=== PATIENT | male | born 1975 | race Caucasian/White ===

== ENCOUNTER 2019-02-10 11:03 | Emergency (ER) | payer OTHER ==
[~2019-02-10] VITALS: Ht 177.8 cm; Wt 158.8 kg
--- OUTSIDE RECORDS SUMMARY | 2019-02-10 11:08 | XMS REPORT ---
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
--- OUTSIDE RECORDS SUMMARY | 2019-02-10 11:08 | XMS REPORT | Continuity of Care Document ---
Author Organization Unknown Address Unknown Allergies There is no data. Medications There is no data. Problems There is no data. Procedures There is no data. Results Test Result Range GC/CHLAMYDIA (SWAB OR URINE)-RAPID - 11/12/18 15:50 CHLAMYDIA TRACHOMATIS RNA, TMA NOT DETECTED NOT DETECTED NEISSERIA GONORRHOEAE RNA, TMA NOT DETECTED NOT DETECTED COMMENT NRG Encounters ACCT No. Visit Date/Time Discharge Status Pt. Type Provider Facility Loc./Unit Complaint [id number] 11/12/2018 15:20:00 11/12/2018 23:59:59 CLS Outpatient BHARATH HANNA [facility] IN [facility] [id number] 11/12/2018 15:20:00 Document Registration
--- NOTE | 2019-02-10 11:24 | ED Upper Extremity ---
General Chief Complaint: Laceration Stated Complaint: WC RT FINGERS LAC Source: patient Exam Limitations: no limitations History of Present Illness Date Seen by Provider: Feb 10, 2019 Time Seen by Provider: 11:15 Initial Comments The patient is a pleasant 44-year-old male presents for evaluation of right fourth and fifth finger injuries. He states that he was at work using a saw and only cut his fingers. 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 He denies any other injuries or complaints. There is unsure of his most recent tetanus Onset: just prior to arrival Allergies and Home Medications Allergies Coded Allergies: No Known Drug Allergies (Unverified , 02/10/19) Patient Home Medication List Home Medication List Reviewed: Yes Review of Systems Constitutional: no symptoms reported EENTM: no symptoms reported Respiratory: no symptoms reported Cardiovascular: no symptoms reported Gastrointestinal: no symptoms reported Genitourinary: no symptoms reported Musculoskeletal: other (laceration to right fifth finger, superficial laceration to right fourth finger) Skin: no symptoms reported Psychiatric/Neurological: No Symptoms Reported All Other Systems Reviewed Negative Unless Noted: Yes Past Eeagatz-Oqgcpn-Vmkfov Hx Past Med/Social Hx: Reviewed Nursing Past Med/Soc Hx Patient Social History Alcohol Use: Occasionally Uses Recreational Drug Use: No Smoking Status: Never a Smoker 2nd Hand Smoke Exposure: No Recent Hopitalizations: No Physical Abuse: No Sexual Abuse: No Mistreated: No Fear: No Seasonal Allergies Seasonal Allergies: No Past Medical History Surgeries: Yes (lymph node removal) Respiratory: No Cardiac: Yes Hypertension Neurological: No Genitourinary: No Gastrointestinal: No Musculoskeletal: No Endocrine: No HEENT: No Cancer: No Psychosocial: No Integumentary: No Blood Disorders: No Adverse Reaction/Blood Tranf: No Physical Exam Vital Signs Vital Signs - First Documented 02/10/19 11:11 Temp 98.2 Pulse 87 Resp 16 B/P (MAP) 159/102 (121) Pulse Ox 95 Capillary Refill : Height, Weight, BMI Height: '" Weight: lbs. oz. kg; BMI Method: General Appearance: WD/WN HEENT: PERRL/EOMI, normal ENT inspection, TMs normal Cardiovascular: regular rate, rhythm, no edema Respiratory: chest non-tender, normal breath sounds, no respiratory distress Gastrointestinal: normal bowel sounds, non tender, soft Shoulder: normal inspection Elbow/Forearm: normal inspection Wrist: Yes normal inspection Hand: laceration (superficial laceration to the fourth digit of the right hand at the fingertip laterally, flap-like laceration to the right fifth digit with injury to the nail however no injury to the nail bed approximately 1.5 cm in total length), nail injury 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, alert, normal mood/affect, oriented x 3 Skin: normal color, warm/dry, other (laceration as described above) Procedures/Interventions Wound Location: Upper Extremities Other Wound Location Right fifth digit laceration through the fingertip going into the nail but no nail bed injury Wound's Depth, Shape: flap, nail-avulsed Wound Explored: clean Irrigated w/ Saline (ccs): 1000 Wound Debrided: moderate Suture: Vicryl Suture Size: 5-0 Number of Sutures: 4 Layer Closure?: 1 Sterile Dressing Applied?: Yes Progress Patient tolerated the repair well after performing a digital block on both the fourth and fifth digits, after soaking and cleaning the laceration to the fourth digit was quite superficial mild and was repaired with Dermabond. Progress/Results/Core Measures Results/Orders My Orders Orders - DAMON MILNER DO DiphtWander(Acell),Tet Adult (Boostrix (02/10/19 11:45) Lidocaine 1% Inj 50 Ml (Xylocaine 1% Inj (02/10/19 11:45) Lidocaine 1% Inj 20 Ml (Xylocaine 1% Inj (02/10/19 11:41) Lidocaine 1% Inj 20 Ml (Xylocaine 1% Inj (02/10/19 12:15) Medications Given in ED Current Medications Medications Dose Ordered Sig/Carol Route Start Time Stop Time Status Last Admin Dose Admin Diphtheria/ Tetanus/Acell Pertussis 0.5 ml ONCE ONCE IM 02/10/19 11:45 02/10/19 11:46 DC 02/10/19 11:49 0.5 ML Lidocaine HCl 20 ml ONCE ONCE INJ 02/10/19 12:15 02/10/19 12:16 DC 02/10/19 12:29 20 ML Vital Signs/I&O 02/10/19 11:11 Temp 98.2 Pulse 87 Resp 16 B/P (MAP) 159/102 (121) Pulse Ox 95 Progress Progress Note : Progress Note @1305 - Patient tolerated the repair very well. Tetanus has been updated. Four nylon 50 sutures were placed in the right fifth digit and Dermabond was used for the fourth digit as it was quite superficial. Patient will be given a prescription for Keflex to prevent infection. He is to follow up with his ar tificial health in 2-3 days for wound check and in 7-10 days for suture removal. Patient expresses verbal understanding and agreement with the plan and has no additional complaints. Departure Impression Primary Impression: Laceration of finger of right hand with damage to nail Disposition: 01 HOME, SELF-CARE Condition: Stable Departure-Patient Inst. Referrals: NO,LOCAL PHYSICIAN (PCP/Family) Primary Care Physician Patient Instructions: Laceration Repair With Stitches (DC), Laceration Repair With Glue (DC) Add. Discharge Instructions: As discussed her sutures should be removed in 7-10 days. Take the prescribed medications directed. Return to the ER for new or worsening symptoms. Follow-up with your doctor in the next 2-3 days for wound check. Scripts Cephalexin (Keflex) 500 Mg Capsule 500 MG PO TID for 7 Days, #21 CAP Prov: DAMON MILNER DO 02/10/19 DAMON MILNER DO Feb 10, 2019 11:24
[2019-02-10] MEDS ORDERED: LIDOCAINE 1% INJ 20 ML 20 ML VIAL ONE (11:41)
[2019-02-10] MEDS ORDERED: LIDOCAINE 1% INJ 50 ML (XYLOCAINE) VIAL IJ ONE (11:45)
[2019-02-10] MEDS ORDERED: TETANUS,DIPTH,PERTUSS P/F (BOOSTRIX) 0.5 ML VIAL IM ONE (11:45)
[2019-02-10] MEDS ORDERED: LIDOCAINE 1% INJ 20 ML 20 ML VIAL INJ ONE (12:15)
[2019-02-10] MEDS ORDERED: CEPH-507 PO (13:04)
[2019-02-10 13:18] VITALS: BP 134/96
== END 2019-02-10 13:18 | disposition home or self-care (01) ==
LOC: ER FS 11:05
DX: S61.316A Laceration without foreign body of right little finger with damage to nail, initial encounter (principal); S61.214A Laceration without foreign body of right ring finger without damage to nail, initial encounter; I10 Essential (primary) hypertension; Z23 Encounter for immunization; W31.2XXA Contact with powered woodworking and forming machines, initial encounter; Y92.59 Other trade areas as the place of occurrence of the external cause; Y99.0 Civilian activity done for income or pay
CPT/HCPCS: 12042; 90471; 90715

== ENCOUNTER 2020-12-04 16:55 | Inpatient (IN) | payer BC, OTHER ==
[~2020-12-04] VITALS: Ht 177.8 cm; Wt 174.4 kg
[~2020-12-04 16:55] MED LIST: CEPH-507 PO
[2020-12-04 17:00] VITALS: BP 138/83
--- NOTE | 2020-12-04 17:12 | ED Integumentary General ---
General Stated Complaint: PERINEAL ABCESS Source: patient Exam Limitations: no limitations History of Present Illness Date Seen by Provider: December 04, 2020 Time Seen by Provider: 17:03 Initial Comments This is a 45 yo male who was referred to the ER by [facility] for perineum abscess. Ekaterina SY reported patient was evaluated and treated yesterday for abscess behind his left thigh and left testicle. States she I&D both sites and was able to express moderate amount of purulent drainage from his posterior thigh, but none from his testicle. His thigh was packed with iodoform and covered with 4x4. He received Rocephin 1gm IM, steroid inj, and Doxycycline PO. He presented today for re-evaluation and was found to have increasing redness, induration and pain along his left testicle. Reports mild improvement of left thigh abscess. She recommended he follow up in the emergency department as he is an NIDDM and d/t the severity of symptoms within 24 hours. Upon ER arrival he reports 7/10 constant burning pain in his left testicle and left posterior thigh that radiates into his suprapubic region. No alleviating factors. Pain is worse with movement and ambulation. He denies fever, chills, cough, shortness of breath, nausea/vomiting, diarrhea, abdominal pain. Allergies and Home Medications Allergies Coded Allergies: No Known Drug Allergies (Unverified , 02/10/19) Home Medications Cephalexin 500 Mg Capsule, 500 MG PO TID Prescribed by: DAMON MILNER on 02/10/19 [id number] Patient Home Medication List Home Medication List Reviewed: Yes Review of Systems Review of Systems Constitutional: no symptoms reported EENTM: no symptoms reported Cardiovascular: no symptoms reported Gastrointestinal: see HPI Genitourinary: no symptoms reported Musculoskeletal: no symptoms reported Skin: see HPI Psychiatric/Neurological: No Symptoms Reported Endocrine: No Symptoms Reported Hematologic/Lymphatic: No Symptoms Reported Past Cdfzluk-Erylwx-Dpudoe Hx Patient Social History 2nd Hand Smoke Exposure: No Recent Hopitalizations: No Seasonal Allergies Seasonal Allergies: No Past Medical History Surgeries: Yes (lymph node removal) Respiratory: No Cardiac: Yes Hypertension Neurological: No Genitourinary: No Gastrointestinal: No Musculoskeletal: No Endocrine: No HEENT: No Cancer: No Psychosocial: No Integumentary: No Blood Disorders: No Adverse Reaction/Blood Tranf: No Physical Exam Vital Signs Vital Signs - First Documented 12/04/20 17:00 Temp 36.4 Pulse 89 Resp 20 B/P (MAP) 138/83 (101) Pulse Ox 94 O2 Delivery Room Air Capillary Refill : General Appearance: WD/WN, no apparent distress HEENT: PERRL/EOMI, normal ENT inspection, pharynx normal Neck: full range of motion, normal inspection Cardiovascular: normal peripheral pulses, regular rate, rhythm, no murmur Respiratory: chest non-tender, lungs clear, normal breath sounds, no respiratory distress, no accessory muscle use Gastrointestinal: normal bowel sounds, non tender, soft; No distended, No guarding, No hernia, No mass Extremities: non-tender, normal inspection, no pedal edema Neurologic/Psychiatric: no motor/sensory deficits, alert, normal mood/affect, oriented x 3 Skin: normal color, warm/dry Skin Problem Location: other (left posterior thigh and left testicle ) Skin Problem Character: erythema, swelling, tenderness, warm Comments Left posterior thigh: apx [id number] area of erythema and swelling. 0.5cm incision with iodoform packing in place. No sloughing, eschar, streaking, odor, or purulent drainage appreciated. Left testicle: apx 2mm incision, no drainage or discharge. Erythema and i nduration along the outer aspect of his left testicle ascending toward his suprapubic region. Tender to touch. No erythema/swelling or induration appreciated in the perianal region. Procedures/Interventions Suture Size: 5-0 Progress/Results/Core Measures Results/Orders Lab Results Laboratory Tests Test 12/04/20 17:25 Range/Units White Blood Count 11.6 H 4.3-11.0 10^3/uL Red Blood Count 5.02 4.30-5.52 10^6/uL Hemoglobin 14.6 13.3-17.7 g/dL Hematocrit 44 40-54 % Mean Corpuscular Volume 87 80-99 fL Mean Corpuscular Hemoglobin 29 25-34 pg Mean Corpuscular Hemoglobin Concent 33 32-36 g/dL Red Cell Distribution Width 13.3 10.0-14.5 % Platelet Count 320 130-400 10^3/uL Mean Platelet Volume 10.9 9.0-12.2 fL Immature Granulocyte % (Auto) 0 % Neutrophils (%) (Auto) 79 H 42-75 % Lymphocytes (%) (Auto) 11 L 12-44 % Monocytes (%) (Auto) 9 0-12 % Eosinophils (%) (Auto) 1 0-10 % Basophils (%) (Auto) 0 0-10 % Neutrophils # (Auto) 9.1 H 1.8-7.8 10^3/uL Lymphocytes # (Auto) 1.2 1.0-4.0 10^3/uL Monocytes # (Auto) 1.1 H 0.0-1.0 10^3/uL Eosinophils # (Auto) 0.1 0.0-0.3 10^3/uL Basophils # (Auto) 0.0 0.0-0.1 10^3/uL Immature Granulocyte # (Auto) 0.0 0.0-0.1 10^3/uL Prothrombin Time 13.7 12.2-14.7 SEC INR Comment 1.0 0.8-1.4 Activated Partial Thromboplast Time 26 24-35 SEC Sodium Level 137 135-145 MMOL/L Potassium Level 3.7 3.6-5.0 MMOL/L Chloride Level 98 98-107 MMOL/L Carbon Dioxide Level 29 21-32 MMOL/L Anion Gap 10 5-14 MMOL/L Blood Urea Nitrogen 16 7-18 MG/DL Creatinine 0.86 0.60-1.30 MG/DL Estimat Glomerular Filtration Rate > 60 BUN/Creatinine Ratio 19 Glucose Level 99 70-105 MG/DL Lactic Acid Level 1.27 0.50-2.00 MMOL/L Calcium Level 9.3 8.5-10.1 MG/DL Corrected Calcium 9.2 8.5-10.1 MG/DL Total Bilirubin 1.2 H 0.1-1.0 MG/DL Aspartate Amino Transf (AST/SGOT) 14 5-34 U/L Alanine Aminotransferase (ALT/SGPT) 23 0-55 U/L Alkaline Phosphatase 56 40-136 U/L Total Protein 7.6 6.4-8.2 GM/DL Albumin 4.1 3.2-4.5 GM/DL My Orders Orders - PATRICIO GALLARDO MANAGER CLINICAL RESEARCH Cbc With Automated Diff (12/04/20 17:03) Comprehensive Metabolic Panel (12/04/20 17:03) Blood Culture (12/04/20 17:03) Sputum Culture (12/04/20 17:03) Urinalysis (12/04/20 17:03) Urine Culture (12/04/20 17:03) Protime With Inr (12/04/20 17:03) Partial Thromboplastin Time (12/04/20 17:03) Chest 1 View, Ap/Pa Only (12/04/20 17:03) Ed Iv/Invasive Line Start (12/04/20 17:03) Vital Signs Adult Sepsis Patie Q15M (12/04/20 17:03) O2 (12/04/20 17:03) Lactic Acid Analyzer (12/04/20 17:03) Fentanyl Inj (Sublimaze Injection) (12/04/20 17:30) Ct Abdomen/Pelvis W (12/04/20 18:09) Diphenhydramine Injection (Benadryl Inje (12/04/20 18:45) Diphenhydramine Injection (Benadryl Inje (12/04/20 18:30) Iohexol Injection (Omnipaque 350 Mg/Ml 1 (12/04/20 19:00) Received Contrast (Hold Metformin- Contr (12/04/20 19:00) Ns (Ivpb) (Sodium Chloride 0.9% Ivpb Bag (12/04/20 19:00) Medications Given in ED Current Medications Medications Dose Ordered Sig/Carol Route Start Time Stop Time Status Last Admin Dose Admin Diphenhydramine HCl 25 mg ONCE ONCE IVP 12/04/20 18:45 12/04/20 18:46 DC 12/04/20 18:45 25 MG Fentanyl Citrate 50 mcg ONCE ONCE IVP 12/04/20 17:30 12/04/20 17:31 DC 12/04/20 18:11 50 MCG Iohexol 100 ml ONCE ONCE IV 12/04/20 19:00 12/04/20 19:01 DC 12/04/20 19:07 100 ML Sodium Chloride 100 ml ONCE ONCE IV 12/04/20 19:00 12/04/20 19:01 DC 12/04/20 19:07 80 ML Vital Signs/I&O 12/04/20 12/04/20 17:00 17:09 Temp 36.4 36.6 Pulse 89 99 Resp 20 17 B/P (MAP) 138/83 (101) 144/97 (113) Pulse Ox 94 O2 Delivery Room Air Progress Progress Note : Progress Note Patient examined and in no acute distress. With severity of symptoms in short time span and history of diabetes initial concern is for abscess, sepsis, and jessie gangrene. Initiated sepsis protocol. Orders placed for Fentanyl 50mcg IVP for pain. Will monitor. Labs reviewed and are unremarkable. WBC-11.6, lactic-1.[address] abd pelvis show distortion of the subcutaneous fat near the base of the penis and about the left testicle likely from inflammatory/ infectious process. Discussed findings with Dr. Coelho general surgery, recommended admission with IV antibiotics and US in am. Reviewed case with instructional leader hospitalist Dr. Johnson, accepted patient admission to medical unit. Reviewed POC with patient and spouse and they are agreeable with plan and this time. Plan: Admit to medical unit for cellulitis of left testicle. Cellulitis -Zosyn 3.375mg IV q 6 hours -Doxycycline 100mg PO BID -Consult General Surgery, done in ER -Regular diet -Activity as tolerated -VS per unit policy -HOLD metformin per protocol d/t contrast received in ED. Pain/fever -Fentanyl 50mcg IVP q2 hours PRN pain -Tylenol 650mg PO q6 hours PRN pain Nausea/vomiting -Zofran 4mg IVP q 6 hours PRN VTE -Lovenox 40mg subcut q24 hours FULL CODE Diagnostic Imaging Diagonstic Imaging: Xray Plain Films/CT/US/NM/MRI: chest Comments NAME: GEOVANNY ISBELL [facility] REC#: [id number] PT STATUS: REG ER : 1975 PHYSICIAN: PATRICIO GALLARDO MANAGER CLINICAL RESEARCH ADMIT DATE: 12/04/20/ER Draft Date of Exam:12/04/20 CHEST 1 VIEW, AP/PA ONLY EXAMINATION: Portable erect AP chest at 6:10 p.m. INDICATION: Perineal abscess. COMPARISON: There are no prior exams available for comparison. FINDINGS: The heart size is within normal limits. The lungs are clear. The osseous structures, where visualized, are intact. IMPRESSION: Negative for active disease. Dictated on workstation # [id number] Dict: 12/04/20 1828 Trans: 12/04/20 183 [facility] [id number] Interpreted by: MIRIAM SMALL MD Electronically signed by: Reviewed: Reviewed by Me Diagonstic Imaging: CT Plain Films/CT/US/NM/MRI: abdomen, pelvis Comments [facility] [place] NAME: GEOVANNY ISBELL [facility] REC#: [id number] PT STATUS: REG ER : 1975 PHYSICIAN: PATRICIO GALLARDO MANAGER CLINICAL RESEARCH ADMIT DATE: 12/04/20/ER Draft Date of Exam:12/04/20 CT ABDOMEN/PELVIS W PROCEDURE: CT abdomen and pelvis with contrast. TECHNIQUE: Multiple contiguous axial images were obtained through the abdomen and pelvis after administration of intravenous contrast. Auto Exposure Controls were utilized during the CT exam to meet ALARA standards for radiation dose reduction. All CT scans use one or more of the following dose optimizing techniques: automated exposure control, MA and/or KvP adjustment based on patient size and exam type or iterative reconstruction. INDICATION: Left testicular and low abdominal pain. COMPARISON: There are no prior studies available for comparison. There is no pelvic mass or free fluid collection to suggest an acute abnormality. However, there does seem be some distortion of the subcutaneous fat about the base of the penis and along the left scrotum where visualized. This does suggest an inflammatory/infectious process. If further study is desired, then testicular ultrasound would be recommended. The urinary bladder and prostate gland are grossly unremarkable. There are few diverticula in the sigmoid colon but there is no sign of acute diverticulitis. The appendix was visualized and is not abnormally thickened. The liver, spleen, pancreas, gallbladder, adrenals, kidneys, aorta and inferior vena cava and portal vein are unremarkable for an acute abnormality. The stomach is partially filled with fluid and consequently difficult to assess. The lung bases are clear. The bone windows are unremarkable for a fracture or for a destructive lesion. There is degenerative disc and bone disease at L4-L5 and L5-S1. IMPRESSION: 1. The distortion of the subcutaneous fat near the base of the penis and about the left testicle does suggest an inflammatory/infectious process. Ultrasound would be recommended for further evaluation. 2. There is no acute abnormality of the abdomen and pelvis noted otherwise. 3. There is degenerative disc and bony disease at L4-L5 and L5-S1. Dictated on workstation # [id number] Dict: 12/04/201930 Trans: 12/04/201937 [facility] [id number] Interpreted by: MIRIAM SMALL MD Electronically signed by: Reviewed: Reviewed by Me Departure Communication (Admissions) Time/Spoke to Admitting Phy: 20:[address] Johnson, accepted patient admission. Impression Primary Impression: Cellulitis Disposition: ADMITTED INPATIENT Condition: Stable Admissions Decision to Admit Reason: Admit from ER (General) Decision to Admit/Date: December 04, 2020 Time/Decision to Admit Time: 20:11 Departure-Patient Inst. Referrals: NO,LOCAL PHYSICIAN (PCP/Family) Primary Care Physician PATRICIO GALLARDO MANAGER CLINICAL RESEARCH December 04, 2020 17:12
[2020-12-04] MEDS ORDERED: fentaNYL INJ 100 MCG/2 ML AMP IVP ONE (17:30)
[2020-12-04 17:40] LABS: BASOPHILS % (AUTO) 0 % (0-10); EOSINOPHILS # (AUTO) 0.1 10^3/uL (0.0-0.3); EOSINOPHILS % (AUTO) 1 % (0-10); HEMATOCRIT 44 % (40-54); HEMOGLOBIN 14.6 g/dL (13.3-17.7); LYMPHOCYTES # (AUTO) 1.2 10^3/uL (1.0-4.0); LYMPHOCYTES % (AUTO) 11 % (12-44); MEAN CORPUSCULAR HEMOGLOBIN 29 pg (25-34); MEAN CORPUSCULAR HGB CONC 33 g/dL (32-36); MEAN CORPUSCULAR VOLUME 87 fL (80-99); MEAN PLATELET VOLUME 10.9 fL (9.0-12.2); MONOCYTES # (AUTO) 1.1 10^3/uL (0.0-1.0); MONOCYTES % (AUTO) 9 % (0-12); NEUTROPHILS # (AUTO) 9.1 10^3/uL (1.8-7.8); NEUTROPHILS % (AUTO) 79 % (42-75); PLATELET COUNT 320 10^3/uL (130-400); WHITE BLOOD COUNT 11.6 10^3/uL (4.3-11.0)
[2020-12-04 17:48] LABS: ALBUMIN 4.1 GM/DL (3.2-4.5)
[2020-12-04 17:49] LABS: CHLORIDE 98 MMOL/L (98-107); POTASSIUM 3.7 MMOL/L (3.6-5.0); SODIUM 137 MMOL/L (135-145)
[2020-12-04 17:50] LABS: CALCIUM 9.3 MG/DL (8.5-10.1)
[2020-12-04 17:51] LABS: GLUCOSE 99 MG/DL (70-105); TOTAL PROTEIN 7.6 GM/DL (6.4-8.2)
[2020-12-04 17:52] LABS: CARBON DIOXIDE 29 MMOL/L (21-32)
[2020-12-04 17:53] LABS: BILIRUBIN,TOTAL 1.2 MG/DL (0.1-1.0)
[2020-12-04 17:54] LABS: ALKALINE PHOSPHATASE 56 U/L (40-136)
[2020-12-04 17:55] LABS: CREATININE SERUM 0.86 MG/DL (0.60-1.30); GFR ESTIMATED > 60; PROTHROMBIN TIME PATIENT 13.7 SEC (12.2-14.7)
[2020-12-04 17:56] LABS: BUN/CREATININE RATIO 19
[2020-12-04 17:57] LABS: ALANINE AMINOTRANSFERASE 23 U/L (0-55)
[2020-12-04] MEDS ORDERED: diphenhydrAMINE 50 MG/ML INJ (BENADRYL) ONE (18:30)
--- NOTE | 2020-12-04 18:32 | Diagnostic Imaging Report ---
EXAMINATION: Portable erect AP chest at 6:10 p.m. INDICATION: Perineal abscess. COMPARISON: There are no prior exams available for comparison. FINDINGS: The heart size is within normal limits. The lungs are clear. The osseous structures, where visualized, are intact. IMPRESSION: Negative for active disease. Dictated by: Dictated on workstation # [id number]
[2020-12-04] MEDS ORDERED: diphenhydrAMINE 50 MG/ML INJ (BENADRYL) IVP ONE (18:45)
[2020-12-04] MEDS ORDERED: IOHEXOL 350 MG/ML 100 ML (OMNIPAQUE 350) VIAL IV ONE (19:00)
[2020-12-04] MEDS ORDERED: NS 100 ML (IVPB) BAG IV ONE (19:00)
[2020-12-04] MEDS ORDERED: HOLD METFORMIN - RECEIVED CONTRAST 20 ML VIAL IV SCH (19:00)
--- NOTE | 2020-12-04 19:38 | Diagnostic Imaging Report ---
PROCEDURE: CT abdomen and pelvis with contrast. TECHNIQUE: Multiple contiguous axial images were obtained through the abdomen and pelvis after administration of intravenous contrast. Auto Exposure Controls were utilized during the CT exam to meet ALARA standards for radiation dose reduction. All CT scans use one or more of the following dose optimizing techniques: automated exposure control, MA and/or KvP adjustment based on patient size and exam type or iterative reconstruction. INDICATION: Left testicular and low abdominal pain. COMPARISON: There are no prior studies available for comparison. There is no pelvic mass or free fluid collection to suggest an acute abnormality. However, there does seem be some distortion of the subcutaneous fat about the base of the penis and along the left scrotum where visualized. This does suggest an inflammatory/infectious process. If further study is desired, then testicular ultrasound would be recommended. The urinary bladder and prostate gland are grossly unremarkable. There are few diverticula in the sigmoid colon but there is no sign of acute diverticulitis. The appendix was visualized and is not abnormally thickened. The liver, spleen, pancreas, gallbladder, adrenals, kidneys, aorta and inferior vena cava and portal vein are unremarkable for an acute abnormality. The stomach is partially filled with fluid and consequently difficult to assess. The lung bases are clear. The bone windows are unremarkable for a fracture or for a destructive lesion. There is degenerative disc and bone disease at L4-L5 and L5-S1. IMPRESSION: 1. The distortion of the subcutaneous fat near the base of the penis and about the left testicle does suggest an inflammatory/infectious process. Ultrasound would be recommended for further evaluation. 2. There is no acute abnormality of the abdomen and pelvis noted otherwise. 3. There is degenerative disc and bony disease at L4-L5 and L5-S1. Dictated by: Dictated on workstation # [id number]
[2020-12-04 21:15] VITALS: BP 138/83
[2020-12-04] MEDS ORDERED: ACETAMINOPHEN 325 MG TABLET PO PRN (21:30)
[2020-12-04] MEDS ORDERED: CATHETER FLUSH 10 ML SYR IV PRN (21:30)
[2020-12-04] MEDS ORDERED: ONDANSETRON 4 MG/2 ML (SDV) Z0FRAN IV PRN (21:30)
[2020-12-04] MEDS ORDERED: fentaNYL INJ 100 MCG/2 ML AMP IV PRN (21:30)
[2020-12-04] MEDS ORDERED: PIPERACILLIN/TAZO 4.5 GM VIAL (ZOSYN) IV ONE ×2 (22:00→22:01)
[2020-12-04] MEDS ORDERED: PIPERACILLIN/TAZO 4.5 GM/NS 100 ML IV ONE ×2 (22:00)
[2020-12-04] MEDS ORDERED: NS (IVPB) 200 ML ONE (22:01)
[2020-12-04] MEDS: DOXYCYCLINE 100 MG (VIBRAMYCIN) TABLET PO SCH (22:22)
[2020-12-04] MEDS: CATHETER FLUSH 10 ML SYR IV SCH (22:24)
[2020-12-04 23:30] VITALS: BP 127/90
[2020-12-04] MEDS ORDERED: RT-ALBUTEROL/IPRATROPIUM 3 ML (DUONEB) VIAL INH PRN (23:45)
[2020-12-04 23:57] VITALS: BP 131/74
[2020-12-05] MEDS ORDERED: LOSA100T57 PO (02:46)
[2020-12-05] MEDS ORDERED: AMLO-250 PO (02:46)
[2020-12-05] MEDS ORDERED: HYDR25TA4 PO (02:46)
[2020-12-05] MEDS ORDERED: METF-397 PO (02:46)
[2020-12-05] MEDS: PIPERACILLIN/TAZO 4.5 GM/NS 100 ML IV SCH ×6 (03:19→19:50)
[2020-12-05 03:27] VITALS: BP 139/83
[2020-12-05 05:03] LABS: BASOPHILS % (AUTO) 0 % (0-10); EOSINOPHILS # (AUTO) 0.2 10^3/uL (0.0-0.3); EOSINOPHILS % (AUTO) 2 % (0-10); HEMATOCRIT 41 % (40-54); HEMOGLOBIN 13.5 g/dL (13.3-17.7); LYMPHOCYTES # (AUTO) 1.5 10^3/uL (1.0-4.0); LYMPHOCYTES % (AUTO) 15 % (12-44); MEAN CORPUSCULAR HEMOGLOBIN 29 pg (25-34); MEAN CORPUSCULAR HGB CONC 33 g/dL (32-36); MEAN CORPUSCULAR VOLUME 87 fL (80-99); MEAN PLATELET VOLUME 10.9 fL (9.0-12.2); MONOCYTES % (AUTO) 10 % (0-12); NEUTROPHILS # (AUTO) 7.3 10^3/uL (1.8-7.8); NEUTROPHILS % (AUTO) 73 % (42-75); PLATELET COUNT 279 10^3/uL (130-400)
[2020-12-05 05:20] LABS: CHLORIDE 101 MMOL/L (98-107); POTASSIUM 3.3 MMOL/L (3.6-5.0); SODIUM 137 MMOL/L (135-145)
[2020-12-05 05:22] LABS: CALCIUM 9.1 MG/DL (8.5-10.1); GLUCOSE 120 MG/DL (70-105)
[2020-12-05 05:24] LABS: CARBON DIOXIDE 26 MMOL/L (21-32)
[2020-12-05 05:26] LABS: CREATININE SERUM 0.84 MG/DL (0.60-1.30); GFR ESTIMATED > 60
[2020-12-05 05:27] LABS: BUN/CREATININE RATIO 19
[2020-12-05] MEDS: CATHETER FLUSH 10 ML SYR IV SCH ×3 (06:38→19:51)
[2020-12-05] MEDS: DOXYCYCLINE 100 MG (VIBRAMYCIN) TABLET PO SCH ×3 (06:38→18:29)
[2020-12-05 07:59] VITALS: BP 135/69
[2020-12-05] MEDS: ENOXAPARIN 60 MG/0.6 ML (LOVENOX) SYR SC SCH ×2 (08:21→20:10)
--- NOTE | 2020-12-05 09:18 | History & Physical-Hospitalist ---
History of Present Illness HPI/Chief Complaint Pt is a 45yoCM with a PMH of HTn and prediabetes who presented to the ER duet o thigh and testicle abscess and cellulitis. He states he first noticed it on 12/01 but didn't think much of it because he though it was an ingrown hair. 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 He was seen at [facility] where they preformed an incision and drainage of an abscess on his thigh which drained and one of his left testicle which did not drain anything. They gave him Rocephin and Doxycycline. He returned yesterday for a wound check adn to get it repacked and they noticed the erythema was worse and referred him to the ER. Here he was found to have a leukocytosis and was admitted. He reports feeling ok this morning but it is still quite painful. Awaiting usg results. Source: patient Date Seen 12/05/20 Time Seen by a Provider: 09:18 Attending Physician Josselin Johnson MD PCP No,Local Physician Referring Physician Date of Admission December 04, 2020 at 20:28 Home Medications & Allergies Home Medications Reviewed patient Home Medication Reconciliation performed by pharmacy medication reconciliations certified bench jeweler technician and/or nursing. Patients Allergies have been reviewed. Allergies Allergies Coded Allergies No Known Drug Allergies (Unverified02/10/19) Past Medical/Social/Family Hx Patient Social History Marrital Status: Employed/Student: employed Tobacco Use?: No Smoking Status: Never a Smoker Substance use?: No Alcohol Use?: No Pt stated abuse/neglect: No Immunizations Up To Date Influenza Vaccine Up-to-Date: No; Not Current First/Initial COVID19 Vaccinat: September 17 Second COVID19 Vaccination Jeronimo: October 18 Current Status Advance Directives: No Advance Directive Location: Home Communicates: Verbally Primary Language: Bruneian Preferred Spoken Language: Bruneian Is interpretation needed?: No Implanted or Applied Medical D: None Past Medical History HTN, Prediabetes Review of Systems Constitutional: No chills, No fever EENTM: no symptoms reported Respiratory: No cough, No short of breath Cardiovascular: No chest pain, No edema Gastrointestinal: No abdominal pain, No constipation, No diarrhea, No nausea, No vomiting Genitourinary: see HPI; No dysuria, No frequency Musculoskeletal: no symptoms reported Skin: see HPI Psychiatric/Neurological: No Symptoms Reported Physical Exam Physical Exam Vital Signs Vital Signs - First Documented 12/04/20 12/04/20 17:00 23:30 Temp 36.4 Pulse 89 Resp 20 B/P (MAP) 138/83 (101) Pulse Ox 94 O2 Delivery Room Air FiO2 21 Capillary Refill : Less Than 3 Seconds Height, Weight, BMI Height: 5'10.00" Weight: 350lbs. oz. 158.039143sw; 55.16 BMI Method:Stated General Appearance: No Apparent Distress, WD/WN, Obese HEENT: PERRL/EOMI, Moist Mucous Membranes Neck: Normal Inspection, Supple Respiratory: Lungs Clear, No Accessory Muscle Use, No Respiratory Distress Cardiovascular: Regular Rate, Rhythm, No Murmur Gastrointestinal: Normal Bowel Sounds, Soft Extremity: No Calf Tenderness, No Pedal Edema Neurologic/Psychiatric: Alert, Oriented x3, Normal Mood/Affect Skin: Normal Color, Warm/Dry Results Results/Procedures Labs Laboratory Tests 12/04/20 17:25 12/05/20 04:40 Patient resulted labs reviewed. Imaging: Reviewed Imaging Report Imaging [facility], [place] NAME: GEOVANNY ISBELL [facility] REC#: [id number] PT STATUS: ADM IN : 1975 PHYSICIAN: PATRICIO GALLARDO APRN ADMIT DATE: 12/04/20 Signed Date of Exam:12/04/20 CT ABDOMEN/PELVIS W PROCEDURE: CT abdomen and pelvis with contrast. TECHNIQUE: Multiple contiguous axial images were obtained through the abdomen and pelvis after administration of intravenous contrast. Auto Exposure Controls were utilized during the CT exam to meet ALARA standards for radiation dose reduction. All CT scans use one or more of the following dose optimizing techniques: automated exposure control, MA and/or KvP adjustment based on patient size and exam type or iterative reconstruction. INDICATION: Left testicular and low abdominal pain. COMPARISON: There are no prior studies available for comparison. There is no pelvic mass or free fluid collection to suggest an acute abnormality. However, there does seem be some distortion of the subcutaneous fat about the base of the penis and along the left scrotum where visualized. This does suggest an inflammatory/infectious process. If further study is desired, then testicular ultrasound would be recommended. The urinary bladder and prostate gland are grossly unremarkable. There are few diverticula in the sigmoid colon but there is no sign of acute diverticulitis. The appendix was visualized and is not abnormally thickened. The liver, spleen, pancreas, gallbladder, adrenals, kidneys, aorta and inferior vena cava and portal vein are unremarkable for an acute abnormality. The stomach is partially filled with fluid and consequently difficult to assess. The lung bases are clear. The bone windows are unremarkable for a fracture or for a destructive lesion. There is degenerative disc and bone disease at L4-L5 and L5-S1. IMPRESSION: 1. The distortion of the subcutaneous fat near the base of the penis and about the left testicle does suggest an inflammatory/infectious process. Ultrasound would be recommended for further evaluation. 2. There is no acute abnormality of the abdomen and pelvis noted otherwise. 3. There is degenerative disc and bony disease at L4-L5 and L5-S1. Dictated by: Dictated on workstation # [id number] Dict: 12/04/201930 Trans: 12/05/2052 [facility] [id number] Interpreted by: MIRIAM SMALL MD Electronically signed by: MIRIAM SMALL MD 12/05/20 0053 Assessment/Plan Admission Diagnosis Scrotal Cellulitis Admission Status: Inpatient Order (span 2 midnights) Reason for Inpatient Admission: see below Assessment and Plan Scrotal Cellulitis s/p outpatient I&D and antibiotics with worsening Continue on IV abx Await cultures Surgery consulted, appreciate recs HTN Resume home meds Prediabetes Metformin held due to contrast BS 120 fasting DVT ppx: Lovenox PIPPA DAVE MD December 05, 2020 09:18
--- NOTE | 2020-12-05 09:57 | Diagnostic Imaging Report ---
PROCEDURE: US Scrotum. TECHNIQUE: Multiple real-time grayscale images were obtained over the scrotum in various projections bilaterally. INDICATION: Cellulitis of the left scrotum. Correlation is made with recent CT study from one day earlier. Right testicle measures 5.0 x 2.3 x 3.4 cm and the left testicle measures 4.7 x 2.6 x 3.2 cm. Both testes show homogeneous echotexture. No testicular mass is seen. There is normal blood flow to both testes. Epidermides are unremarkable. There is a small right hydrocele. No varicocele is seen. No abnormal fluid collections are identified. IMPRESSION: Essentially unremarkable scrotal ultrasound. Dictated by: Dictated on workstation # [id number]
[2020-12-05] MEDS ORDERED: NAPR220T66 PO (10:12)
[2020-12-05] MEDS ORDERED: DOXY100T2 PO (10:12)
[2020-12-05] MEDS ORDERED: CETI10TA49 PO (10:12)
[2020-12-05 11:22] VITALS: BP 146/84
[2020-12-05] MEDS ORDERED: LORATADINE (CLARITIN) 10 MG TAB PO PRN (12:15)
[2020-12-05 15:39] VITALS: BP 137/85
[2020-12-05 19:45] VITALS: BP 137/79
[2020-12-05] MEDS ORDERED: amLODIPine 5 MG (NORVASC) TAB PO SCH (21:00)
--- NOTE | 2020-12-05 21:50 | Consultation - Surgery ---
History of Present Illness History of Present Illness Patient Consulted On(jewels/time) 12/05/20 21:42 Date Seen by Provider: December 05, 2020 Time Seen by Provider: 13:00 History of Present Illness Consult requested by Dr. Nieto for abscess left buttock/cellulitis status post incision and drainage from urgent care Patient is a 45-year-old male who 5 days ago began developing what he thought was an ingrown hair. This continued to worsen and get bigger in size therefore patient was seen in urgent care and incision and drainage was performed on the left buttock and also near the base of the penis on the left. Patient continued to have slightly worsening symptoms and was seen in reevaluation at the urgent care which apparently appeared to be worsening [facility] Patient had a CT scan performed which demonstrated ventilatory changes around the base of the appendix and suggested ultrasound to be done. Patient was admitted for IV antibiotics and further imaging studies. Patient ultrasound performed that was unremarkable of the scrotum. Patient this time denies any nausea vomiting fever sweats chills shortness of breath or chest pain. He does have some uncomfortable feeling near the base of the penis in the subcutaneous tissue. Allergies and Home Medications Allergies Coded Allergies: No Known Drug Allergies (Unverified , 02/10/19) Home Medications Amlodipine Besylate 5 Mg Tablet, 5 MG PO HS, (Reported) Last Action: Continued Cetirizine HCl 10 Mg Tablet, 10 MG PO DAILY PRN for ALLERGY SYMPTOMS, (Reported) Last Action: Converted Doxycycline Hyclate 100 Mg Tablet, 100 MG PO BID, (Reported) FILLED 12-03-2020 #20/ DAY SUPPLY Last Action: Held Hydrochlorothiazide 25 Mg Tablet, 25 MG PO DAILY, (Reported) Last Action: Continued Losartan Potassium 100 Mg Tablet, 100 MG PO DAILY, (Reported) Last Action: Continued Metformin HCl 500 Mg Tablet, 500 MG PO BID, (Reported) Last Action: Held Naproxen Sodium 220 Mg Tablet, 220-440 MG PO BID PRN for PAIN-MILD (1-4), (Reported) Last Action: Reviewed Patient Home Medication List Home Medication List Reviewed: Yes Past Lmdfbiz-Aodprv-Txyuhe Hx Patient Social History Number of Drinks Today: 0 Smoking Status: Never a Smoker 2nd Hand Smoke Exposure: No Recent Hopitalizations: No Alcohol Use?: No Have you traveled recently?: No Seasonal Allergies Seasonal Allergies: No Surgeries History of Surgeries: Yes (lymph node removal from left side of neck) Respiratory History of Respiratory Disorde: No Cardiovascular History of Cardiac Disorders: Yes Cardiac Disorders: Hypertension Neurological History of Neurological Disord: No Genitourinary History of Genitourinary Disor: No Gastrointestinal History of Gastrointestinal Di: No Musculoskeletal History of Musculoskeletal Dis: No Endocrine History of Endocrine Disorders: No HEENT History of HEENT Disorders: No Cancer History of Cancer: No Psychosocial History of Psychiatric Problem: No Integumentary History of Skin or Integumenta: No Blood Transfusions History of Blood Disorders: No Adverse Reaction to a Blood Tr: No Reviewed Nursing Assessment Reviewed/Agree w Nursing PMH: Yes Family Medical History Significant Family History: No Pertinent Family Hx Review of Systems-General Constitutional: No chills EENTM: No double vision Respiratory: No cough, No dyspnea on exertion Cardiovascular: No chest pain, No palpitations Gastrointestinal: No abdominal pain, No nausea, No vomiting Genitourinary: No decreased output, No discharge Musculoskeletal: No back pain, No joint pain Skin: change in color All Other Systems Reviewed Negative Unless Noted: Yes (Negative excepted noted.) Physical Exam-General Problems Physical Exam Vital Signs Vital Signs - First Documented 12/04/20 12/04/20 17:00 23:30 Temp 36.4 Pulse 89 Resp 20 B/P (MAP) 138/83 (101) Pulse Ox 94 O2 Delivery Room Air FiO2 21 Capillary Refill : Less Than 3 Seconds General Appearance: WD/WN, no apparent distress HEENT: PERRL/EOMI, normal ENT inspection Neck: non-tender, supple Respiratory: chest non-tender, no respiratory distress, no accessory muscle use Cardiovascular: regular rate, rhythm, no JVD Gastrointestinal: non tender, soft, no organomegaly Rectal: deferred Genital/Rectal: other (fullness along left cord, no fluctuance but indurated, small skin opening upper left of scrotum/left buttock with small opening packed, minimal surrounding erythema slight induration,) Back: no CVA tenderness, no vertebral tenderness Extremities: non-tender, normal inspection Neurologic/Psychiatric: alert, normal mood/affect, oriented x 3 Skin: normal color (except slight erythema as noted above), warm/dry Lymphatic: no adenopathy Data Review Labs Laboratory Tests 12/05/20 04:40: White Blood Count 10.0, Red Blood Count 4.69, Hemoglobin 13.5, Hematocrit 41, Mean Corpuscular Volume 87, Mean Corpuscular Hemoglobin 29, Mean Corpuscular Hemoglobin Concent 33, Red Cell Distribution Width 13.4, Platelet Count 279, Mean Platelet Volume 10.9, Immature Granulocyte % (Auto) 0, Neutrophils (%) (Auto) 73, Lymphocytes (%) (Auto) 15, Monocytes (%) (Auto) 10, Eosinophils (%) (Auto) 2, Basophils (%) (Auto) 0, Neutrophils # (Auto) 7.3, Lymphocytes # (Auto) 1.5, Monocytes # (Auto) 1.0, Eosinophils # (Auto) 0.2, Basophils # (Auto) 0.0, Immature Granulocyte # (Auto) 0.0, Sodium Level 137, Potassium Level 3.3L, Chloride Level 101, Carbon Dioxide Level 26, Anion Gap 10, Blood Urea Nitrogen 16, Creatinine 0.84, Estimat Glomerular Filtration Rate > 60, BUN/Creatinine Ratio 19, Glucose Level 120H, Calcium Level 9.1 Microbiology 12/04/20 Blood Culture - Preliminary, Resulted No growth Assessment/Plan Assessment/Plan Assessment/Plan left buttock abscess cellulitis DM s/p incision and drainage performed by urgent care Patient to conitnue to do wound care to localized open areas conitnue abx no fluid collections that could be drained at this time further. u/s LAYA Alejo DO December 05, 2020 21:50
[2020-12-05 23:22] VITALS: BP 117/69
[2020-12-06] MEDS: PIPERACILLIN/TAZO 4.5 GM/NS 100 ML IV SCH ×4 (04:51→12:09)
[2020-12-06] MEDS: CATHETER FLUSH 10 ML SYR IV SCH ×2 (04:51→12:09)
[2020-12-06 04:52] VITALS: BP 119/76
[2020-12-06] MEDS: DOXYCYCLINE 100 MG (VIBRAMYCIN) TABLET PO SCH ×2 (05:56→17:50)
[2020-12-06 08:18] VITALS: BP 133/84
[2020-12-06] MEDS ORDERED: LOSARTAN 100 MG (COZAAR) TABLET PO SCH (09:00)
[2020-12-06] MEDS: ENOXAPARIN 60 MG/0.6 ML (LOVENOX) SYR SC SCH (09:40)
[2020-12-06] MEDS ORDERED: AMOX-358 PO (10:56)
--- NOTE | 2020-12-06 11:05 | Discharge Inst-Simple/Standard ---
Discharge Inst-Standard Discharge Medications New, Converted or Re-Newed RX: Transmitted to Pharmacy Patient Instructions/Follow Up Plan of Care/Instructions/FU: Please continue to take your medications as written. Please follow up with your primary care doctor to follow up this hospital stay. Activity as Tolerated: Yes Discharge Diet: No Restrictions Return to The Hospital For: Chest pain, shortness of breath, fever, worsening swelling/redness/or draining, if you feel you are getting worse. PIPPA DAVE MD December 06, 2020 11:05
--- NOTE | 2020-12-06 11:07 | Discharge Summary ---
Diagnosis/Chief Complaint Date of Admission December 04, 2020 at 20:28 Date of Discharge Discharge Date: December 06, 2020 Admission Diagnosis Scrotal Cellulitis Primary Care No,Local Physician Discharge Summary Procedures/Consulations Dr Coelho- Surgery Discharge Physical Exam Allergies: Coded Allergies: No Known Drug Allergies (Unverified , 02/10/19) Vitals & I&Os Vital Signs Date Time Temp Pulse Resp B/P (MAP) Pulse Ox O2 Delivery O2 Flow Rate FiO2 12/06/20 19:31 12/06/20 16:00 36.5 78 20 95 Room Air 12/04/20 23:30 21 General Appearance: No Apparent Distress, WD/WN, Obese Cardiovascular: Regular Rate, Rhythm, No Murmur Neurologic/Psychiatric: Alert, Oriented x3 Hospital Course Pt was admitted to [facility] due to testicular cellulitis after failing outpatient management. He was treated with Zosyn and doxycycline and responded very well. His blood cultures were negative. He continud to improve so after two nights in the hospital he was discharged home ins table condition. He is to follow up with Dr Coelho for further wound care/packing. I called and updated Dr Treadwell regarding the details of this hospital stay as well. Labs (last 24 hrs) Microbiology 12/04/20 Blood Culture - Preliminary, Resulted No growth Patient resulted labs reviewed. Imaging: Reviewed Imaging Report Discussion & Recommendations Discharge Planning: >30 minutes discharge planning Discharge Home Medications: Active Scripts Active Augmentin 875-125 Tablet (Amoxicillin/Potassium Clav) 1 Each Tablet 1 Each PO BID Reported Zyrtec (Cetirizine HCl) 10 Mg Tablet 10 Mg PO DAILY PRN Aleve (Naproxen Sodium) 220 Mg Tablet 220-440 Mg PO BID PRN Doxycycline Hyclate 100 Mg Tablet 100 Mg PO BID FILLED 12-03-2020 #20/10 DAY SUPPLY Losartan Potassium 100 Mg Tablet 100 Mg PO DAILY Hydrochlorothiazide 25 Mg Tablet 25 Mg PO DAILY Amlodipine Besylate 5 Mg Tablet 5 Mg PO HS Metformin HCl 500 Mg Tablet 500 Mg PO BID Instructions to patient/family Please see electronic discharge instructions given to patient. PIPPA DAVE MD December 06, 2020 11:07
[2020-12-06 11:42] VITALS: BP 147/85
[2020-12-06 16:00] VITALS: BP 145/80
--- NOTE | 2020-12-06 16:39 | Progress Note - Surgery ---
Subjective Date Seen by a Provider: December 06, 2020 Time Seen by a Provider: 11:21 Subjective/Events-last exam Patient feeling better. No new complaints. Patient states left buttock feeling better. Left scrotal area same to slightly better. Denies fever sweats chills shortness of breath or chest pain. Focused Exam Lactate Level 12/04/20 17:25: Lactic Acid Level 1.27 Objective Exam Vital Signs Date Time Temp Pulse Resp B/P (MAP) Pulse Ox O2 Delivery O2 Flow Rate FiO2 12/06/20 11:42 36.6 89 17 147/85 (105) 96 Room Air 12/06/20 08:18 36.4 84 17 133/84 (100) 95 Room Air 12/06/20 08:00 Room Air 12/06/20 04:52 36.4 95 20 119/76 (90) 95 Room Air 12/05/20 23:22 36.2 88 20 117/69 (85) 93 Room Air 12/05/20 19:50 Room Air 12/05/20 19:45 36.5 95 20 137/79 (98) 96 Room Air 12/05/20 18:20 92 Room Air I & O 12/06/20 07:00 Intake Total 1690 ml Output Total 450 ml Balance 1240 ml Capillary Refill : Less Than 3 Seconds General Appearance: No Apparent Distress, WD/WN, Obese HEENT: PERRL/EOMI, Moist Mucous Membranes Neck: Normal Inspection, Supple Respiratory: Chest Non Tender, No Accessory Muscle Use, No Respiratory Distress Cardiovascular: Regular Rate, Rhythm, No Murmur Gastrointestinal: non tender, soft, no organomegaly Extremity: No Calf Tenderness, No Pedal Edema Neurologic/Psychiatric: Alert, Oriented x3, Normal Mood/Affect Skin: Normal Color, Warm/Dry, Other (induration around left spermatic cord and small skin opening no drainage, left buttock less induration/erythema) Results Lab Microbiology 12/04/20 Blood Culture - Preliminary, Resulted No growth Assessment/Plan Assessment/Plan Assessment/Plan left buttock abscess cellulitis DM s/p incision and drainage performed by urgent care Patient to continue to do wound care to localized open areas continue abx no fluid collections that could be drained at this time further. u/s unremarkable can follow up with me or his pcp at discharge for continued management LAYA MARTE DO December 06, 2020 16:39
== END 2020-12-06 19:35 | disposition home or self-care (01) | DRG 728 ==
LOC: EDUNIT# 16:55 → ER 16:59 → 4TH 20:28
PROVIDERS: ADMIT Internal Medicine; ATTEND Internal Medicine
DX: N49.2 Inflammatory disorders of scrotum (principal); L02.31 Cutaneous abscess of buttock; E11.9 Type 2 diabetes mellitus without complications; I10 Essential (primary) hypertension; Z79.2 Long term (current) use of antibiotics
CPT/HCPCS: 36415; 71045; 74177; 76870; 80048; 80053; 83605; 85025; 85610; 85730; 87040

== ENCOUNTER 2020-12-09 08:00 | Outpatient (RCR) | payer BC ==
[2020-12-07 14:20] VITALS: BP 143/100
[2020-12-08 08:23] VITALS: BP 164/116
[~2020-12-09 08:00] MED LIST changes: +AMLO-250 PO; +AMOX-358 PO; +CETI10TA49 PO; +DOXY100T2 PO; +HYDR25TA4 PO; +LOSA100T57 PO; +METF-397 PO; +NAPR220T66 PO
[2020-12-09 08:18] VITALS: BP 137/92
== END 2020-12-14 14:18 | disposition home or self-care (01) ==
LOC: SDC 08:00
PROVIDERS: ATTEND Surgery
DX: N49.9 Inflammatory disorder of unspecified male genital organ (principal)
CPT/HCPCS: 99212

== ENCOUNTER 2021-05-17 15:20 | Emergency (ER) | payer OTHER, BC ==
[~2021-05-17] VITALS: Ht 175 cm; Wt 118.0 kg
[2021-05-17] MEDS ORDERED: fentaNYL INJ 100 MCG/2 ML AMP ONE ×2 (15:29→16:05)
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
[2021-05-17 15:56] LABS: HEMATOCRIT 43 % (40-54); HEMOGLOBIN 14.5 g/dL (13.3-17.7); MEAN CORPUSCULAR HEMOGLOBIN 29 pg (25-34); MEAN CORPUSCULAR HGB CONC 34 g/dL (32-36); MEAN CORPUSCULAR VOLUME 86 fL (80-99); MEAN PLATELET VOLUME 11.5 fL (9.0-12.2); PLATELET COUNT 303 10^3/uL (130-400); WHITE BLOOD COUNT 12.4 10^3/uL (4.3-11.0)
[2021-05-17] MEDS ORDERED: IOHEXOL 350 MG/ML 100 ML (OMNIPAQUE 350) VIAL IV ONE (16:00)
[2021-05-17] MEDS ORDERED: NS 100 ML (IVPB) BAG IV ONE (16:00)
[2021-05-17] MEDS ORDERED: HOLD METFORMIN - RECEIVED CONTRAST 20 ML VIAL IV SCH (16:00)
[2021-05-17 16:04] LABS: CHLORIDE 102 MMOL/L (98-107); POTASSIUM 3.8 MMOL/L (3.6-5.0); SODIUM 138 MMOL/L (135-145)
[2021-05-17 16:05] LABS: CALCIUM 9.4 MG/DL (8.5-10.1)
[2021-05-17 16:07] LABS: GLUCOSE 123 MG/DL (70-105)
[2021-05-17 16:08] LABS: BILIRUBIN,TOTAL 1.3 MG/DL (0.1-1.0); CARBON DIOXIDE 22 MMOL/L (21-32)
[2021-05-17 16:10] LABS: ALKALINE PHOSPHATASE 51 U/L (40-136); GFR ESTIMATED 80
[2021-05-17 16:11] LABS: BUN/CREATININE RATIO 15
[2021-05-17 16:12] LABS: BILIRUBIN,DIRECT 0.4 MG/DL (0.0-0.3); BILIRUBIN,INDIRECT 0.9 MG/DL
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
[2021-05-17 16:13] LABS: ALANINE AMINOTRANSFERASE 46 U/L (0-55)
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
--- NOTE | 2021-05-17 17:25 | Diagnostic Imaging Report ---
EXAMINATION: Left tibia and fibula 2 views HISTORY: Leg pain COMPARISON: None available. FINDINGS: No fracture is seen in the left tibia and fibula. No dislocation. A few soft tissue calcifications are present. IMPRESSION: 1. No fracture in the left tibia or fibula. Dictated by: Dictated on workstation # [id number]
--- NOTE | 2021-05-17 17:25 | Diagnostic Imaging Report ---
EXAMINATION: Right femur 2 or more views. HISTORY: Leg pain. COMPARISON: None available. FINDINGS: There is a displaced and overriding fracture of the mid shaft of the right femur. There is 5 cm of overriding and one full shaft width of posterior displacement. No other fracture is seen. IMPRESSION: 1. Displaced and overriding transverse mid shaft fracture of the right femur. Dictated by: Dictated on workstation # [id number]
[2021-05-17] MEDS ORDERED: fentaNYL INJ 100 MCG/2 ML AMP IVP ONE (18:00)
[2021-05-17] MEDS ORDERED: KETAMINE SYRINGE 50 MG/5 ML SYRINGE IV ONE (18:00)
[2021-05-17 18:52] LABS: BILIRUBIN,URINE NEGATIVE (NEGATIVE); CLARITY,URINE CLEAR; COLOR,URINE YELLOW; GLUCOSE, URINE (UA) NEGATIVE (NEGATIVE); KETONES,URINE TRACE (NEGATIVE); LEUKOCYTE ESTERASE ,URINE NEGATIVE (NEGATIVE); NITRITE,URINE NEGATIVE (NEGATIVE); PH,URINE 5.5 (5-9); PROTEIN,URINE 1+ (NEGATIVE)
[2021-05-17 19:05] LABS: BACTERIA,URINE NEGATIVE /HPF
[2021-05-17] MEDS ORDERED: hydrALAZINE (APESOLINE) 20 MG/ML VIAL IV ONE (21:30)
[2021-05-17 22:14] LABS: HEMATOCRIT 41 % (40-54); MEAN CORPUSCULAR HEMOGLOBIN 29 pg (25-34); MEAN CORPUSCULAR HGB CONC 34 g/dL (32-36); MEAN CORPUSCULAR VOLUME 85 fL (80-99); MEAN PLATELET VOLUME 11.4 fL (9.0-12.2); PLATELET COUNT 288 10^3/uL (130-400); WHITE BLOOD COUNT 12.9 10^3/uL (4.3-11.0)
[2021-05-17] MEDS ORDERED: KETAMINE HCL 100 MG/ML 5 ML VIAL IV ONE (22:45)
[2021-05-17] MEDS ORDERED: fentaNYL INJ 100 MCG/2 ML AMP IVP PRN (22:45)
[2021-05-17] MEDS ORDERED: ONDANSETRON 4 MG/2 ML (SDV) Z0FRAN IVP ONE (23:15)
[2021-05-17] MEDS ORDERED: ONDANSETRON 4 MG/2 ML (SDV) Z0FRAN ONE (23:16)
[2021-05-17 23:47] VITALS: BP 140/103
== END 2021-05-17 23:49 | disposition short-term general hospital (02) ==
LOC: EDUNIT# 15:20 → ER 15:21
DX: S72.91XA Unspecified fracture of right femur, initial encounter for closed fracture (principal); S22.21XA Fracture of manubrium, initial encounter for closed fracture; S22.31XA Fracture of one rib, right side, initial encounter for closed fracture; S62.616A Displaced fracture of proximal phalanx of right little finger, initial encounter for closed fracture; S01.21XA Laceration without foreign body of nose, initial encounter; S20.219A Contusion of unspecified front wall of thorax, initial encounter; I10 Essential (primary) hypertension; V59.9XXA Occupant (driver) (passenger) of pick-up truck or van injured in unspecified traffic accident, initial encounter
CPT/HCPCS: 51702; 70450; 71045; 71260; 72125; 72170; 73130; 73552; 73590; 74177; 80048; 80076; 81000; 85027; 86850; 86900; 86901; 93005; 93041; 96374; 96375; 96376; 99285; G0480; 36415; 80320

== ENCOUNTER 2021-05-21 13:10 | Inpatient (IN) | payer OTHER, BC ==
[~2021-05-21] VITALS: Ht 177.8 cm; Wt 161.8 kg
[2021-05-21] MEDS ORDERED: SENN-234 PO (13:30)
[2021-05-21] MEDS ORDERED: HYDR-3820 PO (13:30)
[2021-05-21] MEDS ORDERED: NALO4SPR NS (13:30)
[2021-05-21] MEDS ORDERED: LOSA100T57 PO (13:30)
[2021-05-21] MEDS ORDERED: HYDR12.56 PO (13:30)
[2021-05-21] MEDS ORDERED: AMLO-251 PO (13:30)
[2021-05-21] MEDS ORDERED: LACT1CAP39 PO (13:30)
[2021-05-21] MEDS ORDERED: INSU100V SQ ×2 (13:30)
[2021-05-21] MEDS ORDERED: DOCU100C37 PO (13:30)
[2021-05-21] MEDS ORDERED: ENOX30DI4 SQ (13:30)
[2021-05-21 14:19] VITALS: BP 146/77
[2021-05-21] MEDS ORDERED: BISACODYL 10 MG SUPP (DULCOLAX) PR PRN (14:30)
[2021-05-21] MEDS ORDERED: FLEET ENEMA ADULT 1 EA BTL PR PRN (14:30)
[2021-05-21] MEDS ORDERED: LOPERAMIDE 2 MG (IMODIUM) TABLET PO PRN (14:30)
[2021-05-21] MEDS ORDERED: ONDANSETRON 4 MG (ZOFRAN) ORAL DISSOLVE TAB PO PRN (14:30)
[2021-05-21] MEDS ORDERED: LACTULOSE SYRUP 10GM/15ML (ENULOSE) 30ML UDC PO PRN (14:30)
[2021-05-21] MEDS ORDERED: ALPRAZolam 0.25 MG (XANAX) TAB PO PRN (14:30)
[2021-05-21] MEDS ORDERED: CALCIUM CARBONATE 500 MG (TUMS) TAB.CHEW PO PRN (14:30)
[2021-05-21] MEDS ORDERED: DOCUSATE SODIUM 100 MG (COLACE) CAP PO PRN (14:30)
[2021-05-21] MEDS ORDERED: diphenhydrAMINE 25 MG TAB (BENADRYL) PO PRN (14:30)
[2021-05-21] MEDS ORDERED: guaiFENesin/CODEINE (ROBITUSSIN AC) 10ML UDC PO PRN (14:30)
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
--- NOTE | 2021-05-21 15:46 | Physical Therapy Daily Note ---
PT Daily Note-Current Subjective Patient reports he is very tired and groggy. "I think I need more water." Mental Status Patient Orientation: Person, Place, Time, Situation Attachments: Knee Immobilizer Transfers SCALE: Activities may be completed with or without assistive devices. 8-Lqomjmstya-gxytesm completes the activity by him/herself with no assistance from a helper. 5-Set-up or Clean-up Assistance-helper sets up or cleans up; patient completes activity. [place] assists only prior to or following the activity. 4-Supervision or Touching Assistance-helper provides verbal cues and/or touching/steadying and/or contact guard assistance as patient completes activity. Assistance may be provided throughout the activity or intermittently. 3-Partial/Moderate Assistance-helper does LESS THAN HALF the effort. [place] lifts, holds or supports trunk or limbs, but provides less than half the effort. 2-Substantial/Maximal Assistance-helper does MORE THAN HALF the effort. [place] lifts or holds trunk or limbs and provides more than half the effort. 1-Xrpeeyjym-wrolzj does ALL the effort. Patient does none of the effort to complete the activity. Or, the assistance of 2 or more helpers is required for the patient to complete the activity. If activity was not attempted, code reason: 7-Patient Refused. 9-Not Applicable-not attempted and the patient did not perform the activity before the current illness, exacerbation or injury. 10-Not Attempted due to Environmental Limitations-(lack of equipment, weather restraints, etc.). 88-Not Attempted due to Medical Conditions or Safety Concerns. Sit to Stand (QC): 2 Chair/Bep-gs-Lfhrr Xfer(QC): 2 Toilet Transfer (QC): 2 Weight Bearing Right Lower Extremity: Right Weight Bearing/Tolerated Left Lower Extremity: Left Weight Bearing/Tolerated Left WBAT with knee immobilizer. Gait Training Does the Patient Walk?: Yes Distance: 3 Walk 10 feet (QC): 88 Gait Assistive Device: Walker Platform Wheelchair Training Does the Pt Use a Wheelchair?: Yes Wheel 50 ft with 2 turns (QC): 4 Wheel 150 ft (QC): 4 Type of Wheelchair: Manual Assessment Current Status: Fair Progress Patient tolerated treatment fair given this is his first day. Patient required max A for all observed transfers. He demonstrates significant difficulty with left LE sliding as he is unable to fully bend the knee with the immobilizer donned. Note from [facility] PT states the referring physician ordered brace to be locked out at 45 degrees, however the only brace they had went in increments from 0, 15, 30 and 60 degrees. Patients nurse contacted referring physician for clarification, which is pending. Patient performs standing balance activity with transfer training with max A and dynamic standing activity with max X 2. Patient in chair post treatment with all needs met, nursing notified, call light in hand, all needs met. PT [facility] Goals Inventory Control Analyst Goals PT [facility] Goals Time Frame: Jun 22, 2021 Roll Left & Right (QC): 6 Sit to Lying (QC): 6 Lying-Sitting on Side/Bed(QC): 6 Sit to Stand (QC): 6 Chair/Jqm-fd-Xpdxy Xfer(QC): 6 Toilet Transfer (QC): 6 Car Transfer (QC): 6 Does the Patient Walk: Yes Walk 10 feet (QC): 6 Walk 50ft with 2 Turns (QC): 6 Walk 150 ft (QC): 6 Walking 10ft on Uneven Surface: 6 1 Step (curb) (QC): 6 4 Steps (QC): 6 12 Steps (QC): 6 Picking up an Object (QC): 6 Does the Pt use WC or Scooter?: No Wheel 50 feet with 2 turns (QC: 9 Type: N/A Wheel 150 feet: 9 Type: N/A PT Plan Treatment/Plan Treatment Plan: Continue Plan of Care Treatment Plan: Bed Mobility, Concurrent Therapy, Education, Functional Activity Johanne, Functional Strength, Group Therapy, Gait, Safety, Therapeutic Exercise, Transfers Treatment Duration: Jun 22, 2021 Frequency: At least 5 of 7 days/Wk (IRF) Estimated Hrs Per Day: 1.5 hours per day Patient and/or Family Agrees t: Yes Safety Risks/Education Patient Education: Transfer Techniques, Reviewed Precautions, Safety Issues Teaching Recipient: Patient Teaching Methods: Demonstration, Discussion Response to Teaching: Verbalize Understanding, Reinforcement Needed Time/GCodes Time In: 1510 Time Out: 1600 Total Billed Treatment Time: 50 Total Billed Treatment Visit, FA x 3 HANS CAZARES PT May 21, 2021 15:46
[2021-05-21] MEDS: inSUlin ASPART (NovoLOG) 1 UNIT/0.01 ML (CHARGE PER UNIT) SC SCH ×2 (16:30→21:00)
[2021-05-21] MEDS ORDERED: FLU QUADRIvalent (3YOA+) 60 mcg/0.5 ml 2021-22(AFLURIA) IM ONE (16:45)
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
[2021-05-21] MEDS: ENOXAPARIN 60 MG/0.6 ML (LOVENOX) SYR SC SCH (17:17)
[2021-05-21] MEDS: LACTOBACILLUS ACIDOPHILUS (PROBIOTIC) CAPSULE PO SCH (17:17)
[2021-05-21] MEDS: metFORMIN 500 MG (GLUCOPHAGE) TAB PO SCH (17:17)
[2021-05-21 20:00] VITALS: BP 140/77
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
[2021-05-21] MEDS: DOCUSATE SODIUM 100 MG (COLACE) CAP PO SCH (20:52)
[2021-05-21] MEDS ORDERED: DOCUSATE SODIUM 100 MG (COLACE) CAP PO SCH (21:00)
[2021-05-21] MEDS: SENNA W/DOCUSATE (SENOKOT S) TABLET PO SCH (21:26)
[2021-05-21] MEDS: polyethylene glycoL POWDER 17 GM (MIRALAX) PACK PO SCH (21:26)
[2021-05-22] MEDS: inSUlin ASPART (NovoLOG) 1 UNIT/0.01 ML (CHARGE PER UNIT) SC SCH (06:19)
[2021-05-22] MEDS: ENOXAPARIN 60 MG/0.6 ML (LOVENOX) SYR SC SCH ×2 (06:32→16:14)
[2021-05-22 07:06] LABS: BASOPHILS % (AUTO) 1 % (0-10); EOSINOPHILS # (AUTO) 0.1 10^3/uL (0.0-0.3); EOSINOPHILS % (AUTO) 2 % (0-10); HEMATOCRIT 36 % (40-54); HEMOGLOBIN 11.7 g/dL (13.3-17.7); LYMPHOCYTES # (AUTO) 1.2 10^3/uL (1.0-4.0); LYMPHOCYTES % (AUTO) 18 % (12-44); MEAN CORPUSCULAR HEMOGLOBIN 29 pg (25-34); MEAN CORPUSCULAR HGB CONC 33 g/dL (32-36); MEAN CORPUSCULAR VOLUME 88 fL (80-99); MEAN PLATELET VOLUME 10.3 fL (9.0-12.2); MONOCYTES # (AUTO) 0.7 10^3/uL (0.0-1.0); MONOCYTES % (AUTO) 10 % (0-12); NEUTROPHILS # (AUTO) 4.6 10^3/uL (1.8-7.8); NEUTROPHILS % (AUTO) 69 % (42-75); PLATELET COUNT 253 10^3/uL (130-400); WHITE BLOOD COUNT 6.6 10^3/uL (4.3-11.0)
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
[2021-05-22 07:28] LABS: ALBUMIN 3.3 GM/DL (3.2-4.5); BILIRUBIN,TOTAL 1.5 MG/DL (0.1-1.0); CALCIUM 8.6 MG/DL (8.5-10.1); CREATININE SERUM 0.83 MG/DL (0.60-1.30); POTASSIUM 3.4 MMOL/L (3.6-5.0); TOTAL PROTEIN 6.3 GM/DL (6.4-8.2)
[2021-05-22 07:51] VITALS: BP 143/91
[2021-05-22] MEDS ORDERED: KCL 20 MEQ TAB (K-DUR) PO ONE (08:00)
[2021-05-22] MEDS: LACTOBACILLUS ACIDOPHILUS (PROBIOTIC) CAPSULE PO SCH ×2 (08:01→17:28)
[2021-05-22] MEDS: SENNA W/DOCUSATE (SENOKOT S) TABLET PO SCH ×2 (08:01→21:03)
[2021-05-22] MEDS: metFORMIN 500 MG (GLUCOPHAGE) TAB PO SCH ×2 (08:01→17:28)
[2021-05-22] MEDS: polyethylene glycoL POWDER 17 GM (MIRALAX) PACK PO SCH ×2 (08:02→21:03)
[2021-05-22] MEDS: DOCUSATE SODIUM 100 MG (COLACE) CAP PO SCH ×2 (08:02→21:02)
[2021-05-22] MEDS: LOSARTAN 100 MG (COZAAR) TABLET PO SCH (08:02)
[2021-05-22] MEDS: SENNOSIDES 8.6 MG (SENOKOT) TAB PO SCH (08:02)
[2021-05-22] MEDS ORDERED: amLODIPine 10 MG (NORVASC) TAB PO SCH (09:00)
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
--- NOTE | 2021-05-22 10:43 | Physical Therapy Daily Note ---
PT Daily Note-Current Subjective Pt laying Supine in bed upon arrival. Pt agrees to PT/OT co-treat. Pain Location: Right, Incisional Location Body Site: Knee Pain Description: Ache, Tightness Comment: Pt reports but doesn't rate. Mental Status Patient Orientation: Person, Place, Time, Situation Attachments: Other-See Comments (Knee Immobilizer Brace) Transfers SCALE: Activities may be completed with or without assistive devices. 3-Ymulesrhdo-yfhtplf completes the activity by him/herself with no assistance from a helper. 5-Set-up or Clean-up Assistance-helper sets up or cleans up; patient completes activity. [place] assists only prior to or following the activity. 4-Supervision or Touching Assistance-helper provides verbal cues and/or touching/steadying and/or contact guard assistance as patient completes activity. Assistance may be provided throughout the activity or intermittently. 3-Partial/Moderate Assistance-helper does LESS THAN HALF the effort. [place] lifts, holds or supports trunk or limbs, but provides less than half the effort. 2-Substantial/Maximal Assistance-helper does MORE THAN HALF the effort. [place] lifts or holds trunk or limbs and provides more than half the effort. 4-Wnycyacrd-migwnw does ALL the effort. Patient does none of the effort to complete the activity. Or, the assistance of 2 or more helpers is required for the patient to complete the activity. If activity was not attempted, code reason: 7-Patient Refused. 9-Not Applicable-not attempted and the patient did not perform the activity before the current illness, exacerbation or injury. 10-Not Attempted due to Environmental Limitations-(lack of equipment, weather restraints, etc.). 88-Not Attempted due to Medical Conditions or Safety Concerns. Lying to Sitting/Side of Bed(Q: 4 Sit to Stand (QC): 2 Toilet Transfer (QC): 2 Weight Bearing Right Lower Extremity: Right Weight Bearing/Tolerated Left Lower Extremity: Left Weight Bearing/Tolerated Left WBAT with knee immobilizer. Wheelchair Training Does the Pt Use a Wheelchair?: Yes Wheel 50 ft with 2 turns (QC): 4 Wheel 150 ft (QC): 4 Type of Wheelchair: Manual Pt needs assistance due to NWB on R UE. Treatments Skill of two clinicians that could not otherwise be completed by a rehabilitation program coordinator due to coordination of UE & LE lily. during transfers, endurance and WB status of both UE & LE on R side. TF from Supine to EOB at Min A then took short RB for dizziness. Pt transfers to standing using platform FWW at Max A and transfers to [facility]. Pt is propelled to large bathroom to shower. Pt transfers to BSC to shower at Max A. After shower, pt transfers back to [facility]. Pt propels self in hallway only needing occasional assistance for turning lily. through tight spaces. Pt transfers to EOB and changes back into hospital gown and transfers to Supine in bed. All needs met, call light in hand. Assessment Current Status: Fair Progress Pt fatigues easily and needs frequent extended RB. Pt needs encouragement at times to continue to push self. PT Technical Project Manager Goals Longterm Goals PT Longterm Goals Time Frame: Jun 22, 2021 Roll Left & Right (QC): 6 Sit to Lying (QC): 6 Lying-Sitting on Side/Bed(QC): 6 Sit to Stand (QC): 6 Chair/Dwc-jr-Fthrs Xfer(QC): 6 Toilet Transfer (QC): 6 Car Transfer (QC): 6 Does the Patient Walk: Yes Walk 10 feet (QC): 6 Walk 50ft with 2 Turns (QC): 6 Walk 150 ft (QC): 6 Walking 10ft on Uneven Surface: 6 1 Step (curb) (QC): 6 4 Steps (QC): 6 12 Steps (QC): 6 Picking up an Object (QC): 6 Does the Pt use WC or Scooter?: No Wheel 50 feet with 2 turns (QC: 9 Type: N/A Wheel 150 feet: 9 Type: N/A PT Plan Problem List Problem List: Activity Tolerance, Functional Strength, Transfer Treatment/Plan Treatment Plan: Continue Plan of Care Treatment Plan: Bed Mobility, Concurrent Therapy, Education, Functional Activity Johanne, Functional Strength, Group Therapy, Gait, Safety, Therapeutic Exercise, Transfers Treatment Duration: Jun 22, 2021 Frequency: At least 5 of 7 days/Wk (IRF) Estimated Hrs Per Day: 1.5 hours per day Patient and/or Family Agrees t: Yes Safety Risks/Education Patient Education: Transfer Techniques, Correct Positioning, W/C Management Teaching Recipient: Patient Teaching Methods: Discussion Response to Teaching: Verbalize Understanding Time/GCodes Time In: 1000 Time Out: 1130 Total Billed Treatment Time: 90 Total Billed Treatment Co-treat for 90m ([id number]) 1, FA x6 (90m) MURRAY LICONA DIRECTOR WEB May 22, 2021 10:43
--- NOTE | 2021-05-22 11:52 | Occupational Ther Daily Note ---
OT Current Status-Daily Note Subjective Pt alert, lying in bed. Pt agrees to therapy. Pt c/o pain with movement. Mental Status/Objective Patient Orientation: Person, Place, Time, Situation ADL-Treatment Co-treat with PT ([id number]), skills of 2 clinicians required for skilled instruction and treatment to decrease fall risk, increase transfer/mobility, decrease pain and increase overall strength. PT focusing on transfers, sit to stand, bed mobility while OT focusing on functional transfers, ADLs and B UE placement during transfers. Pt is max A x2 for sit to stand. Min A x2 for SPT using platform walker. Assisted x2 for pt to pull to stand with grabbars to switch out w/c<-->BSC. Shower using BSC, pt able to bathe upper body by self after set up and assist to cleanse lower body without standing. Set up for upper body dressing. Assist x3 for lower body dressing, pt able to thread feet into shorts then assist x3 to stand and hike pants over hips. Per clinical judgment, pt able to complete oral care (in sitting) and eating independently. Toileting assist x3, per clinical judgment. Max A with footwear. Max A x3 for EOB to supine. After session, pt lying in bed with call light/phone in reach. All needs met in room. Therapy Code Descriptions/Definitions Functional [place] Measure: 0=Not Assessed/NA 4=Minimal Assistance 1=Total Assistance 5=Supervision or Setup 2=Maximal Assistance 6=Modified [place] 3=Moderate Assistance 7=Complete IndependenceSCALE: Activities may be completed with or without assistive devices. 0-Vnuqnkawhl-scuhmpo completes the activity by him/herself with no assistance from a helper. 5-Set-up or Clean-up Assistance-helper sets up or cleans up; patient completes activity. [place] assists only prior to or following the activity. 4-Supervision or Touching Assistance-helper provides verbal cues and/or touching/steadying and/or contact guard assistance as patient completes activity. Assistance may be provided throughout the activity or intermittently. 3-Partial/Moderate Assistance-helper does LESS THAN HALF the effort. [place] lifts, holds or supports trunk or limbs, but provides less than half the effort. 2-Substantial/Maximal Assistance-helper does MORE THAN HALF the effort. [place] lifts or holds trunk or limbs and provides more than half the effort. 5-Laklmwkas-mjjstd does ALL the effort. Patient does none of the effort to complete the activity. Or, the assistance of 2 or more helpers is required for the patient to complete the activity. If activity was not attempted, code reason: 7-Patient Refused. 9-Not Applicable-not attempted and the patient did not perform the activity before the current illness, exacerbation or injury. 10-Not Attempted due to Environmental Limitations-(lack of equipment, weather restraints, etc.). 88-Not Attempted due to Medical Conditions or Safety Concerns. Eating (QC): 6 Oral Hygiene (QC): 6 Bathing Location: L Arm, R Arm, L Upper Leg, R Upper Leg, Chest, Abdomen, Perineal Area Shower/Bathe Self (QC): 3 (Sitting on BSC) Upper Body Dressing (QC): 5 Lower Body Dressing (QC): 1 On/Off Footwear: 2 Toileting Hygiene (QC): 1 OT Short Term Goals Short Term Goals Time Frame: Jun 05, 2021 Oral hygiene: 5 Toileting hygiene: 4 Shower/bathe self: 4 Upper body dressin Lower body dressin Putting on/taking off footwear: 4 OT Senior Care Goals Senior Care Goals Time Frame: Jun 21, 2021 Eating (QC): 6 Oral Hygiene (QC): 6 Toileting Hygiene (QC): 6 Shower/Bathe Self (QC): 6 Upper Body Dressing (QC): 6 Lower Body Dressing (QC): 6 On/Off Footwear (QC): 6 Additional Goals: 1-Demonstrate ADL Tasks, 2-Verbalize Understanding, 3- ImproveStrength/Johanne 1=Demonstrate adherence to instructed precautions during ADL tasks. 2=Patient will verbalize/demonstrate understanding of assistive devices/modifications for ADL. 3=Patient will improve strength/tolerance for activity to enable patient to perform ADL's. OT Education/Plan Problem List/Assessment Assessment: Decreased Activ Tolerance, Decreased UE Strength, Dependent Transfers, Impaired Bed Mobility, Impaired Funct Balance, Impaired Self-Care Skills, Restricted Funct UE ROM Discharge Recommendations Plan/Recommendations: Continue POC Treatment Plan/Plan of Care Patient would benefit from OT for education, treatment and training to promote independence in ADL's, mobility, safety and/or upper extremity function for ADL's. Plan of Care: ADL Retraining, Functional Mobility, Group Exercise/Act as Ind, UE Funct Exercise/Act Treatment Duration: Jun 21, 2021 Frequency: At least 5 of 7 days/Wk (IRF) Estimated Hrs Per Day: 1.5 hours per day Agreement: Yes Rehab Potential: Good Time/GCodes Start Time: 10:00 Stop Time: 11:30 Total Time Billed (hr/min): 90 Billed Treatment Time 1 visit-ADL 6 (90 min) co-treat with PT ([id number]) MARÍA GIRARD May 22, 2021 11:52
[2021-05-22 20:20] VITALS: BP 121/73
[2021-05-22] MEDS: amLODIPine 10 MG (NORVASC) TAB PO SCH (21:02)
[2021-05-23] MEDS: MELATONIN 3 MG TABLET PO PRN (01:05)
[2021-05-23] MEDS: ENOXAPARIN 60 MG/0.6 ML (LOVENOX) SYR SC SCH ×2 (05:20→17:13)
[2021-05-23 07:41] VITALS: BP 129/76
[2021-05-23] MEDS: LACTOBACILLUS ACIDOPHILUS (PROBIOTIC) CAPSULE PO SCH ×2 (08:03→17:13)
[2021-05-23] MEDS: SENNA W/DOCUSATE (SENOKOT S) TABLET PO SCH ×2 (08:03→20:21)
[2021-05-23] MEDS: LOSARTAN 100 MG (COZAAR) TABLET PO SCH (08:04)
[2021-05-23] MEDS: polyethylene glycoL POWDER 17 GM (MIRALAX) PACK PO SCH ×2 (08:04→20:21)
[2021-05-23] MEDS: DOCUSATE SODIUM 100 MG (COLACE) CAP PO SCH ×2 (08:04→20:21)
[2021-05-23] MEDS: metFORMIN 500 MG (GLUCOPHAGE) TAB PO SCH ×2 (08:04→17:13)
[2021-05-23] MEDS: SENNOSIDES 8.6 MG (SENOKOT) TAB PO SCH (08:04)
--- NOTE | 2021-05-23 10:25 | Occupational Ther Daily Note ---
OT Current Status-Daily Note Subjective Pt supine in bed, alert. No c/o pain. Pt agrees to therapy. Mental Status/Objective Patient Orientation: Person, Place, Time, Situation Attachments: Other-See Comments (R finger splint, knee brace) ADL-Treatment PT/OT [place] with pt ([id number])). 2 clinicians required for skilled treatment to decrease fall risk increase mobility, increase B UE/LE strength and coordinate B UE/LE. OT focused on L UE placement and ADLs. PT focused on B LE placement, transfers, and mobility. Pt received skilled instruction on use of sock aide while supine in bed. Pt demonstrated good return with set up. Pt required Min A x2 supine->sit EOB with increased time due to pain. Pt given VC on hand placement during bed mobility. Pt requested toileting. Pt Max A x3 with increased time due to pain sit->stand using FWW for stability. See PT notes on transfers and mobility. Assist to thread pants over feet. Toileting max A x2 for sit <--> stand, assist to cleanse buttocks and hike pants over hips. Increased time to complete ambulation from BSC to recliner using platform FWW with min A x2 due to decreased mobility, strength and pain. Therapy Code Descriptions/Definitions Functional [place] Measure: 0=Not Assessed/NA 4=Minimal Assistance 1=Total Assistance 5=Supervision or Setup 2=Maximal Assistance 6=Modified [place] 3=Moderate Assistance 7=Complete IndependenceSCALE: Activities may be completed with or without assistive devices. 9-Dsdrzyafkw-ssklipg completes the activity by him/herself with no assistance from a helper. 5-Set-up or Clean-up Assistance-helper sets up or cleans up; patient completes activity. [place] assists only prior to or following the activity. 4-Supervision or Touching Assistance-helper provides verbal cues and/or touching/steadying and/or contact guard assistance as patient completes activity. Assistance may be provided throughout the activity or intermittently. 3-Partial/Moderate Assistance-helper does LESS THAN HALF the effort. [place] lifts, holds or supports trunk or limbs, but provides less than half the effort. 2-Substantial/Maximal Assistance-helper does MORE THAN HALF the effort. [place] lifts or holds trunk or limbs and provides more than half the effort. 6-Cyaqyoahv-cfevpt does ALL the effort. Patient does none of the effort to complete the activity. Or, the assistance of 2 or more helpers is required for the patient to complete the activity. If activity was not attempted, code reason: 7-Patient Refused. 9-Not Applicable-not attempted and the patient did not perform the activity before the current illness, exacerbation or injury. 10-Not Attempted due to Environmental Limitations-(lack of equipment, weather restraints, etc.). 88-Not Attempted due to Medical Conditions or Safety Concerns. Lower Body Dressing (QC): 1 On/Off Footwear: 2 Toileting Hygiene (QC): 1 Toilet Transfer (QC): 1 Other Treatment Pt engaged in therapeutic exercise to strengthen B UE for improved ADL performance. Pt engaged in 15 reps x2 sets of elbow flexion/extensions against gravity and 15 reps of chest presses against gravity while seated in recliner. Pt demonstrated good return with skilled instruction for correct technique. After session, pt seated in recliner with PT in room. Call light/phone were within reach and needs were met in room. Education OT Patient Education: Exercise program, Transfer techniques, Use of adapted equipment Teaching Recipient: Patient Teaching Methods: Demonstration, Discussion Response to Teaching: Verbalize Understanding, Return Demonstration, Reinforcement Needed OT Short Term Goals Short Term Goals Time Frame: Jun 05, 2021 Oral hygiene: 5 Toileting hygiene: 4 Shower/bathe self: 4 Upper body dressin Lower body dressin Putting on/taking off footwear: 4 OT Intermediate Goals Special Education Teacher Goals Time Frame: Jun 21, 2021 Eating (QC): 6 Oral Hygiene (QC): 6 Toileting Hygiene (QC): 6 Shower/Bathe Self (QC): 6 Upper Body Dressing (QC): 6 Lower Body Dressing (QC): 6 On/Off Footwear (QC): 6 Additional Goals: 1-Demonstrate ADL Tasks, 2-Verbalize Understanding, 3- ImproveStrength/Johanne 1=Demonstrate adherence to instructed precautions during ADL tasks. 2=Patient will verbalize/demonstrate understanding of assistive devices/modifications for ADL. 3=Patient will improve strength/tolerance for activity to enable patient to perform ADL's. OT Education/Plan Problem List/Assessment Assessment: Decreased Activ Tolerance, Decreased UE Strength, Impaired Bed Mobility, Impaired Funct Balance, Impaired Self-Care Skills Discharge Recommendations Plan/Recommendations: Continue POC Treatment Plan/Plan of Care Patient would benefit from OT for education, treatment and training to promote independence in ADL's, mobility, safety and/or upper extremity function for ADL's. Plan of Care: ADL Retraining, Functional Mobility, Group Exercise/Act as Ind, UE Funct Exercise/Act Treatment Duration: Jun 21, 2021 Frequency: At least 5 of 7 days/Wk (IRF) Estimated Hrs Per Day: 1.5 hours per day Agreement: Yes Rehab Potential: Good Time/GCodes Start Time: 09:00 Stop Time: 10:00 Total Time Billed (hr/min): 60 Billed Treatment Time 1 Visit- ADL 3 (45 min) EX (15 min) [place] with PT ([id number]) MARÍA GIRARD May 23, 2021 10:25
--- NOTE | 2021-05-23 11:52 | Occupational Ther Daily Note ---
OT Current Status-Daily Note Subjective Pt sitting in recliner with feet raised, alert. No pain c/o. Pt agrees to therapy. Mental Status/Objective Patient Orientation: Person, Place, Time, Situation (knee brace, R finger splint) Attachments: Other-See Comments (knee brace, R finger splint) ADL-Treatment Therapy Code Descriptions/Definitions Functional [place] Measure: 0=Not Assessed/NA 4=Minimal Assistance 1=Total Assistance 5=Supervision or Setup 2=Maximal Assistance 6=Modified [place] 3=Moderate Assistance 7=Complete IndependenceSCALE: Activities may be completed with or without assistive devices. 5-Xpqmyvfvkm-kkmumdl completes the activity by him/herself with no assistance from a helper. 5-Set-up or Clean-up Assistance-helper sets up or cleans up; patient completes activity. [place] assists only prior to or following the activity. 4-Supervision or Touching Assistance-helper provides verbal cues and/or touching/steadying and/or contact guard assistance as patient completes activity. Assistance may be provided throughout the activity or intermittently. 3-Partial/Moderate Assistance-helper does LESS THAN HALF the effort. [place] lifts, holds or supports trunk or limbs, but provides less than half the effort. 2-Substantial/Maximal Assistance-helper does MORE THAN HALF the effort. [place] lifts or holds trunk or limbs and provides more than half the effort. 4-Qyccprtau-unmtec does ALL the effort. Patient does none of the effort to complete the activity. Or, the assistance of 2 or more helpers is required for the patient to complete the activity. If activity was not attempted, code reason: 7-Patient Refused. 9-Not Applicable-not attempted and the patient did not perform the activity before the current illness, exacerbation or injury. 10-Not Attempted due to Environmental Limitations-(lack of equipment, weather restraints, etc.). 88-Not Attempted due to Medical Conditions or Safety Concerns. Other Treatment Pt engaged in therapeutic exercise to strengthen B UE for improved ADL performance. Pt engaged in 15 reps x2 sets of B elbow flexion/extensions against gravity, 15 reps x2 sets of chest presses against gravity, 15 reps x2 sets B internal/external rotation against gravity, and 15 reps x 2 sets of B bicep curls against gravity. while seated in recliner. Pt demonstrated good return with skilled instruction for correct technique. Pt given skilled instruction on AE of material chaser for use with ADLs. Pt demonstrated good return with skilled instruction while seated in recliner. After session, pt seated in recliner with feet raised. Call light/phone were within reach and needs were met in room. Education OT Patient Education: Exercise program, Use of adapted equipment Teaching Recipient: Patient Teaching Methods: Demonstration, Discussion Response to Teaching: Verbalize Understanding, Return Demonstration OT Short Term Goals Short Term Goals Time Frame: Jun 05, 2021 Oral hygiene: 5 Toileting hygiene: 4 Shower/bathe self: 4 Upper body dressin Lower body dressin Putting on/taking off footwear: 4 OT Intermediate Goals Intermediate Goals Time Frame: Jun 21, 2021 Eating (QC): 6 Oral Hygiene (QC): 6 Toileting Hygiene (QC): 6 Shower/Bathe Self (QC): 6 Upper Body Dressing (QC): 6 Lower Body Dressing (QC): 6 On/Off Footwear (QC): 6 Additional Goals: 1-Demonstrate ADL Tasks, 2-Verbalize Understanding, 3- ImproveStrength/Johanne 1=Demonstrate adherence to instructed precautions during ADL tasks. 2=Patient will verbalize/demonstrate understanding of assistive devices/modifications for ADL. 3=Patient will improve strength/tolerance for activity to enable patient to perform ADL's. OT Education/Plan Problem List/Assessment Assessment: Decreased UE Strength, Impaired Coordination, Impaired Funct Balance Discharge Recommendations Plan/Recommendations: Continue POC Treatment Plan/Plan of Care Patient would benefit from OT for education, treatment and training to promote independence in ADL's, mobility, safety and/or upper extremity function for ADL's. Plan of Care: ADL Retraining, Functional Mobility, Group Exercise/Act as Ind, UE Funct Exercise/Act Treatment Duration: Jun 21, 2021 Frequency: At least 5 of 7 days/Wk (IRF) Estimated Hrs Per Day: 1.5 hours per day Agreement: Yes Rehab Potential: Good Time/GCodes Start Time: 11:15 Stop Time: 11:45 Total Time Billed (hr/min): 30 Billed Treatment Time 1 Visit- FA (15 min) EX (15 min) MARÍA GIRARD May 23, 2021 11:52
--- NOTE | 2021-05-23 12:02 | Physical Therapy Daily Note ---
PT Daily Note-Current Subjective Pt laying Supine in bed upon arrival. Pt agrees to PT/OT co-treat. Mental Status Patient Orientation: Person, Place, Time, Situation Attachments: Other-See Comments (L knee immobilizer) Transfers SCALE: Activities may be completed with or without assistive devices. 5-Kxvcwmevce-wqhseza completes the activity by him/herself with no assistance from a helper. 5-Set-up or Clean-up Assistance-helper sets up or cleans up; patient completes activity. [place] assists only prior to or following the activity. 4-Supervision or Touching Assistance-helper provides verbal cues and/or touching/steadying and/or contact guard assistance as patient completes activity. Assistance may be provided throughout the activity or intermittently. 3-Partial/Moderate Assistance-helper does LESS THAN HALF the effort. [place] lifts, holds or supports trunk or limbs, but provides less than half the effort. 2-Substantial/Maximal Assistance-helper does MORE THAN HALF the effort. [place] lifts or holds trunk or limbs and provides more than half the effort. 0-Ozhwewrqe-rdhgeh does ALL the effort. Patient does none of the effort to c omplete the activity. Or, the assistance of 2 or more helpers is required for the patient to complete the activity. If activity was not attempted, code reason: 7-Patient Refused. 9-Not Applicable-not attempted and the patient did not perform the activity before the current illness, exacerbation or injury. 10-Not Attempted due to Environmental Limitations-(lack of equipment, weather restraints, etc.). 88-Not Attempted due to Medical Conditions or Safety Concerns. Lying to Sitting/Side of Bed(Q: 3 Sit to Stand (QC): 1 Chair/Yax-lk-Msqvw Xfer(QC): 1 Toilet Transfer (QC): 3 Weight Bearing Right Lower Extremity: Right Weight Bearing/Tolerated Left Lower Extremity: Left Weight Bearing/Tolerated Left WBAT with knee immobilizer. Gait Training Does the Patient Walk?: Yes Distance: 5' Gait Persons Needed: 2 Gait Assistive Device: Walker Platform Exercises Seated Therapy Exercises: Ankle pumps, Long arc quads, Hip flexion, Glut set Seated Reps: 15 Treatments PT/OT [place] with pt ([id number])). 2 clinicians required for skilled treatment to decrease fall risk increase mobility, increase B UE/LE strength and coordinate B UE/LE. OT focused on L UE placement and ADLs. PT focused on B LE placement, transfers, and mobility. Pt received skilled instruction on use of sock aide while supine in bed. Pt demonstrated good return with set up. Pt required Min A x2 supine->sit EOB with increased time due to pain. Pt given VC on hand placement during bed mobility. Pt requested toileting. Pt Max A x3 with increased time due to pain sit->stand using FWW for stability. Assist to thread pants over feet. Toileting max A x2 for sit <--> stand, assist to cleanse buttocks and hike pants over hips. Increased time to complete ambulation from BSC to recliner using platform FWW with min A x2 due to decreased mobility, strength and pain. OT completes UE Ex then departs and PT continues w/LE Ex. Pt resting in recliner with feet up at end of tx. All needs met. Assessment Current Status: Fair Progress Pt requires Max A x3 for sit to stands at this time, decreased need for assistance once up. PT Shelter Goals Signal Operator Technical Goals PT Shelter Goals Time Frame: Jun 22, 2021 Roll Left & Right (QC): 6 Sit to Lying (QC): 6 Lying-Sitting on Side/Bed(QC): 6 Sit to Stand (QC): 6 Chair/Bkf-mc-Ccerm Xfer(QC): 6 Toilet Transfer (QC): 6 Car Transfer (QC): 6 Does the Patient Walk: Yes Walk 10 feet (QC): 6 Walk 50ft with 2 Turns (QC): 6 Walk 150 ft (QC): 6 Walking 10ft on Uneven Surface: 6 1 Step (curb) (QC): 6 4 Steps (QC): 6 12 Steps (QC): 6 Picking up an Object (QC): 6 Does the Pt use WC or Scooter?: No Wheel 50 feet with 2 turns (QC: 9 Type: N/A Wheel 150 feet: 9 Type: N/A PT Plan Problem List Problem List: Activity Tolerance, Functional Strength, Safety, Gait, Transfer Treatment/Plan Treatment Plan: Continue Plan of Care Treatment Plan: Bed Mobility, Concurrent Therapy, Education, Functional Activity Johanne, Functional Strength, Group Therapy, Gait, Safety, Therapeutic Exercise, Transfers Treatment Duration: Jun 22, 2021 Frequency: At least 5 of 7 days/Wk (IRF) Estimated Hrs Per Day: 1.5 hours per day Patient and/or Family Agrees t: Yes Safety Risks/Education Patient Education: Transfer Techniques, Correct Positioning, Safety Issues Teaching Recipient: Patient Teaching Methods: Demonstration, Discussion Response to Teaching: Verbalize Understanding, Return Demonstration Time/GCodes Time In: 900 Time Out: 1030 Total Billed Treatment Time: 90 Total Billed Treatment Co-treat w/OT for 60m (900-1000) 1, FA x3 (45m), GT (15m) & EX x2 (30m) MURRAY LICONA AIR POLLUTION CONTROL ENGINEER May 23, 2021 12:02
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
[2021-05-23 20:00] VITALS: BP 127/72
[2021-05-23] MEDS: amLODIPine 10 MG (NORVASC) TAB PO SCH (20:22)
[2021-05-24] MEDS: ENOXAPARIN 60 MG/0.6 ML (LOVENOX) SYR SC SCH ×2 (04:33→17:54)
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
[2021-05-24 07:55] VITALS: BP 127/72
[2021-05-24] MEDS: LOSARTAN 100 MG (COZAAR) TABLET PO SCH (08:05)
[2021-05-24] MEDS: LACTOBACILLUS ACIDOPHILUS (PROBIOTIC) CAPSULE PO SCH ×2 (08:05→17:54)
[2021-05-24] MEDS: SENNA W/DOCUSATE (SENOKOT S) TABLET PO SCH ×2 (08:05→22:02)
[2021-05-24] MEDS: metFORMIN 500 MG (GLUCOPHAGE) TAB PO SCH ×2 (08:05→17:54)
[2021-05-24] MEDS: DOCUSATE SODIUM 100 MG (COLACE) CAP PO SCH ×2 (08:05→22:03)
[2021-05-24] MEDS: SENNOSIDES 8.6 MG (SENOKOT) TAB PO SCH (08:05)
[2021-05-24] MEDS: ACETAMINOPHEN 325 MG TABLET PO PRN (08:09)
[2021-05-24] MEDS: polyethylene glycoL POWDER 17 GM (MIRALAX) PACK PO SCH ×2 (09:55→22:00)
--- NOTE | 2021-05-24 10:58 | Physical Therapy Daily Note ---
PT Daily Note-Current Subjective Patient in bed pre tx, agrees to PT, says he doesn't have much pain. Will be co-treating with OT due to poor patient strength, endurance, balance, severe pain with activity, coordinate UE and LE with activity, safety and reduce risk of falls. Appearance Patient in recliner post tx, will continue for a bit with OT. Mental Status Patient Orientation: Person, Place, Situation Transfers SCALE: Activities may be completed with or without assistive devices. 6-Cykajslbvk-zdiebgm completes the activity by him/herself with no assistance from a helper. 5-Set-up or Clean-up Assistance-helper sets up or cleans up; patient completes activity. [place] assists only prior to or following the activity. 4-Supervision or Touching Assistance-helper provides verbal cues and/or touching/steadying and/or contact guard assistance as patient completes activity. Assistance may be provided throughout the activity or intermittently. 3-Partial/Moderate Assistance-helper does LESS THAN HALF the effort. [place] lifts, holds or supports trunk or limbs, but provides less than half the effort. 2-Substantial/Maximal Assistance-helper does MORE THAN HALF the effort. [place] lifts or holds trunk or limbs and provides more than half the effort. 3-Tlxkejohg-pnpmvc does ALL the effort. Patient does none of the effort to complete the activity. Or, the assistance of 2 or more helpers is required for the patient to complete the activity. If activity was not attempted, code reason: 7-Patient Refused. 9-Not Applicable-not attempted and the patient did not perform the activity before the current illness, exacerbation or injury. 10-Not Attempted due to Environmental Limitations-(lack of equipment, weather restraints, etc.). 88-Not Attempted due to Medical Conditions or Safety Concerns. Lying to Sitting/Side of Bed(Q: 3 Sit to Stand (QC): 1 Chair/Mqt-qz-Jpzgm Xfer(QC): 4 min to mod assist for supine to sit, assist of 2-3 for sit to stand, once standi ng he can perform a transfer with CGA but extremely slowly and scoots feet on the floor. Patient transfers to from bed and wheels to shower room, stands again to get onto shower chair, showers, dries off, dresses, stands again to get into , propels to room and stands again and transfers to recliner. Weight Bearing Right Lower Extremity: Right Weight Bearing/Tolerated Left Lower Extremity: Left Weight Bearing/Tolerated Left WBAT with knee immobilizer. Wheelchair Training Does the Pt Use a Wheelchair?: Yes Wheel 50 ft with 2 turns (QC): 4 Wheel 150 ft (QC): 4 Type of Wheelchair: Manual 150'x2, very slow Treatments PT performed bed mobility, standing, transfers, positioning and safety during dressing and shower, OT performed dressing and shower, assisted with standing Assessment Current Status: Poor Progress patient needs a lot of assist for sit to stand PT Decorating And Assembly Supervisor Goals Snf Goals PT Decorating And Assembly Supervisor Goals Time Frame: Jun 22, 2021 Roll Left & Right (QC): 6 Sit to Lying (QC): 6 Lying-Sitting on Side/Bed(QC): 6 Sit to Stand (QC): 6 Chair/Sct-gz-Ibgpg Xfer(QC): 6 Toilet Transfer (QC): 6 Car Transfer (QC): 6 Does the Patient Walk: Yes Walk 10 feet (QC): 6 Walk 50ft with 2 Turns (QC): 6 Walk 150 ft (QC): 6 Walking 10ft on Uneven Surface: 6 1 Step (curb) (QC): 6 4 Steps (QC): 6 12 Steps (QC): 6 Picking up an Object (QC): 6 Does the Pt use WC or Scooter?: No Wheel 50 feet with 2 turns (QC: 9 Type: N/A Wheel 150 feet: 9 Type: N/A PT Plan Problem List Problem List: Activity Tolerance, Functional Strength, Safety, Balance, Gait, Transfer, Bed Mobility, ROM Treatment/Plan Treatment Plan: Continue Plan of Care Treatment Plan: Bed Mobility, Concurrent Therapy, Education, Functional Activity Johanne, Functional Strength, Group Therapy, Gait, Safety, Therapeutic Exercise, Transfers Treatment Duration: Jun 22, 2021 Frequency: At least 5 of 7 days/Wk (IRF) Estimated Hrs Per Day: 1.5 hours per day Patient and/or Family Agrees t: Yes Safety Risks/Education Patient Education: Transfer Techniques, Correct Positioning, W/C Management, Safety Issues Teaching Recipient: Patient Teaching Methods: Demonstration, Discussion Response to Teaching: Reinforcement Needed Time/GCodes Time In: 1000 Time Out: 1100 Total Billed Treatment Time: 60 Total Billed Treatment 1 visit FA 60' co-treated for 60' RACHEL BARBOZA PT May 24, 2021 10:58
--- NOTE | 2021-05-24 11:47 | Occupational Ther Daily Note ---
OT Current Status-Daily Note Subjective Pt supine in bed, alert. No c/o pain. Pt agrees to therapy. Mental Status/Objective Patient Orientation: Person, Place, Time, Situation Attachments: Other-See Comments (knee brace, R finger splint) ADL-Treatment Co-treat with PT ([id number]), skills of 2 clinicians required for skilled instruction and treatment to decrease fall risk, increase transfer/mobility, decrease pain and increase overall strength. PT focusing on transfers, sit to stand, bed mobility while OT focusing on functional transfers, ADLs and B UE placement during transfers. Pt is max A x2 for sit to stand. Min A x2 for SPT using platform walker. Assisted x2 for pt to pull to stand with grabbars to switch out w/c<-->BSC. Shower using BSC, pt able to bathe upper body by self after set up and LHS to cleanse lower body without standing. Set up for UB dressing of hospital gown. Pt engaged in oral care while seated in recliner of room with supplies gathered. Pt able to don/doff socks using nuclear pharmacist and sock aide while seated in recliner with VC, SBA. Therapy Code Descriptions/Definitions Functional [place] Measure: 0=Not Assessed/NA 4=Minimal Assistance 1=Total Assistance 5=Supervision or Setup 2=Maximal Assistance 6=Modified [place] 3=Moderate Assistance 7=Complete IndependenceSCALE: Activities may be completed with or without assistive devices. 9-Fijnubrbdj-kmpsiwl completes the activity by him/herself with no assistance from a helper. 5-Set-up or Clean-up Assistance-helper sets up or cleans up; patient completes activity. [place] assists only prior to or following the activity. 4-Supervision or Touching Assistance-helper provides verbal cues and/or touching/steadying and/or contact guard assistance as patient completes activity. Assistance may be provided throughout the activity or intermittently. 3-Partial/Moderate Assistance-helper does LESS THAN HALF the effort. [place] lifts, holds or supports trunk or limbs, but provides less than half the effort. 2-Substantial/Maximal Assistance-helper does MORE THAN HALF the effort. [place] lifts or holds trunk or limbs and provides more than half the effort. 0-Ggedbtwgm-jgygeb does ALL the effort. Patient does none of the effort to complete the activity. Or, the assistance of 2 or more helpers is required for the patient to complete the activity. If activity was not attempted, code reason: 7-Patient Refused. 9-Not Applicable-not attempted and the patient did not perform the activity before the current illness, exacerbation or injury. 10-Not Attempted due to Environmental Limitations-(lack of equipment, weather restraints, etc.). 88-Not Attempted due to Medical Conditions or Safety Concerns. Oral Hygiene (QC): 5 (Pt able to complete with supplies gathered while seated in recliner.) Bathing Location: L Arm, R Arm, L Upper Leg, R Upper Leg, L Lower Leg (including foot), R Lower Leg (including foot), Chest, Abdomen, Buttocks, Perineal Area Shower/Bathe Self (QC): 5 (Pt can complete with set up using LHS while seated on [facility]. ) Other Treatment Pt engaged in therapeutic exercise to strengthen B UE for ADL tasks. Pt engaged in B UE resistive exercise using green (med) theraband to complete 10 reps x2 B bicep curls and B tricep extensions, 15 reps of B horizontal shoulder abductions, 15 reps x 2 sets internal/external rotation, 5 reps B shoulder abductions. After session, pt sitting in recliner with legs reclined and call light/phone within reach. All needs met in room. Education OT Patient Education: Exercise program, Use of adapted equipment Teaching Recipient: Patient Teaching Methods: Demonstration, Handout, Discussion Response to Teaching: Verbalize Understanding, Return Demonstration, Reinforcement Needed OT Short Term Goals Short Term Goals Time Frame: Jun 05, 2021 Oral hygiene: 5 Toileting hygiene: 4 Shower/bathe self: 4 Upper body dressin Lower body dressin Putting on/taking off footwear: 4 OT Snf Goals Snf Goals Time Frame: Jun 21, 2021 Eating (QC): 6 Oral Hygiene (QC): 6 Toileting Hygiene (QC): 6 Shower/Bathe Self (QC): 6 Upper Body Dressing (QC): 6 Lower Body Dressing (QC): 6 On/Off Footwear (QC): 6 Additional Goals: 1-Demonstrate ADL Tasks, 2-Verbalize Understanding, 3- ImproveStrength/Johanne 1=Demonstrate adherence to instructed precautions during ADL tasks. 2=Patient will verbalize/demonstrate understanding of assistive devices/modifications for ADL. 3=Patient will improve strength/tolerance for activity to enable patient to perform ADL's. OT Education/Plan Problem List/Assessment Assessment: Decreased Activ Tolerance, Decreased UE Strength, Dependent Transfers, Impaired Bed Mobility, Impaired Funct Balance, Impaired Self-Care Skills, Restricted Funct UE ROM Discharge Recommendations Plan/Recommendations: Continue POC Treatment Plan/Plan of Care Patient would benefit from OT for education, treatment and training to promote independence in ADL's, mobility, safety and/or upper extremity function for ADL's. Plan of Care: ADL Retraining, Functional Mobility, Group Exercise/Act as Ind, UE Funct Exercise/Act Treatment Duration: Jun 21, 2021 Frequency: At least 5 of 7 days/Wk (IRF) Estimated Hrs Per Day: 1.5 hours per day Agreement: Yes Rehab Potential: Good Time/GCodes Start Time: 10:00 Stop Time: 11:30 Total Time Billed (hr/min): 90 Billed Treatment Time 1 Visit- ADL 5 (75 min) EX (15 min) [place] with PT ([id number]) Individual ([id number]) MARÍA GIRARD May 24, 2021 11:47
--- NOTE | 2021-05-24 14:48 | Physical Therapy Daily Note ---
PT Daily Note-Current Subjective Patient in recliner pre tx, agrees to PT, unrated pain in rib area on the left side. Appearance Patient in recliner post tx with nurse call, phone, tray, all needs met. Mental Status Patient Orientation: Person, Place, Situation Transfers SCALE: Activities may be completed with or without assistive devices. 3-Suvpszgbwm-ybbdnkt completes the activity by him/herself with no assistance from a helper. 5-Set-up or Clean-up Assistance-helper sets up or cleans up; patient completes activity. [place] assists only prior to or following the activity. 4-Supervision or Touching Assistance-helper provides verbal cues and/or touching/steadying and/or contact guard assistance as patient completes activity. Assistance may be provided throughout the activity or intermittently. 3-Partial/Moderate Assistance-helper does LESS THAN HALF the effort. [place] lifts, holds or supports trunk or limbs, but provides less than half the effort. 2-Substantial/Maximal Assistance-helper does MORE THAN HALF the effort. [place] lifts or holds trunk or limbs and provides more than half the effort. 8-Sixhwrxvg-pdicbj does ALL the effort. Patient does none of the effort to complete the activity. Or, the assistance of 2 or more helpers is required for the patient to complete the activity. If activity was not attempted, code reason: 7-Patient Refused. 9-Not Applicable-not attempted and the patient did not perform the activity before the current illness, exacerbation or injury. 10-Not Attempted due to Environmental Limitations-(lack of equipment, weather restraints, etc.). 88-Not Attempted due to Medical Conditions or Safety Concerns. Sit to Stand (QC): 3 Patient performs sit to stand x2 with min assist from an elevated chair and stands for about 30 sec each time. Weight Bearing Right Lower Extremity: Right Weight Bearing/Tolerated Left Lower Extremity: Left Weight Bearing/Tolerated Left WBAT with knee immobilizer. Exercises Seated Therapy Exercises: Ankle pumps, Long arc quads, Hip flexion, Hip abd/add Seated Reps: 20 Treatments functional mobility and LE strengthening Assessment Current Status: Fair Progress improved sit to stand PT Commissioning Manager Goals Chcf Goals PT Chcf Goals Time Frame: Jun 22, 2021 Roll Left & Right (QC): 6 Sit to Lying (QC): 6 Lying-Sitting on Side/Bed(QC): 6 Sit to Stand (QC): 6 Chair/Onw-yb-Dloxj Xfer(QC): 6 Toilet Transfer (QC): 6 Car Transfer (QC): 6 Does the Patient Walk: Yes Walk 10 feet (QC): 6 Walk 50ft with 2 Turns (QC): 6 Walk 150 ft (QC): 6 Walking 10ft on Uneven Surface: 6 1 Step (curb) (QC): 6 4 Steps (QC): 6 12 Steps (QC): 6 Picking up an Object (QC): 6 Does the Pt use WC or Scooter?: No Wheel 50 feet with 2 turns (QC: 9 Type: N/A Wheel 150 feet: 9 Type: N/A PT Plan Problem List Problem List: Activity Tolerance, Functional Strength, Safety, Balance, Gait, Transfer, Bed Mobility, ROM Treatment/Plan Treatment Plan: Continue Plan of Care Treatment Plan: Bed Mobility, Concurrent Therapy, Education, Functional Activity Johanne, Functional Strength, Group Therapy, Gait, Safety, Therapeutic Exercise, Transfers Treatment Duration: Jun 22, 2021 Frequency: At least 5 of 7 days/Wk (IRF) Estimated Hrs Per Day: 1.5 hours per day Patient and/or Family Agrees t: Yes Safety Risks/Education Patient Education: Correct Positioning, Safety Issues Teaching Recipient: Patient Teaching Methods: Demonstration, Discussion Response to Teaching: Reinforcement Needed Time/GCodes Time In: 1415 Time Out: 1445 Total Billed Treatment Time: 30 Total Billed Treatment 1 visit EX 30' RACHEL BARBOZA PT May 24, 2021 14:48
--- NOTE | 2021-05-24 16:56 | Diagnostic Imaging Report ---
HISTORY: Postsurgical pain. EXAMINATION: Right hip from 05/24/2021. FINDINGS: Five views of the right hip. There is an intramedullary yelena with intervening screws along the proximal and distal femur. A transverse fracture through the mid femur appears to be in good anatomic alignment. There are patsy noted along the groin and anterior knee. No other fractures appreciated. There are no dislocations. The evaluation of the hip is limited by technique. IMPRESSION: 1. Uncomplicated-appearing postoperative changes. Dictated by: Dictated on workstation # [id number]
[2021-05-24 20:00] VITALS: BP 125/80
[2021-05-24] MEDS: amLODIPine 10 MG (NORVASC) TAB PO SCH (22:03)
[2021-05-25] MEDS: MELATONIN 3 MG TABLET PO PRN (00:46)
[2021-05-25] MEDS: ENOXAPARIN 60 MG/0.6 ML (LOVENOX) SYR SC SCH ×2 (05:51→17:47)
[2021-05-25 07:30] VITALS: BP 132/79
[2021-05-25] MEDS: LOSARTAN 100 MG (COZAAR) TABLET PO SCH (09:03)
[2021-05-25] MEDS: metFORMIN 500 MG (GLUCOPHAGE) TAB PO SCH ×2 (09:03→17:46)
[2021-05-25] MEDS: LACTOBACILLUS ACIDOPHILUS (PROBIOTIC) CAPSULE PO SCH ×2 (09:03→17:46)
[2021-05-25] MEDS: polyethylene glycoL POWDER 17 GM (MIRALAX) PACK PO SCH ×2 (09:04→21:35)
[2021-05-25] MEDS: DOCUSATE SODIUM 100 MG (COLACE) CAP PO SCH ×2 (09:08→21:34)
[2021-05-25] MEDS: SENNA W/DOCUSATE (SENOKOT S) TABLET PO SCH ×2 (09:08→21:35)
[2021-05-25] MEDS: SENNOSIDES 8.6 MG (SENOKOT) TAB PO SCH (09:08)
--- NOTE | 2021-05-25 11:43 | Physical Therapy Daily Note ---
PT Daily Note-Current Subjective Pt in bed, agreeable to treatment. Pt rates pain 0/10 upon arrival and 4/10 (R) LE during movement. Mental Status Patient Orientation: Person, Place, Situation Transfers SCALE: Activities may be completed with or without assistive devices. 1-Nwwdqfjeor-cotiukf completes the activity by him/herself with no assistance from a helper. 5-Set-up or Clean-up Assistance-helper sets up or cleans up; patient completes activity. [place] assists only prior to or following the activity. 4-Supervision or Touching Assistance-helper provides verbal cues and/or touching/steadying and/or contact guard assistance as patient completes activ ity. Assistance may be provided throughout the activity or intermittently. 3-Partial/Moderate Assistance-helper does LESS THAN HALF the effort. [place] lifts, holds or supports trunk or limbs, but provides less than half the effort. 2-Substantial/Maximal Assistance-helper does MORE THAN HALF the effort. [place] lifts or holds trunk or limbs and provides more than half the effort. 4-Ynrxrftxj-qckaia does ALL the effort. Patient does none of the effort to complete the activity. Or, the assistance of 2 or more helpers is required for the patient to complete the activity. If activity was not attempted, code reason: 7-Patient Refused. 9-Not Applicable-not attempted and the patient did not perform the activity before the current illness, exacerbation or injury. 10-Not Attempted due to Environmental Limitations-(lack of equipment, weather restraints, etc.). 88-Not Attempted due to Medical Conditions or Safety Concerns. Weight Bearing Right Lower Extremity: Right Weight Bearing/Tolerated Left Lower Extremity: Left Weight Bearing/Tolerated Left WBAT with knee immobilizer. Exercises Supine Ex: Ankle pumps, Quad Set, Glut sets, Heel Slides, Short Arc Quads, Hip abd/add Supine Reps: 20 Treatments Pt transfered bed ->recliner. Pt stood at PW and scooted by inching and turning feet x 2-3ft to recliner. Pt up in recliner with all needs met. Assessment Current Status: Fair Progress Pt limited by pain and apprehension of putting full weight (R) LE. Pt resting in recliner with call light and all needs met. PT Halfway Goals Auto Parts Handler Goals PT Auto Parts Handler Goals Time Frame: Jun 22, 2021 Roll Left & Right (QC): 6 Sit to Lying (QC): 6 Lying-Sitting on Side/Bed(QC): 6 Sit to Stand (QC): 6 Chair/Qaa-ft-Miaag Xfer(QC): 6 Toilet Transfer (QC): 6 Car Transfer (QC): 6 Does the Patient Walk: Yes Walk 10 feet (QC): 6 Walk 50ft with 2 Turns (QC): 6 Walk 150 ft (QC): 6 Walking 10ft on Uneven Surface: 6 1 Step (curb) (QC): 6 4 Steps (QC): 6 12 Steps (QC): 6 Picking up an Object (QC): 6 Does the Pt use WC or Scooter?: No Wheel 50 feet with 2 turns (QC: 9 Type: N/A Wheel 150 feet: 9 Type: N/A PT Plan Treatment/Plan Treatment Plan: Continue Plan of Care Treatment Plan: Bed Mobility, Concurrent Therapy, Education, Functional Activity Johanne, Functional Strength, Group Therapy, Gait, Safety, Therapeutic Exercise, Transfers Treatment Duration: Jun 22, 2021 Frequency: At least 5 of 7 days/Wk (IRF) Estimated Hrs Per Day: 1.5 hours per day Patient and/or Family Agrees t: Yes Time/GCodes Time In: 1105 Time Out: 1140 Total Billed Treatment Time: 35 Total Billed Treatment 1, ther ex 15, FA 20' KEENAN COATES CPTRamon May 25, 2021 11:43
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
[2021-05-25 20:00] VITALS: BP 124/67
[2021-05-25] MEDS: amLODIPine 10 MG (NORVASC) TAB PO SCH (21:35)
[2021-05-26] MEDS: ENOXAPARIN 60 MG/0.6 ML (LOVENOX) SYR SC SCH ×2 (05:56→18:45)
[2021-05-26 07:30] VITALS: BP 125/81
[2021-05-26] MEDS: LACTOBACILLUS ACIDOPHILUS (PROBIOTIC) CAPSULE PO SCH ×2 (08:59→18:45)
[2021-05-26] MEDS: metFORMIN 500 MG (GLUCOPHAGE) TAB PO SCH ×2 (08:59→18:45)
[2021-05-26] MEDS: polyethylene glycoL POWDER 17 GM (MIRALAX) PACK PO SCH ×2 (08:59→20:01)
[2021-05-26] MEDS: SENNA W/DOCUSATE (SENOKOT S) TABLET PO SCH ×2 (09:02→20:26)
[2021-05-26] MEDS: DOCUSATE SODIUM 100 MG (COLACE) CAP PO SCH ×2 (09:02→20:26)
[2021-05-26] MEDS: SENNOSIDES 8.6 MG (SENOKOT) TAB PO SCH (09:02)
[2021-05-26] MEDS: LOSARTAN 100 MG (COZAAR) TABLET PO SCH (09:02)
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
[2021-05-26 19:57] VITALS: BP 131/64
[2021-05-26] MEDS: amLODIPine 10 MG (NORVASC) TAB PO SCH (20:27)
[2021-05-27] MEDS: ENOXAPARIN 60 MG/0.6 ML (LOVENOX) SYR SC SCH ×2 (05:30→17:42)
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
[2021-05-27 05:51] LABS: BASOPHILS % (AUTO) 0 % (0-10); EOSINOPHILS # (AUTO) 0.2 10^3/uL (0.0-0.3); EOSINOPHILS % (AUTO) 1 % (0-10); HEMATOCRIT 36 % (40-54); HEMOGLOBIN 11.7 g/dL (13.3-17.7); LYMPHOCYTES # (AUTO) 1.5 10^3/uL (1.0-4.0); LYMPHOCYTES % (AUTO) 14 % (12-44); MEAN CORPUSCULAR HEMOGLOBIN 29 pg (25-34); MEAN CORPUSCULAR HGB CONC 33 g/dL (32-36); MEAN CORPUSCULAR VOLUME 88 fL (80-99); MEAN PLATELET VOLUME 11.1 fL (9.0-12.2); MONOCYTES % (AUTO) 10 % (0-12); NEUTROPHILS # (AUTO) 7.7 10^3/uL (1.8-7.8); NEUTROPHILS % (AUTO) 74 % (42-75); PLATELET COUNT 339 10^3/uL (130-400); WHITE BLOOD COUNT 10.5 10^3/uL (4.3-11.0)
[2021-05-27 06:02] LABS: ALBUMIN 3.3 GM/DL (3.2-4.5)
[2021-05-27 06:03] LABS: POTASSIUM 3.5 MMOL/L (3.6-5.0)
[2021-05-27 06:04] LABS: CALCIUM 8.6 MG/DL (8.5-10.1)
[2021-05-27 06:05] LABS: TOTAL PROTEIN 6.4 GM/DL (6.4-8.2)
[2021-05-27 06:07] LABS: BILIRUBIN,TOTAL 1.4 MG/DL (0.1-1.0)
[2021-05-27 06:09] LABS: CREATININE SERUM 0.75 MG/DL (0.60-1.30)
[2021-05-27 08:00] VITALS: BP 139/68
[2021-05-27] MEDS: LOSARTAN 100 MG (COZAAR) TABLET PO SCH (08:15)
[2021-05-27] MEDS: LACTOBACILLUS ACIDOPHILUS (PROBIOTIC) CAPSULE PO SCH ×2 (08:15→17:42)
[2021-05-27] MEDS: metFORMIN 500 MG (GLUCOPHAGE) TAB PO SCH ×2 (08:16→17:42)
[2021-05-27] MEDS: polyethylene glycoL POWDER 17 GM (MIRALAX) PACK PO SCH ×2 (08:16→21:24)
[2021-05-27] MEDS: SENNA W/DOCUSATE (SENOKOT S) TABLET PO SCH ×2 (08:17→21:21)
[2021-05-27] MEDS: DOCUSATE SODIUM 100 MG (COLACE) CAP PO SCH ×2 (08:17→21:22)
[2021-05-27] MEDS: SENNOSIDES 8.6 MG (SENOKOT) TAB PO SCH (09:01)
--- NOTE | 2021-05-27 09:33 | Occupational Ther Daily Note ---
OT Current Status-Daily Note Subjective Pt laying supine in bed, alert. No c/o pain. Pt agrees to therapy. Mental Status/Objective Patient Orientation: Person, Place, Time, Situation Attachments: Other-See Comments (L knee brace, finger splint) ADL-Treatment 1 Session- (): Pt agrees to shower. Supine to EOB with HOB elevated and using bed rails, pt able to complete by self with increased time. Pt required 2 person mod assist sit->stand from EOB using platform FWW for stability. Using platform FWW, pt able to take steps for transfer from EOB to w/c then stand->sit with min assist to w/c using platform FWW for stability. OT/PT cotreat (), 2 clinicians required for skilled instruction and care to decrease fall risk, increase activity tolerance, increase functional mobility/transfers and w/c mobility. PT focusing on w/c mobility, transfers and ambulation while OT focusing on ADLs, functional mobility and B UE placement during mobility. Pt propelled w/c independently to shower room. Pt pulled to stand with grabbar from w/c then with assist to stabilize from OT/PT was able to hike pants over hips then assist to thread pants over knee brace to doff pants. Pt required assist in don/doff knee brace. After session, Pt left in care of PT in therapy room. Therapy Code Descriptions/Definitions Functional [place] Measure: 0=Not Assessed/NA 4=Minimal Assistance 1=Total Assistance 5=Supervision or Setup 2=Maximal Assistance 6=Modified [place] 3=Moderate Assistance 7=Complete IndependenceSCALE: Activities may be completed with or without assistive devices. 9-Bvprtxbkwv-jtdregg completes the activity by him/herself with no assistance from a helper. 5-Set-up or Clean-up Assistance-helper sets up or cleans up; patient completes activity. [place] assists only prior to or following the activity. 4-Supervision or Touching Assistance-helper provides verbal cues and/or touching/steadying and/or contact guard assistance as patient completes activity. Assistance may be provided throughout the activity or intermittently. 3-Partial/Moderate Assistance-helper does LESS THAN HALF the effort. [place] lifts, holds or supports trunk or limbs, but provides less than half the effort. 2-Substantial/Maximal Assistance-helper does MORE THAN HALF the effort. [place] lifts or holds trunk or limbs and provides more than half the effort. 8-Htfzifgat-pgpxqs does ALL the effort. Patient does none of the effort to complete the activity. Or, the assistance of 2 or more helpers is required for the patient to complete the activity. If activity was not attempted, code reason: 7-Patient Refused. 9-Not Applicable-not attempted and the patient did not perform the activity before the current illness, exacerbation or injury. 10-Not Attempted due to Environmental Limitations-(lack of equipment, weather restraints, etc.). 88-Not Attempted due to Medical Conditions or Safety Concerns. Oral Hygiene (QC): 5 (Pt engaged in brushing teeth while seated with supplies set up in shower room.) Bathing Location: L Arm, R Arm, L Upper Leg, R Upper Leg, L Lower Leg (including foot), R Lower Leg (including foot), Chest, Abdomen, Buttocks, Perineal Area Shower/Bathe Self (QC): 4 (Pt able to shower self while seated [place] [facility] [place] room with supplies gathered. Pt able to cleanse buttocks with LHS, per request of pt, efficiency of cleansing was checked) Upper Body Dressing (QC): 5 (Pt able to don/doff shirt with set up while seated on [facility] Lower Body Dressing (QC): 1 (Min A x2 to stand while pt hiked pants over hips. Pt able to thread feet into/out of pants by self in sitting. Assist needed to don/doff knee brace.) On/Off Footwear: 2 (Pt needed assist donning/doffing socks while seated. ) Other Treatment 2nd session- (8826-1931): Skilled instruction for correct technique. Pt is demonstrating good technique and able to remember HEP with minimal cues. Pt engaged in therapeutic exercise while seated in recliner. Pt engaged in resist roxanne exercise to strengthen B UE and increase activity tolerance for ADL tasks. Pt participated in 15 reps of each using green theraband (med) for resistance: B bicep curls, B tricep extensions, B shoulder abduction, horizontal shoulder abductions, internal/external rotations. After session, pt sitting in recliner with call light/phone within reach. All needs met in room. Education OT Patient Education: Home exercise program Teaching Recipient: Patient Teaching Methods: Demonstration, Discussion Response to Teaching: Verbalize Understanding, Return Demonstration, Reinforcement Needed OT Short Term Goals Short Term Goals Time Frame: Jun 05, 2021 Oral hygiene: 5 Toileting hygiene: 4 Shower/bathe self: 4 Upper body dressin Lower body dressin Putting on/taking off footwear: 4 OT Group Home Goals Group Home Goals Time Frame: Jun 21, 2021 Eating (QC): 6 Oral Hygiene (QC): 6 Toileting Hygiene (QC): 6 Shower/Bathe Self (QC): 6 Upper Body Dressing (QC): 6 Lower Body Dressing (QC): 6 On/Off Footwear (QC): 6 Additional Goals: 1-Demonstrate ADL Tasks, 2-Verbalize Understanding, 3- ImproveStrength/Johanne 1=Demonstrate adherence to instructed precautions during ADL tasks. 2=Patient will verbalize/demonstrate understanding of assistive devices/modifications for ADL. 3=Patient will improve strength/tolerance for activity to enable patient to perform ADL's. OT Education/Plan Problem List/Assessment Assessment: Decreased Activ Tolerance, Decreased UE Strength, Impaired Coordination, Impaired Funct Balance, Impaired Self-Care Skills Discharge Recommendations Plan/Recommendations: Continue POC Treatment Plan/Plan of Care Patient would benefit from OT for education, treatment and training to promote independence in ADL's, mobility, safety and/or upper extremity function for ADL's. Plan of Care: ADL Retraining, Functional Mobility, Group Exercise/Act as Ind, UE Funct Exercise/Act Treatment Duration: Jun 21, 2021 Frequency: At least 5 of 7 days/Wk (IRF) Estimated Hrs Per Day: 1.5 hours per day Agreement: Yes Rehab Potential: Good Time/GCodes Start Time: 08:15 (1300) Stop Time: 09:30 (1315) Total Time Billed (hr/min): 90 Billed Treatment Time 1st session [id number]: 1 visit-ADL 3 (45 min) FA 2 (30 min) co-treat with PT 0 [id number], individual [id number] 2nd session [id number]: 1 visit- EX (15 min) MARÍA GIRARD May 27, 2021 09:33
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
[2021-05-27 20:00] VITALS: BP 119/58
[2021-05-27] MEDS: amLODIPine 10 MG (NORVASC) TAB PO SCH (21:22)
[2021-05-27] MEDS: ACETAMINOPHEN 325 MG TABLET PO PRN (23:31)
[2021-05-28] MEDS: ENOXAPARIN 60 MG/0.6 ML (LOVENOX) SYR SC SCH ×2 (06:37→17:18)
[2021-05-28 07:28] VITALS: BP 126/64
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
--- NOTE | 2021-05-28 08:58 | Occupational Ther Daily Note ---
OT Current Status-Daily Note Subjective Pt supine in bed, alert. No c/o pain. Pt agrees to therapy. Mental Status/Objective Patient Orientation: Person, Place, Time, Situation Attachments: Other-See Comments (leg brace, finger splint) ADL-Treatment Pt declines shower. Agrees to grooming and changing shirt. Supine to EOB with HOB elevated, independent. CGA from raised surface for sit to stand then CGA using platform FWW to transfer to w/c. Pt then propelled w/c to bathroom to complete grooming. Therapy Code Descriptions/Definitions Functional [place] Measure: 0=Not Assessed/NA 4=Minimal Assistance 1=Total Assistance 5=Supervision or Setup 2=Maximal Assistance 6=Modified [place] 3=Moderate Assistance 7=Complete IndependenceSCALE: Activities may be completed with or without assistive devices. 3-Uchnfkvzqz-kfqnvxp completes the activity by him/herself with no assistance from a helper. 5-Set-up or Clean-up Assistance-helper sets up or cleans up; patient completes activity. [place] assists only prior to or following the activity. 4-Supervision or Touching Assistance-helper provides verbal cues and/or touching/steadying and/or contact guard assistance as patient completes activity. Assistance may be provided throughout the activity or intermittently. 3-Partial/Moderate Assistance-helper does LESS THAN HALF the effort. [place] lifts, holds or supports trunk or limbs, but provides less than half the effort. 2-Substantial/Maximal Assistance-helper does MORE THAN HALF the effort. [place] lifts or holds trunk or limbs and provides more than half the effort. 5-Agwbdiklm-jyiako does ALL the effort. Patient does none of the effort to complete the activity. Or, the assistance of 2 or more helpers is required for the patient to complete the activity. If activity was not attempted, code reason: 7-Patient Refused. 9-Not Applicable-not attempted and the patient did not perform the activity before the current illness, exacerbation or injury. 10-Not Attempted due to Environmental Limitations-(lack of equipment, weather restraints, etc.). 88-Not Attempted due to Medical Conditions or Safety Concerns. Eating (QC): 6 (Pt opens containers and self feeding with regular silverware.) Oral Hygiene (QC): 6 (Pt gathers supplies and brushes teeth/cleanses face while seated in w/c independently.) Upper Body Dressing (QC): 5 (Pt dons shirt after set up while seated in w/c.) Other Treatment Co-treat with PT ([id number]), skills of 2 clinicians required for treatment to decrease fall risk, increase mobility,increase overall strength and activity tolerance for ADLs. PT focusing on ambulation, transfers and standing balance while OT focusing on ADLs, B UE strengthening and dynamic standing balance for daily functional tasks. Pt participated in therapeutic exercise to strengthen B UE and increase activity tolerance to improve ADL performance. Pt engaged in 15 reps of B bicep curls and B tricep curls using 3 # hand weight for resistance. See PT notes for transfers and ambulation. Pt engaged in dynamic standing activity of bouncing therapy ball/catch. Pt demonstrated no LOB while engaging in activity. After session, pt was left with PT to continue therapy. OT Short Term Goals Short Term Goals Time Frame: Jun 05, 2021 Oral hygiene: 5 Toileting hygiene: 4 Shower/bathe self: 4 Upper body dressin Lower body dressin Putting on/taking off footwear: 4 OT Fold Skiver Goals Fold Skiver Goals Time Frame: Jun 21, 2021 Eating (QC): 6 Oral Hygiene (QC): 6 Toileting Hygiene (QC): 6 Shower/Bathe Self (QC): 6 Upper Body Dressing (QC): 6 Lower Body Dressing (QC): 6 On/Off Footwear (QC): 6 Additional Goals: 1-Demonstrate ADL Tasks, 2-Verbalize Understanding, 3- ImproveStrength/Johanne 1=Demonstrate adherence to instructed precautions during ADL tasks. 2=Patient will verbalize/demonstrate understanding of assistive devices/modifications for ADL. 3=Patient will improve strength/tolerance for activity to enable patient to perform ADL's. OT Education/Plan Problem List/Assessment Assessment: Decreased Activ Tolerance, Decreased UE Strength, Impaired Coordination, Impaired Funct Balance, Impaired Self-Care Skills Discharge Recommendations Plan/Recommendations: Continue POC Treatment Plan/Plan of Care Patient would benefit from OT for education, treatment and training to promote independence in ADL's, mobility, safety and/or upper extremity function for ADL's. Plan of Care: ADL Retraining, Functional Mobility, Group Exercise/Act as Ind, UE Funct Exercise/Act Treatment Duration: Jun 21, 2021 Frequency: At least 5 of 7 days/Wk (IRF) Estimated Hrs Per Day: 1.5 hours per day Agreement: Yes Rehab Potential: Good Time/GCodes Start Time: 07:30 Stop Time: 09:00 Total Time Billed (hr/min): 90 Billed Treatment Time 1 visit- ADL 2 (30 min) EX 4 (60 min) Co treat with PT ([id number]) Individual ([id number]) MARÍA GIRARD May 28, 2021 08:58
[2021-05-28] MEDS: polyethylene glycoL POWDER 17 GM (MIRALAX) PACK PO SCH ×2 (09:00→20:36)
[2021-05-28] MEDS: LOSARTAN 100 MG (COZAAR) TABLET PO SCH (09:31)
[2021-05-28] MEDS: LACTOBACILLUS ACIDOPHILUS (PROBIOTIC) CAPSULE PO SCH ×2 (09:31→17:18)
[2021-05-28] MEDS: DOCUSATE SODIUM 100 MG (COLACE) CAP PO SCH ×2 (09:31→20:36)
[2021-05-28] MEDS: SENNA W/DOCUSATE (SENOKOT S) TABLET PO SCH ×2 (09:31→20:36)
[2021-05-28] MEDS: SENNOSIDES 8.6 MG (SENOKOT) TAB PO SCH (09:31)
[2021-05-28] MEDS: metFORMIN 500 MG (GLUCOPHAGE) TAB PO SCH ×2 (09:31→17:18)
--- NOTE | 2021-05-28 09:54 | Physical Therapy Daily Note ---
PT Daily Note-Current Subjective Pt sitting in [facility] working w/OT upon arrival. Pt agrees to PT/OT co-treat. Pain Location: Right Location Body Site: Hip Pain Description: Ache, Tingling, Numbness Comment: Pt reports but doesn't rate pain. Mental Status Patient Orientation: Person, Place, Time, Situation Attachments: Other-See Comments (L knee immobilizer & R pinky splint) Transfers SCALE: Activities may be completed with or without assistive devices. 3-Vmzwkmvmpe-abkqqvd completes the activity by him/herself with no assistance from a helper. 5-Set-up or Clean-up Assistance-helper sets up or cleans up; patient completes activity. [place] assists only prior to or following the activity. 4-Supervision or Touching Assistance-helper provides verbal cues and/or touchin g/steadying and/or contact guard assistance as patient completes activity. Assistance may be provided throughout the activity or intermittently. 3-Partial/Moderate Assistance-helper does LESS THAN HALF the effort. [place] lifts, holds or supports trunk or limbs, but provides less than half the effort. 2-Substantial/Maximal Assistance-helper does MORE THAN HALF the effort. [place] lifts or holds trunk or limbs and provides more than half the effort. 5-Lehghbfsr-dmquso does ALL the effort. Patient does none of the effort to complete the activity. Or, the assistance of 2 or more helpers is required for the patient to complete the activity. If activity was not attempted, code reason: 7-Patient Refused. 9-Not Applicable-not attempted and the patient did not perform the activity before the current illness, exacerbation or injury. 10-Not Attempted due to Environmental Limitations-(lack of equipment, weather restraints, etc.). 88-Not Attempted due to Medical Conditions or Safety Concerns. Sit to Stand (QC): 3 Pt starts at Min A for transfers but as he tires becomes Mod A. Weight Bearing Right Lower Extremity: Right Weight Bearing/Tolerated Left Lower Extremity: Left Weight Bearing/Tolerated Left WBAT with knee immobilizer. Gait Training Does the Patient Walk?: Yes Distance: 25' x3 Walk 10 feet (QC): 4 Walk 50 ft with 2 Turns(QC): 4 Gait Persons Needed: 1 Gait Assistive Device: Walker Platform Wheelchair Training Does the Pt Use a Wheelchair?: Yes Wheel 50 ft with 2 turns (QC): 5 Wheel 150 ft (QC): 5 Type of Wheelchair: Manual Treatments Co-treat with PT ([id number]), skills of 2 clinicians required for treatment to decrease fall risk, increase mobility,increase overall strength and activity tolerance for ADLs. PT focusing on ambulation, transfers and standing balance while OT focusing on ADLs, B UE strengthening and dynamic standing balance for daily functional tasks. Pt stands from [facility] and amb. in Gym. This is completed two times with RB in between each. Pt works with PT/OT for dynamic standing balance activity with bouncing and catching ball. Pt takes RB then practices 3 sit to stands to improve independence of task. Pt amb. a third time in Gym and uses NuStep for 15m at [facility]. After RB, pt transfers to [facility] and propels self in hallway to room. Pt transfers to recliner to rest with all needs met, call light in hand. Assessment Current Status: Good Progress Pt is improving with independence and activity tolerance lily. with ambulation. PT Long-Term Goals Long-Term Goals PT Manager Process Improvement Goals Time Frame: Jun 22, 2021 Roll Left & Right (QC): 6 Sit to Lying (QC): 6 Lying-Sitting on Side/Bed(QC): 6 Sit to Stand (QC): 6 Chair/Zrp-nl-Hdmll Xfer(QC): 6 Toilet Transfer (QC): 6 Car Transfer (QC): 6 Does the Patient Walk: Yes Walk 10 feet (QC): 6 Walk 50ft with 2 Turns (QC): 6 Walk 150 ft (QC): 6 Walking 10ft on Uneven Surface: 6 1 Step (curb) (QC): 6 4 Steps (QC): 6 12 Steps (QC): 6 Picking up an Object (QC): 6 Does the Pt use WC or Scooter?: No Wheel 50 feet with 2 turns (QC: 9 Type: N/A Wheel 150 feet: 9 Type: N/A PT Plan Problem List Problem List: Activity Tolerance Treatment/Plan Treatment Plan: Continue Plan of Care Treatment Plan: Bed Mobility, Concurrent Therapy, Education, Functional Activity Johanne, Functional Strength, Group Therapy, Gait, Safety, Therapeutic Exercise, Transfers Treatment Duration: Jun 22, 2021 Frequency: At least 5 of 7 days/Wk (IRF) Estimated Hrs Per Day: 1.5 hours per day Patient and/or Family Agrees t: Yes Safety Risks/Education Patient Education: Gait Training, Transfer Techniques, Correct Positioning, Safety Issues Teaching Recipient: Patient Teaching Methods: Demonstration, Discussion Response to Teaching: Verbalize Understanding, Return Demonstration Time/GCodes Time In: 800 Time Out: 930 Total Billed Treatment Time: 90 Total Billed Treatment Co-treat w/OT for 60m (800-900) 1, FA x2 (25m), GT x2 (30m), EX (20m) & [facility] (15m) MURRAY LICONA BUSHEL GIRL May 28, 2021 09:54
[2021-05-28] MEDS ORDERED: LOSA1TAB23 PO (16:23)
[2021-05-28] MEDS ORDERED: PHEN37.58 PO (16:23)
[2021-05-28] MEDS ORDERED: NAPR220C11 PO (16:23)
[2021-05-28] MEDS ORDERED: CETI10TA49 PO (16:23)
[2021-05-28 20:07] VITALS: BP 120/60
[2021-05-28] MEDS: amLODIPine 10 MG (NORVASC) TAB PO SCH (20:36)
[2021-05-29] MEDS: ENOXAPARIN 60 MG/0.6 ML (LOVENOX) SYR SC SCH ×2 (05:10→18:05)
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
--- NOTE | 2021-05-29 07:27 | Occupational Ther Daily Note ---
OT Current Status-Daily Note Subjective Pt supine in bed, alert. No c/o pain. Pt agrees to therapy. Mental Status/Objective Patient Orientation: Person, Place, Time, Situation Attachments: Other-See Comments (R knee brace, finger splint) ADL-Treatment Pt agrees to shower. Supine to EOB independently using bed rails and HOB elevated. EOB to stand, CGA with bed elevated. Transferred using platform FWW to w/c with CGA and increased time. Pt transferred w/c <-> BSC in shower using grabbars for stability CGA. Pt participated in skilled instruction of wheel chair mobility, propelling self from room to tub transfer room. Skilled instruction on AE of shower bench/tub transfer technique given. Pt demonstrated good return of instructions verbally. Pt propelled self to room. Pt w/c - >recliner using FWW for stability CGA. After session, pt sitting in recliner with phone/call light within reach. All needs met in room. Therapy Code Descriptions/Definitions Functional [place] Measure: 0=Not Assessed/NA 4=Minimal Assistance 1=Total Assistance 5=Supervision or Setup 2=Maximal Assistance 6=Modified [place] 3=Moderate Assistance 7=Complete IndependenceSCALE: Activities may be completed with or without assistive devices. 2-Yybolztvya-dpeqzrd completes the activity by him/herself with no assistance from a helper. 5-Set-up or Clean-up Assistance-helper sets up or cleans up; patient completes activity. [place] assists only prior to or following the activity. 4-Supervision or Touching Assistance-helper provides verbal cues and/or touching/steadying and/or contact guard assistance as patient completes activity. Assistance may be provided throughout the activity or intermittently. 3-Partial/Moderate Assistance-helper does LESS THAN HALF the effort. [place] lifts, holds or supports trunk or limbs, but provides less than half the effort. 2-Substantial/Maximal Assistance-helper does MORE THAN HALF the effort. [place] lifts or holds trunk or limbs and provides more than half the effort. 1-Uiqoywzjb-bdvohy does ALL the effort. Patient does none of the effort to comp lete the activity. Or, the assistance of 2 or more helpers is required for the patient to complete the activity. If activity was not attempted, code reason: 7-Patient Refused. 9-Not Applicable-not attempted and the patient did not perform the activity before the current illness, exacerbation or injury. 10-Not Attempted due to Environmental Limitations-(lack of equipment, weather restraints, etc.). 88-Not Attempted due to Medical Conditions or Safety Concerns. Eating (QC): 6 (Independent with opening containers/packages and uses regular utensils to eat.) Oral Hygiene (QC): 6 (Sitting at sink, pt independent with oral care.) Bathing Location: L Arm, R Arm, L Upper Leg, R Upper Leg, L Lower Leg (including foot), R Lower Leg (including foot), Chest, Abdomen, Buttocks, Perineal Area Shower/Bathe Self (QC): 5 (Sitting on BSC in shower, pt able to complete bathing all areas using LHS, grabbars and hand held shower.) Upper Body Dressing (QC): 5 (After setup, pt able to complete by self in sitting.) Lower Body Dressing (QC): 3 (Pt threads clothing over feet using interpreter translator when seated. Pt requires CGA to hike down over hips in standing, Min assist to hike up over hips while standing using grabbars for support. Pt needs assist don/doffing knee brace while seated.) On/Off Footwear: 5 (After setup, pt able to don/doff socks using interpreter translator and sock aide.) Education OT Patient Education: Safety issues, Transfer techniques, Use of adapted equipment, W/C management Teaching Recipient: Patient Teaching Methods: Demonstration, Discussion Response to Teaching: Verbalize Understanding, Return Demonstration, Reinforcement Needed (Pt will need to return demonstrate tub transfer.) OT Short Term Goals Short Term Goals Time Frame: Jun 05, 2021 Oral hygiene: 5 Toileting hygiene: 4 Shower/bathe self: 4 Upper body dressin Lower body dressin Putting on/taking off footwear: 4 OT Typo Machine Operator Goals Custodial Goals Time Frame: Jun 21, 2021 Eating (QC): 6 Oral Hygiene (QC): 6 Toileting Hygiene (QC): 6 Shower/Bathe Self (QC): 6 Upper Body Dressing (QC): 6 Lower Body Dressing (QC): 6 On/Off Footwear (QC): 6 Additional Goals: 1-Demonstrate ADL Tasks, 2-Verbalize Understanding, 3- ImproveStrength/Johanne 1=Demonstrate adherence to instructed precautions during ADL tasks. 2=Patient will verbalize/demonstrate understanding of assistive devices/modifications for ADL. 3=Patient will improve strength/tolerance for activity to enable patient to perform ADL's. OT Education/Plan Problem List/Assessment Assessment: Decreased Safety Aware, Impaired Coordination, Impaired Funct Balance, Impaired Self-Care Skills Discharge Recommendations Plan/Recommendations: Continue POC Treatment Plan/Plan of Care Patient would benefit from OT for education, treatment and training to promote independence in ADL's, mobility, safety and/or upper extremity function for ADL's. Plan of Care: ADL Retraining, Functional Mobility, Group Exercise/Act as Ind, UE Funct Exercise/Act Treatment Duration: Jun 21, 2021 Frequency: At least 5 of 7 days/Wk (IRF) Estimated Hrs Per Day: 1.5 hours per day Agreement: Yes Rehab Potential: Good Time/GCodes Start Time: 07:30 Stop Time: 09:00 Total Time Billed (hr/min): 90 Billed Treatment Time 1 Visit- ADL 5 (75 min) FA (15 min) MARÍA GIRARD May 29, 2021 07:27
[2021-05-29 08:00] VITALS: BP 125/75
[2021-05-29] MEDS: DOCUSATE SODIUM 100 MG (COLACE) CAP PO SCH ×2 (08:20→19:04)
[2021-05-29] MEDS: LACTOBACILLUS ACIDOPHILUS (PROBIOTIC) CAPSULE PO SCH ×2 (08:20→18:04)
[2021-05-29] MEDS: metFORMIN 500 MG (GLUCOPHAGE) TAB PO SCH ×2 (08:20→18:04)
[2021-05-29] MEDS: LOSARTAN 100 MG (COZAAR) TABLET PO SCH (08:20)
[2021-05-29] MEDS: polyethylene glycoL POWDER 17 GM (MIRALAX) PACK PO SCH ×2 (09:28→19:05)
[2021-05-29] MEDS: SENNOSIDES 8.6 MG (SENOKOT) TAB PO SCH (09:31)
[2021-05-29] MEDS: SENNA W/DOCUSATE (SENOKOT S) TABLET PO SCH ×2 (09:31→19:05)
--- NOTE | 2021-05-29 11:50 | Physical Therapy Daily Note ---
PT Daily Note-Current Subjective Pt sitting in recliner upon arrival. Pt agrees to PT. Pt reports numbness in R LE lily. from knee down. Pain Location: Right Location Body Site: Knee Pain Description: Tightness, Numbness Mental Status Patient Orientation: Person, Place, Time, Situation Attachments: Knee Immobilizer Transfers SCALE: Activities may be completed with or without assistive devices. 7-Lmmrwyfikv-bgrypun completes the activity by him/herself with no assistance from a helper. 5-Set-up or Clean-up Assistance-helper sets up or cleans up; patient completes activity. [place] assists only prior to or following the activity. 4-Supervision or Touching Assistance-helper provides verbal cues and/or touching/steadying and/or contact guard assistance as patient completes activity. Assistance may be provided throughout the activity or intermittently. 3-Partial/Moderate Assistance-helper does LESS THAN HALF the effort. [place] lifts, holds or supports trunk or limbs, but provides less than half the effort. 2-Substantial/Maximal Assistance-helper does MORE THAN HALF the effort. [place] lifts or holds trunk or limbs and provides more than half the effort. 2-Tnqgdvuqo-yfhanp does ALL the effort. Patient does none of the effort to complete the activity. Or, the assistance of 2 or more helpers is required for the patient to complete the activity. If activity was not attempted, code reason: 7-Patient Refused. 9-Not Applicable-not attempted and the patient did not perform the activity before the current illness, exacerbation or injury. 10-Not Attempted due to Environmental Limitations-(lack of equipment, weather restraints, etc.). 88-Not Attempted due to Medical Conditions or Safety Concerns. Sit to Stand (QC): 4 Weight Bearing Right Lower Extremity: Right Weight Bearing/Tolerated Left Lower Extremity: Left Weight Bearing/Tolerated Left WBAT with knee immobilizer. Gait Training Does the Patient Walk?: Yes Distance: 25' Walk 10 feet (QC): 4 Gait Persons Needed: 1 Gait Assistive Device: Walker Platform Wheelchair Training Does the Pt Use a Wheelchair?: Yes Wheel 50 ft with 2 turns (QC): 6 Wheel 150 ft (QC): 6 Type of Wheelchair: Manual Exercises Seated Therapy Exercises: Ankle pumps, Long arc quads, Hip flexion, Hip a bd/add, Glut set Seated Reps: 15 Standing: Marching Standing Reps: 10 NuStep Minutes: 15 NuStep Workload: 5 Treatments TF to standing and declines need for BR or BSC. Pt propels WCH in hallway and to Therapy Gym. Pt uses NuStep for 15m at WL 5. Pt then amb. to //bars and completes Marching at //bars. Pt takes RB then completes Seated EX. After RB, Pt propels WCH in hallway and to room. ELIZABETH hoses applied to R LE only pre pt request. Nurse notified. Pt is assisted with repositioning in recliner to comfort. All needs met, call light in hand. Assessment Current Status: Fair Progress Pt take extended time with standing Marching in //bars as it is difficult to weight shift to R side for lifting L LE. Pt reports numbness in R LE. ELIZABETH hoses applied to R LE only as requested by pt. Nurse notified. PT Ripsaw Operator Goals Penitentiary Goals PT Penitentiary Goals Time Frame: Jun 22, 2021 Roll Left & Right (QC): 6 Sit to Lying (QC): 6 Lying-Sitting on Side/Bed(QC): 6 Sit to Stand (QC): 6 Chair/Gmc-cm-Gchri Xfer(QC): 6 Toilet Transfer (QC): 6 Car Transfer (QC): 6 Does the Patient Walk: Yes Walk 10 feet (QC): 6 Walk 50ft with 2 Turns (QC): 6 Walk 150 ft (QC): 6 Walking 10ft on Uneven Surface: 6 1 Step (curb) (QC): 6 4 Steps (QC): 6 12 Steps (QC): 6 Picking up an Object (QC): 6 Does the Pt use WC or Scooter?: No Wheel 50 feet with 2 turns (QC: 9 Type: N/A Wheel 150 feet: 9 Type: N/A PT Plan Problem List Problem List: Activity Tolerance, Functional Strength Treatment/Plan Treatment Plan: Continue Plan of Care Treatment Plan: Bed Mobility, Concurrent Therapy, Education, Functional Activity Johanne, Functional Strength, Group Therapy, Gait, Safety, Therapeutic Exercise, Transfers Treatment Duration: Jun 22, 2021 Frequency: At least 5 of 7 days/Wk (IRF) Estimated Hrs Per Day: 1.5 hours per day Patient and/or Family Agrees t: Yes Safety Risks/Education Patient Education: Gait Training, Correct Positioning Teaching Recipient: Patient Teaching Methods: Discussion Response to Teaching: Verbalize Understanding Time/GCodes Time In: 1000 Time Out: 1130 Total Billed Treatment Time: 90 Total Billed Treatment 1, EX x3 (40m), WCH (20m) & FA x2 (30m) MURRAY LICONA SCALE ATTENDANT May 29, 2021 11:50
[2021-05-29 20:00] VITALS: BP 144/74
[2021-05-29] MEDS: amLODIPine 10 MG (NORVASC) TAB PO SCH (20:40)
[2021-05-30] MEDS: ENOXAPARIN 60 MG/0.6 ML (LOVENOX) SYR SC SCH ×2 (05:04→17:50)
[2021-05-30 07:45] VITALS: BP 119/75
[2021-05-30] MEDS: LOSARTAN 100 MG (COZAAR) TABLET PO SCH (08:02)
[2021-05-30] MEDS: LACTOBACILLUS ACIDOPHILUS (PROBIOTIC) CAPSULE PO SCH ×2 (08:02→17:50)
[2021-05-30] MEDS: DOCUSATE SODIUM 100 MG (COLACE) CAP PO SCH ×2 (08:02→21:54)
[2021-05-30] MEDS: metFORMIN 500 MG (GLUCOPHAGE) TAB PO SCH ×2 (08:03→17:50)
[2021-05-30] MEDS: SENNA W/DOCUSATE (SENOKOT S) TABLET PO SCH ×2 (08:03→21:53)
--- NOTE | 2021-05-30 08:31 | Occupational Ther Daily Note ---
OT Current Status-Daily Note Subjective Pt supine in bed, alert. No c/o pain. Pt agrees to therapy. Mental Status/Objective Patient Orientation: Person, Place, Time, Situation Attachments: Other-See Comments (finger splint, knee brace) ADL-Treatment Pt EOB->w/c using platform FWW for stability CGA. Pt propelled w/c to bathroom sink to complete oral care. Therapy Code Descriptions/Definitions Functional [place] Measure: 0=Not Assessed/NA 4=Minimal Assistance 1=Total Assistance 5=Supervision or Setup 2=Maximal Assistance 6=Modified [place] 3=Moderate Assistance 7=Complete IndependenceSCALE: Activities may be completed with or without assistive devices. 6-Ealpiunept-tibtubt completes the activity by him/herself with no assistance from a helper. 5-Set-up or Clean-up Assistance-helper sets up or cleans up; patient completes activity. [place] assists only prior to or following the activity. 4-Supervision or Touching Assistance-helper provides verbal cues and/or touching/steadying and/or contact guard assistance as patient completes activity. Assistance may be provided throughout the activity or intermittently. 3-Partial/Moderate Assistance-helper does LESS THAN HALF the effort. [place] lifts, holds or supports trunk or limbs, but provides less than half the effort. 2-Substantial/Maximal Assistance-helper does MORE THAN HALF the effort. [place] lifts or holds trunk or limbs and provides more than half the effort. 4-Pcdtkipnz-nuwhxj does ALL the effort. Patient does none of the effort to complete the activity. Or, the assistance of 2 or more helpers is required for the patient to complete the activity. If activity was not attempted, code reason: 7-Patient Refused. 9-Not Applicable-not attempted and the patient did not perform the activity before the current illness, exacerbation or injury. 10-Not Attempted due to Environmental Limitations-(lack of equipment, weather restraints, etc.). 88-Not Attempted due to Medical Conditions or Safety Concerns. Upper Body Dressing (QC): 5 (Pt able to don shirt while seated EOB with supplies gathered.) Other Treatment PT/OT co treat ([id number]) with pt. 2 clinicians required for skilled treatment to decrease fall risk, increase mobility and activity tolerance. PT focused on mobility. OT focused on balance and ADLs. Pt used sock aide and supervisor advertising dispatch clerks to doff/don R sock and R shoe while seated in w/c. Max A given to don L sock and shoe and to tie shoe strings. Pt propelled w/c from room to jewell. Pt transferred w/c-> platform walker CGA. Pt able to ambulate 3/4 around [facility] before requiring recovery break. See PT notes on mobility progress. Pt left in care of PT. All needs met. OT Short Term Goals Short Term Goals Time Frame: Jun 05, 2021 Oral hygiene: 5 Toileting hygiene: 4 Shower/bathe self: 4 Upper body dressin Lower body dressin Putting on/taking off footwear: 4 OT Penitentiary Goals Penitentiary Goals Time Frame: Jun 21, 2021 Eating (QC): 6 Oral Hygiene (QC): 6 Toileting Hygiene (QC): 6 Shower/Bathe Self (QC): 6 Upper Body Dressing (QC): 6 Lower Body Dressing (QC): 6 On/Off Footwear (QC): 6 Additional Goals: 1-Demonstrate ADL Tasks, 2-Verbalize Understanding, 3- ImproveStrength/Johanne 1=Demonstrate adherence to instructed precautions during ADL tasks. 2=Patient will verbalize/demonstrate understanding of assistive devices/modifications for ADL. 3=Patient will improve strength/tolerance for activity to enable patient to perform ADL's. OT Education/Plan Problem List/Assessment Assessment: Impaired Funct Balance, Impaired Self-Care Skills Discharge Recommendations Plan/Recommendations: Continue POC Treatment Plan/Plan of Care Patient would benefit from OT for education, treatment and training to promote independence in ADL's, mobility, safety and/or upper extremity function for ADL's. Plan of Care: ADL Retraining, Functional Mobility, Group Exercise/Act as Ind, UE Funct Exercise/Act Treatment Duration: Jun 21, 2021 Frequency: At least 5 of 7 days/Wk (IRF) Estimated Hrs Per Day: 1.5 hours per day Agreement: Yes Rehab Potential: Good Time/GCodes Start Time: 07:30 Stop Time: 08:30 Total Time Billed (hr/min): 60 Billed Treatment Time 1 Visit- ADL 2 (30 min) FA 2 (30 min) [place] with PT [id number] individual [id number] MARÍA GIRARD May 30, 2021 08:31
--- NOTE | 2021-05-30 09:00 | Physical Therapy Daily Note ---
PT Daily Note-Current Subjective Pt. agrees to Rx. States he has nerve pain in right hip and distal. Pt. wants to try steps "but not today" Pain Numeric Pain Scale: 5-Moderate Pain Location: Right Location Body Site: Hip Pain Description: Ache, Tingling Mental Status Patient Orientation: Normal For Age Attachments: Other-See Comments (knee immob left) Transfers SCALE: Activities may be completed with or without assistive devices. 0-Gscmnbrewd-uoozflv completes the activity by him/herself with no assistance from a helper. 5-Set-up or Clean-up Assistance-helper sets up or cleans up; patient completes activity. [place] assists only prior to or following the activity. 4-Supervision or Touching Assistance-helper provides verbal cues and/or touching/steadying and/or contact guard assistance as patient completes activity. Assistance may be provided throughout the activity or intermittently. 3-Partial/Moderate Assistance-helper does LESS THAN HALF the effort. [place] lifts, holds or supports trunk or limbs, but provides less than half the effort. 2-Substantial/Maximal Assistance-helper does MORE THAN HALF the effort. [place] lifts or holds trunk or limbs and provides more than half the effort. 6-Beezxwpbb-ylbwnn does ALL the effort. Patient does none of the effort to complete the activity. Or, the assistance of 2 or more helpers is required for the patient to complete the activity. If activity was not attempted, code reason: 7-Patient Refused. 9-Not Applicable-not attempted and the patient did not perform the activity before the current illness, exacerbation or injury. 10-Not Attempted due to Environmental Limitations-(lack of equipment, weather restraints, etc.). 88-Not Attempted due to Medical Conditions or Safety Concerns. Roll Left & Right (QC): 6 Sit to Lying (QC): 6 Lying to Sitting/Side of Bed(Q: 6 Sit to Stand (QC): 5 Chair/Jlh-ns-Aiskq Xfer(QC): 5 instructed pt to attempt sit to stand TRFs using both hands on arms of chair vs one on FWW trough and other on chair, this was much more stable , pt able to do this 5/5 trials Weight Bearing Right Lower Extremity: Right Weight Bearing/Tolerated Left Lower Extremity: Left Weight Bearing/Tolerated Left WBAT with knee immobilizer. Gait Training Does the Patient Walk?: Yes Walk 10 feet (QC): 5 Walk 50 ft with 2 Turns(QC): 5 Gait Persons Needed: 1 Gait Assistive Device: Walker Platform w/c to f/u. good step length, reciprocating well, heavy wt bearing on FWW Wheelchair Training pt. indep in w/c training. Exercises Supine Ex: Ankle pumps, Quad Set, Rolling, Glut sets, Heel Slides, Short Arc Quads, Scooting, Straight leg raise, Hip abd/add Supine Reps: 15 (assisted on right) Seated Therapy Exercises: Sit to stand Seated Reps: 12 Treatments co Rx with OT 800 to 830 for gait and TRFs coordinating UE skills as well as pt donning shoes and sock which did increase stability of gait with shoes on Assessment Current Status: Good Progress increased gait dist, increased sit to stand stability, PT Bomb Squad Officer Goals Sn[place] Goals PT Bomb Squad Officer Goals Time Frame: Jun 22, 2021 Roll Left & Right (QC): 6 Sit to Lying (QC): 6 Lying-Sitting on Side/Bed(QC): 6 Sit to Stand (QC): 6 Chair/Mpt-by-Mpdpa Xfer(QC): 6 Toilet Transfer (QC): 6 Car Transfer (QC): 6 Does the Patient Walk: Yes Walk 10 feet (QC): 6 Walk 50ft with 2 Turns (QC): 6 Walk 150 ft (QC): 6 Walking 10ft on Uneven Surface: 6 1 Step (curb) (QC): 6 4 Steps (QC): 6 12 Steps (QC): 6 Picking up an Object (QC): 6 Does the Pt use WC or Scooter?: No Wheel 50 feet with 2 turns (QC: 9 Type: N/A Wheel 150 feet: 9 Type: N/A PT Plan Treatment/Plan Treatment Plan: Continue Plan of Care Treatment Plan: Bed Mobility, Concurrent Therapy, Education, Functional Activity Johanne, Functional Strength, Group Therapy, Gait, Safety, Therapeutic Exercise, Transfers Treatment Duration: Jun 22, 2021 Frequency: At least 5 of 7 days/Wk (IRF) Estimated Hrs Per Day: 1.5 hours per day Patient and/or Family Agrees t: Yes Safety Risks/Education Patient Education: Gait Training, Transfer Techniques, Correct Positioning, Disease Process, Safety Issues Teaching Recipient: Patient Teaching Methods: Demonstration, Discussion Response to Teaching: Verbalize Understanding, Return Demonstration, Reinforcement Needed Time/GCodes Time In: 800 Time Out: 900 Total Billed Treatment Time: 60 Total Billed Treatment 1,GT25m,FA15m,EX20m ELIA MARTIN YOUTH COUNSELOR May 30, 2021 09:00
[2021-05-30] MEDS: SENNOSIDES 8.6 MG (SENOKOT) TAB PO SCH (09:30)
[2021-05-30] MEDS: polyethylene glycoL POWDER 17 GM (MIRALAX) PACK PO SCH ×2 (09:30→21:54)
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
--- NOTE | 2021-05-30 14:29 | Therapy Group Daily Note ---
Therapy Daily Group Note Patient Education Topic Other List Below Exercises LE Seated Exercise, UE Exercise Session Ratio (pt:therapist): 4:1 Goal of Session: Education on ARU Expectations, UE/LE Strengthing, Safety with Transfers, Use of Adaptive Equipment Goal Met for this Session: Yes Pt Benefit of Group: Contributions to Others, F/U Use of Strategies @Home, Increased Functional Safety, Increased Functional Strength, Improved Cognition, Recognition of Peers, Socialization Other/Notes Pt ambulated to [facility] area for OT group. Group consisted of introductions(name, place living, random questions), socialization, seated B UE/LE exercises lead by therapist/peers and educational topics of bed mobility, use of hospital bed and tub transfers (SC,tub transfer bench). Pt introduced self appropriately and actively listened to peers. Pt able to complete B UE exercises, limited AROM with B LE's. Pt acknowledged understanding of educational topics by actively listening and nodding head in affirmation. After session, pt sitting in recliner with call light/phone in reach. All needs met i n room. Start Time: 13:00 Stop Time: 14:00 Total Billed Treatment Time: 60 Total Billed Treatment 1-GRP MARÍA GIRARD May 30, 2021 14:29
[2021-05-30 20:00] VITALS: BP 129/75
[2021-05-30] MEDS: amLODIPine 10 MG (NORVASC) TAB PO SCH (21:53)
[2021-05-31] MEDS: ENOXAPARIN 60 MG/0.6 ML (LOVENOX) SYR SC SCH ×2 (05:41→17:01)
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
[2021-05-31 07:27] VITALS: BP 131/73
[2021-05-31] MEDS: SENNA W/DOCUSATE (SENOKOT S) TABLET PO SCH ×2 (07:52→20:55)
[2021-05-31] MEDS: LACTOBACILLUS ACIDOPHILUS (PROBIOTIC) CAPSULE PO SCH ×2 (07:52→17:01)
[2021-05-31] MEDS: DOCUSATE SODIUM 100 MG (COLACE) CAP PO SCH ×2 (07:52→20:54)
[2021-05-31] MEDS: metFORMIN 500 MG (GLUCOPHAGE) TAB PO SCH ×2 (07:52→17:01)
[2021-05-31] MEDS: LOSARTAN 100 MG (COZAAR) TABLET PO SCH (07:52)
--- NOTE | 2021-05-31 08:16 | Occupational Ther Daily Note ---
OT Current Status-Daily Note Subjective Pt supine in bed with HOB raised, alert. No c/o pain. Pt agrees to therapy. Mental Status/Objective Patient Orientation: Person, Place, Time, Situation Attachments: Other-See Comments (knee brace, finger splint) ADL-Treatment Pt agrees to shower. EOB->w/c using platform FWW for stability CGA. Pt doffed knee brace and socks using bar machine operator while seated in w/c. Pt propelled to shower, w/c<->shower bench using grabbars for stability CGA. Pt propelled to sink to complete oral care after dressing. Pt put in contact lenses while seated in w/c. Due to time constraints assist to don socks and threading pants over ankles by self while seated then min A given to hike pants over hips and don knee brace. Therapy Code Descriptions/Definitions Functional [place] Measure: 0=Not Assessed/NA 4=Minimal Assistance 1=Total Assistance 5=Supervision or Setup 2=Maximal Assistance 6=Modified [place] 3=Moderate Assistance 7=Complete IndependenceSCALE: Activities may be completed with or without assistive devices. 4-Bacvlsmrim-xpaealn completes the activity by him/herself with no assistance from a helper. 5-Set-up or Clean-up Assistance-helper sets up or cleans up; patient completes activity. [place] assists only prior to or following the activity. 4-Supervision or Touching Assistance-helper provides verbal cues and/or touching/steadying and/or contact guard assistance as patient completes activity. Assistance may be provided throughout the activity or intermittently. 3-Partial/Moderate Assistance-helper does LESS THAN HALF the effort. [place] lifts, holds or supports trunk or limbs, but provides less than half the effort. 2-Substantial/Maximal Assistance-helper does MORE THAN HALF the effort. [place] lifts or holds trunk or limbs and provides more than half the effort. 5-Exfbangxt-ydrpny does ALL the effort. Patient does none of the effort to complete the activity. Or, the assistance of 2 or more helpers is required for the patient to complete the activity. If activity was not attempted, code reason: 7-Patient Refused. 9-Not Applicable-not attempted and the patient did not perform the activity before the current illness, exacerbation or injury. 10-Not Attempted due to Environmental Limitations-(lack of equipment, weather restraints, etc.). 88-Not Attempted due to Medical Conditions or Safety Concerns. Eating (QC): 6 (Pt opens containers and uses regular utensils to complete task.) Oral Hygiene (QC): 6 (Pt completes by self.) Bathing Location: L Arm, R Arm, L Upper Leg, R Upper Leg, L Lower Leg (including foot), R Lower Leg (including foot), Chest, Abdomen, Buttocks, Perineal Area Shower/Bathe Self (QC): 6 (Pt able to complete while seated on BS using LHS, handheld shower, and grabbars.) Upper Body Dressing (QC): 5 (Pt completes with supplies gathered.) OT Short Term Goals Short Term Goals Time Frame: Jun 05, 2021 Oral hygiene: 5 Toileting hygiene: 4 Shower/bathe self: 4 Upper body dressin Lower body dressin Putting on/taking off footwear: 4 OT Prison Goals Prison Goals Time Frame: Jun 21, 2021 Eating (QC): 6 Oral Hygiene (QC): 6 Toileting Hygiene (QC): 6 Shower/Bathe Self (QC): 6 Upper Body Dressing (QC): 6 Lower Body Dressing (QC): 6 On/Off Footwear (QC): 6 Additional Goals: 1-Demonstrate ADL Tasks, 2-Verbalize Understanding, 3- ImproveStrength/Johanne 1=Demonstrate adherence to instructed precautions during ADL tasks. 2=Patient will verbalize/demonstrate understanding of assistive devices /modifications for ADL. 3=Patient will improve strength/tolerance for activity to enable patient to perform ADL's. OT Education/Plan Problem List/Assessment Assessment: Impaired Funct Balance, Impaired Self-Care Skills Discharge Recommendations Plan/Recommendations: Continue POC Treatment Plan/Plan of Care Patient would benefit from OT for education, treatment and training to promote independence in ADL's, mobility, safety and/or upper extremity function for ADL's. Plan of Care: ADL Retraining, Functional Mobility, Group Exercise/Act as Ind, UE Funct Exercise/Act Treatment Duration: Jun 21, 2021 Frequency: At least 5 of 7 days/Wk (IRF) Estimated Hrs Per Day: 1.5 hours per day Agreement: Yes Rehab Potential: Good Time/GCodes Start Time: 07:00 Stop Time: 08:30 Total Time Billed (hr/min): 90 Billed Treatment Time 1 Visit- ADL 6 (90 min) MARÍA GIRARD May 31, 2021 08:16
--- NOTE | 2021-05-31 11:53 | Physical Therapy Daily Note ---
PT Daily Note-Current Subjective Patient in recliner pre tx, agrees to PT, voices no complaints of pain at rest. Patient wants his shoes on, dependent for that. Appearance Patient in recliner post tx with nurse call, phone, tray, all needs met. Mental Status Patient Orientation: Person, Place, Situation left leg brace Transfers SCALE: Activities may be completed with or without assistive devices. 2-Mneazhqgta-gthoxoo completes the activity by him/herself with no assistance from a helper. 5-Set-up or Clean-up Assistance-helper sets up or cleans up; patient completes activity. [place] assists only prior to or following the activity. 4-Supervision or Touching Assistance-helper provides verbal cues and/or touching/steadying and/or contact guard assistance as patient completes activity. Assistance may be provided throughout the activity or intermittently. 3-Partial/Moderate Assistance-helper does LESS THAN HALF the effort. [place] lifts, holds or supports trunk or limbs, but provides less than half the effort. 2-Substantial/Maximal Assistance-helper does MORE THAN HALF the effort. [place] lifts or holds trunk or limbs and provides more than half the effort. 3-Loewtccul-fzhccv does ALL the effort. Patient does none of the effort to complete the activity. Or, the assistance of 2 or more helpers is required for the patient to complete the activity. If activity was not attempted, code reason: 7-Patient Refused. 9-Not Applicable-not attempted and the patient did not perform the activity before the current illness, exacerbation or injury. 10-Not Attempted due to Environmental Limitations-(lack of equipment, weather restraints, etc.). 88-Not Attempted due to Medical Conditions or Safety Concerns. Sit to Stand (QC): 4 Chair/Svx-cv-Ekuzn Xfer(QC): 4 Weight Bearing Right Lower Extremity: Right Weight Bearing/Tolerated Left Lower Extremity: Left Weight Bearing/Tolerated Left WBAT with knee immobilizer. Gait Training Distance: 60'x2, 20', 120' Walk 10 feet (QC): 4 Walk 50 ft with 2 Turns(QC): 4 Gait Persons Needed: 1 Gait Assistive Device: Walker Platform slow, leans heavily on walker, slumped posture Exercises LAQ alternating for 5 min NuStep Minutes: 15 NuStep Workload: 5 Treatments transfers, ambulation, functional strengthening Assessment Current Status: Fair Progress improving ambulation PT Shelter Goals Shelter Goals PT Duct Layer Helper Goals Time Frame: Jun 22, 2021 Roll Left & Right (QC): 6 Sit to Lying (QC): 6 Lying-Sitting on Side/Bed(QC): 6 Sit to Stand (QC): 6 Chair/Czd-ve-Mhfac Xfer(QC): 6 Toilet Transfer (QC): 6 Car Transfer (QC): 6 Does the Patient Walk: Yes Walk 10 feet (QC): 6 Walk 50ft with 2 Turns (QC): 6 Walk 150 ft (QC): 6 Walking 10ft on Uneven Surface: 6 1 Step (curb) (QC): 6 4 Steps (QC): 6 12 Steps (QC): 6 Picking up an Object (QC): 6 Does the Pt use WC or Scooter?: No Wheel 50 feet with 2 turns (QC: 9 Type: N/A Wheel 150 feet: 9 Type: N/A PT Plan Problem List Problem List: Activity Tolerance, Functional Strength, Safety, Balance, Gait, Transfer, Bed Mobility, ROM Treatment/Plan Treatment Plan: Continue Plan of Care Treatment Plan: Bed Mobility, Concurrent Therapy, Education, Functional Activity Johanne, Functional Strength, Group Therapy, Gait, Safety, Therapeutic Exercise, Transfers Treatment Duration: Jun 22, 2021 Frequency: At least 5 of 7 days/Wk (IRF) Estimated Hrs Per Day: 1.5 hours per day Patient and/or Family Agrees t: Yes Safety Risks/Education Patient Education: Gait Training, Transfer Techniques, Correct Positioning, Safety Issues Teaching Recipient: Patient Teaching Methods: Demonstration, Discussion Response to Teaching: Reinforcement Needed Time/GCodes Time In: 1100 Time Out: 1200 Total Billed Treatment Time: 60 Total Billed Treatment 1 visit EX 20' FA 40' RACHEL BARBOZA PT May 31, 2021 11:53
[2021-05-31] MEDS: SENNOSIDES 8.6 MG (SENOKOT) TAB PO SCH (12:28)
[2021-05-31] MEDS: polyethylene glycoL POWDER 17 GM (MIRALAX) PACK PO SCH ×2 (12:28→20:57)
--- NOTE | 2021-05-31 14:50 | Physical Therapy Daily Note ---
PT Daily Note-Current Subjective Patient in recliner pre tx, agrees to PT, has 5/10 pain in right knee. Appearance Patient in recliner post tx with nurse call, phone, tray, all needs met. Mental Status Patient Orientation: Person, Place, Situation Transfers SCALE: Activities may be completed with or without assistive devices. 5-Ceirdxdxtk-vnevcor completes the activity by him/herself with no assistance from a helper. 5-Set-up or Clean-up Assistance-helper sets up or cleans up; patient completes activity. [place] assists only prior to or following the activity. 4-Supervision or Touching Assistance-helper provides verbal cues and/or t ouching/steadying and/or contact guard assistance as patient completes activity. Assistance may be provided throughout the activity or intermittently. 3-Partial/Moderate Assistance-helper does LESS THAN HALF the effort. [place] lifts, holds or supports trunk or limbs, but provides less than half the effort. 2-Substantial/Maximal Assistance-helper does MORE THAN HALF the effort. [place] lifts or holds trunk or limbs and provides more than half the effort. 2-Keoahlxkw-pyieug does ALL the effort. Patient does none of the effort to complete the activity. Or, the assistance of 2 or more helpers is required for the patient to complete the activity. If activity was not attempted, code reason: 7-Patient Refused. 9-Not Applicable-not attempted and the patient did not perform the activity before the current illness, exacerbation or injury. 10-Not Attempted due to Environmental Limitations-(lack of equipment, weather restraints, etc.). 88-Not Attempted due to Medical Conditions or Safety Concerns. Sit to Stand (QC): 4 Chair/Ivx-ym-Rlicr Xfer(QC): 4 Weight Bearing Right Lower Extremity: Right Weight Bearing/Tolerated Left Lower Extremity: Left Weight Bearing/Tolerated Left WBAT with knee immobilizer. Gait Training Distance: 120'x2 Walk 10 feet (QC): 4 Walk 50 ft with 2 Turns(QC): 4 Walk 150 ft (QC): 4 Gait Persons Needed: 1 Gait Assistive Device: Walker Platform CGA, slow ambulation, leans heavily on walker, slumped posture Exercises Seated Therapy Exercises: Ankle pumps, Long arc quads, Hip flexion, Hip abd/add (with ball and RTB) Treatments transfers, ambulation, LE strengthening Assessment Current Status: Fair Progress improving ambulation and endurance PT Alf Goals Alf Goals PT Burial Vault Maker Goals Time Frame: Jun 22, 2021 Roll Left & Right (QC): 6 Sit to Lying (QC): 6 Lying-Sitting on Side/Bed(QC): 6 Sit to Stand (QC): 6 Chair/Fou-fc-Sypal Xfer(QC): 6 Toilet Transfer (QC): 6 Car Transfer (QC): 6 Does the Patient Walk: Yes Walk 10 feet (QC): 6 Walk 50ft with 2 Turns (QC): 6 Walk 150 ft (QC): 6 Walking 10ft on Uneven Surface: 6 1 Step (curb) (QC): 6 4 Steps (QC): 6 12 Steps (QC): 6 Picking up an Object (QC): 6 Does the Pt use WC or Scooter?: No Wheel 50 feet with 2 turns (QC: 9 Type: N/A Wheel 150 feet: 9 Type: N/A PT Plan Problem List Problem List: Activity Tolerance, Functional Strength, Safety, Balance, Gait, Transfer, Bed Mobility, ROM Treatment/Plan Treatment Plan: Continue Plan of Care Treatment Plan: Bed Mobility, Concurrent Therapy, Education, Functional Activity Johanne, Functional Strength, Group Therapy, Gait, Safety, Therapeutic Exercise, Transfers Treatment Duration: Jun 22, 2021 Frequency: At least 5 of 7 days/Wk (IRF) Estimated Hrs Per Day: 1.5 hours per day Patient and/or Family Agrees t: Yes Safety Risks/Education Patient Education: Gait Training, Transfer Techniques, Correct Positioning, Safety Issues Teaching Recipient: Patient Teaching Methods: Demonstration, Discussion Response to Teaching: Reinforcement Needed Time/GCodes Time In: 1420 Time Out: 1450 Total Billed Treatment Time: 30 Total Billed Treatment 1 visit EX 10' FA 20' RACHEL BARBOZA PT May 31, 2021 14:50
[2021-05-31 20:00] VITALS: BP 129/76
[2021-05-31] MEDS: amLODIPine 10 MG (NORVASC) TAB PO SCH (20:55)
[2021-06-01] MEDS: ENOXAPARIN 60 MG/0.6 ML (LOVENOX) SYR SC SCH ×2 (06:34→17:11)
[2021-06-01 07:30] VITALS: BP 132/82
[2021-06-01] MEDS: DOCUSATE SODIUM 100 MG (COLACE) CAP PO SCH ×2 (08:27→20:19)
[2021-06-01] MEDS: metFORMIN 500 MG (GLUCOPHAGE) TAB PO SCH ×2 (08:27→17:11)
[2021-06-01] MEDS: LOSARTAN 100 MG (COZAAR) TABLET PO SCH (08:27)
[2021-06-01] MEDS: LACTOBACILLUS ACIDOPHILUS (PROBIOTIC) CAPSULE PO SCH ×2 (08:27→17:11)
--- NOTE | 2021-06-01 09:08 | Physical Therapy Daily Note ---
PT Daily Note-Current Subjective Pt laying Supine in bed upon arrival. Pt agrees to PT. Pain Location: Right Location Body Site: Knee Pain Description: Tightness Mental Status Patient Orientation: Person, Place, Time, Situation Attachments: Knee Immobilizer Transfers SCALE: Activities may be completed with or without assistive devices. 8-Vynygozmfw-eesiubt completes the activity by him/herself with no assistance fr om a helper. 5-Set-up or Clean-up Assistance-helper sets up or cleans up; patient completes activity. [place] assists only prior to or following the activity. 4-Supervision or Touching Assistance-helper provides verbal cues and/or touching/steadying and/or contact guard assistance as patient completes activity. Assistance may be provided throughout the activity or intermittently. 3-Partial/Moderate Assistance-helper does LESS THAN HALF the effort. [place] lifts, holds or supports trunk or limbs, but provides less than half the effort. 2-Substantial/Maximal Assistance-helper does MORE THAN HALF the effort. [place] lifts or holds trunk or limbs and provides more than half the effort. 5-Ljithkywd-icglxw does ALL the effort. Patient does none of the effort to complete the activity. Or, the assistance of 2 or more helpers is required for the patient to complete the activity. If activity was not attempted, code reason: 7-Patient Refused. 9-Not Applicable-not attempted and the patient did not perform the activity before the current illness, exacerbation or injury. 10-Not Attempted due to Environmental Limitations-(lack of equipment, weather restraints, etc.). 88-Not Attempted due to Medical Conditions or Safety Concerns. Lying to Sitting/Side of Bed(Q: 5 Sit to Stand (QC): 5 Weight Bearing Right Lower Extremity: Right Weight Bearing/Tolerated Left Lower Extremity: Left Weight Bearing/Tolerated Left WBAT with knee immobilizer. Gait Training Does the Patient Walk?: Yes Distance: 150' Walk 10 feet (QC): 4 Walk 50 ft with 2 Turns(QC): 4 Walk 150 ft (QC): 4 Gait Persons Needed: 1 Gait Assistive Device: Walker Platform Treatments TF Supine to EOB then METAPHYSICIST assists w/donning R LE ELIZABETH hose followed by socks and shoes. TF to standing and amb. in hallway. Pt takes RB then continues amb. before returning to room to rest in recliner. Pt given ice packs and all needs met, call light in hand. Assessment Current Status: Good Progress Pt needs encouragement to continue to work while talking as pt can take extended RB. PT Pharmacist Aide Goals Pharmacist Aide Goals PT Custodial Goals Time Frame: Jun 22, 2021 Roll Left & Right (QC): 6 Sit to Lying (QC): 6 Lying-Sitting on Side/Bed(QC): 6 Sit to Stand (QC): 6 Chair/Bkq-em-Leqaw Xfer(QC): 6 Toilet Transfer (QC): 6 Car Transfer (QC): 6 Does the Patient Walk: Yes Walk 10 feet (QC): 6 Walk 50ft with 2 Turns (QC): 6 Walk 150 ft (QC): 6 Walking 10ft on Uneven Surface: 6 1 Step (curb) (QC): 6 4 Steps (QC): 6 12 Steps (QC): 6 Picking up an Object (QC): 6 Does the Pt use WC or Scooter?: No Wheel 50 feet with 2 turns (QC: 9 Type: N/A Wheel 150 feet: 9 Type: N/A PT Plan Problem List Problem List: Activity Tolerance, Functional Strength Treatment/Plan Treatment Plan: Continue Plan of Care Treatment Plan: Bed Mobility, Concurrent Therapy, Education, Functional Activity Johanne, Functional Strength, Group Therapy, Gait, Safety, Therapeutic Ex ercise, Transfers Treatment Duration: Jun 22, 2021 Frequency: At least 5 of 7 days/Wk (IRF) Estimated Hrs Per Day: 1.5 hours per day Patient and/or Family Agrees t: Yes Safety Risks/Education Patient Education: Gait Training, Correct Positioning Teaching Recipient: Patient Teaching Methods: Discussion Response to Teaching: Verbalize Understanding Time/GCodes Time In: 750 Time Out: 820 Total Billed Treatment Time: 30 Total Billed Treatment 1, FA (15m) & GT (15m) MURRAY LICONA METAPHYSICIST Jun 01, 2021 09:08
[2021-06-01] MEDS: SENNOSIDES 8.6 MG (SENOKOT) TAB PO SCH (09:48)
[2021-06-01] MEDS: polyethylene glycoL POWDER 17 GM (MIRALAX) PACK PO SCH ×2 (09:48→19:36)
[2021-06-01] MEDS: SENNA W/DOCUSATE (SENOKOT S) TABLET PO SCH ×2 (09:48→20:19)
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
[2021-06-01 19:19] VITALS: BP 134/67
[2021-06-01] MEDS: amLODIPine 10 MG (NORVASC) TAB PO SCH (20:19)
[2021-06-02] MEDS: ENOXAPARIN 60 MG/0.6 ML (LOVENOX) SYR SC SCH ×2 (06:35→17:26)
[2021-06-02 07:30] VITALS: BP 131/82
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
[2021-06-02] MEDS: SENNA W/DOCUSATE (SENOKOT S) TABLET PO SCH ×2 (07:48→19:41)
[2021-06-02] MEDS: LACTOBACILLUS ACIDOPHILUS (PROBIOTIC) CAPSULE PO SCH ×2 (07:48→17:26)
[2021-06-02] MEDS: DOCUSATE SODIUM 100 MG (COLACE) CAP PO SCH ×2 (07:48→19:41)
[2021-06-02] MEDS: metFORMIN 500 MG (GLUCOPHAGE) TAB PO SCH ×2 (07:48→17:26)
[2021-06-02] MEDS: LOSARTAN 100 MG (COZAAR) TABLET PO SCH (07:48)
[2021-06-02] MEDS: polyethylene glycoL POWDER 17 GM (MIRALAX) PACK PO SCH ×3 (09:41→22:31)
[2021-06-02] MEDS: SENNOSIDES 8.6 MG (SENOKOT) TAB PO SCH ×2 (09:42→22:31)
[2021-06-02] MEDS: amLODIPine 10 MG (NORVASC) TAB PO SCH (19:41)
[2021-06-02 20:00] VITALS: BP 125/64
[2021-06-03 05:48] LABS: BASOPHILS # (AUTO) 0.1 10^3/uL (0.0-0.1); BASOPHILS % (AUTO) 1 % (0-10); EOSINOPHILS # (AUTO) 0.1 10^3/uL (0.0-0.3); EOSINOPHILS % (AUTO) 1 % (0-10); HEMATOCRIT 36 % (40-54); HEMOGLOBIN 11.2 g/dL (13.3-17.7); LYMPHOCYTES # (AUTO) 1.6 10^3/uL (1.0-4.0); LYMPHOCYTES % (AUTO) 19 % (12-44); MEAN CORPUSCULAR HEMOGLOBIN 28 pg (25-34); MEAN CORPUSCULAR HGB CONC 32 g/dL (32-36); MEAN CORPUSCULAR VOLUME 89 fL (80-99); MEAN PLATELET VOLUME 10.3 fL (9.0-12.2); MONOCYTES # (AUTO) 0.7 10^3/uL (0.0-1.0); MONOCYTES % (AUTO) 8 % (0-12); NEUTROPHILS # (AUTO) 5.6 10^3/uL (1.8-7.8); NEUTROPHILS % (AUTO) 70 % (42-75); PLATELET COUNT 499 10^3/uL (130-400); WHITE BLOOD COUNT 8.1 10^3/uL (4.3-11.0)
[2021-06-03 06:06] LABS: ALBUMIN 3.3 GM/DL (3.2-4.5)
[2021-06-03 06:07] LABS: POTASSIUM 3.8 MMOL/L (3.6-5.0)
[2021-06-03 06:08] LABS: CALCIUM 8.6 MG/DL (8.5-10.1)
[2021-06-03 06:09] LABS: TOTAL PROTEIN 6.5 GM/DL (6.4-8.2)
[2021-06-03 06:11] LABS: BILIRUBIN,TOTAL 0.7 MG/DL (0.1-1.0)
[2021-06-03 06:13] LABS: CREATININE SERUM 0.76 MG/DL (0.60-1.30)
[2021-06-03] MEDS: DOCUSATE SODIUM 100 MG (COLACE) CAP PO SCH ×2 (06:17→21:54)
[2021-06-03] MEDS: LOSARTAN 100 MG (COZAAR) TABLET PO SCH (06:17)
[2021-06-03] MEDS: LACTOBACILLUS ACIDOPHILUS (PROBIOTIC) CAPSULE PO SCH ×2 (06:17→17:19)
[2021-06-03] MEDS: SENNA W/DOCUSATE (SENOKOT S) TABLET PO SCH ×2 (06:17→21:54)
[2021-06-03] MEDS: metFORMIN 500 MG (GLUCOPHAGE) TAB PO SCH ×2 (06:17→17:19)
[2021-06-03] MEDS: ENOXAPARIN 60 MG/0.6 ML (LOVENOX) SYR SC SCH ×2 (06:17→17:18)
[2021-06-03 06:27] VITALS: BP 126/75
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
--- NOTE | 2021-06-03 07:42 | Occupational Ther Daily Note ---
OT Current Status-Daily Note Subjective Pt dozing in bed, woke easily to name. Pt has doctor's appointment this AM. Nrsg had brought pain pills prior to therapy this AM. Pt agrees to therapy. Mental Status/Objective Patient Orientation: Person, Place, Time, Situation Attachments: Knee Immobilizer ADL-Treatment 1st session(): Pt agrees to shower. Supine to EOB independent with HOB elevate. SBA using platform FWW to transfer from EOB to w/c. Pt propelled w/c to bathroom sink to complete grooming independently. CGA to transfer from w/c <--> BSC in shower. Pt able to complete shower in sitting on BSC using LHS(one for B LE and one for buttocks), grabbars and hand held shower independently. After set up, pt able to don/doff shirt by self. SBA while pt stabilized self to hike pants up/down over hips, pt able to thread feet into pants (knee immobilizer off) then pull up legs by self. Assist to don/doff knee immobilizer. Doffs socks by self then assist to place sock on sock aide and pt able to don socks with sock aide. Pt able to place toes into shoes then assist to slide heel into shoe and tie shoes. Will get pt elastic shoe laces in next session. Pt able to complete eating independently. After session, [employer] cabinet professional took pt to appointment. All needs met. 2nd session([id number]): Pt returned from appointment. New ulnar splint for L hand/5th digit and new knee immobilizer. Pt given elastic shoelaces to modify for footwear donning/doffing independence. Pt educated on using LH shoehorn and elastic shoelaces. Will have pt attempt to use for donning/doffing footwear in next session. After session, pt sitting in recliner with call light/phone in reach. All needs met in room. Therapy Code Descriptions/Definitions Functional [place] Measure: 0=Not Assessed/NA 4=Minimal Assistance 1=Total Assistance 5=Supervision or Setup 2=Maximal Assistance 6=Modified [place] 3=Moderate Assistance 7=Complete IndependenceSCALE: Activities may be completed with or without assistive devices. 6-Ycrkdjmsds-obnnqfs completes the activity by him/herself with no assistance from a helper. 5-Set-up or Clean-up Assistance-helper sets up or cleans up; patient completes activity. [place] assists only prior to or following the activity. 4-Supervision or Touching Assistance-helper provides verbal cues and/or touching/steadying and/or contact guard assistance as patient completes activity. Assistance may be provided throughout the activity or intermittently. 3-Partial/Moderate Assistance-helper does LESS THAN HALF the effort. [place] lifts, holds or supports trunk or limbs, but provides less than half the effort. 2-Substantial/Maximal Assistance-helper does MORE THAN HALF the effort. [place] lifts or holds trunk or limbs and provides more than half the effort. 3-Juqnrufsn-pogktg does ALL the effort. Patient does none of the effort to complete the activity. Or, the assistance of 2 or more helpers is required for the patient to complete the activity. If activity was not attempted, code reason: 7-Patient Refused. 9-Not Applicable-not attempted and the patient did not perform the activity before the current illness, exacerbation or injury. 10-Not Attempted due to Environmental Limitations-(lack of equipment, weather restraints, etc.). 88-Not Attempted due to Medical Conditions or Safety Concerns. Eating (QC): 6 Oral Hygiene (QC): 6 Shower/Bathe Self (QC): 6 (Sitting on BSC) Upper Body Dressing (QC): 5 Lower Body Dressing (QC): 4 On/Off Footwear: 2 (Assist to don/doff ELIZABETH hose) OT Short Term Goals Short Term Goals Time Frame: Jun 05, 2021 Oral hygiene: 5 Toileting hygiene: 4 Shower/bathe self: 4 Upper body dressin Lower body dressin Putting on/taking off footwear: 4 OT Opener Tender Goals Opener Tender Goals Time Frame: Jun 21, 2021 Eating (QC): 6 Oral Hygiene (QC): 6 Toileting Hygiene (QC): 6 Shower/Bathe Self (QC): 6 Upper Body Dressing (QC): 6 Lower Body Dressing (QC): 6 On/Off Footwear (QC): 6 Additional Goals: 1-Demonstrate ADL Tasks, 2-Verbalize Understanding, 3- ImproveStrength/Johanne 1=Demonstrate adherence to instructed precautions during ADL tasks. 2=Patient will verbalize/demonstrate understanding of assistive devices/modifications for ADL. 3=Patient will improve strength/tolerance for activity to enable patient to perform ADL's. OT Education/Plan Problem List/Assessment Assessment: Impaired Funct Balance, Impaired Self-Care Skills Discharge Recommendations Plan/Recommendations: Continue POC Treatment Plan/Plan of Care Patient would benefit from OT for education, treatment and training to promote independence in ADL's, mobility, safety and/or upper extremity function for ADL's. Plan of Care: ADL Retraining, Functional Mobility, Group Exercise/Act as Ind, UE Funct Exercise/Act Treatment Duration: Jun 21, 2021 Frequency: At least 5 of 7 days/Wk (IRF) Estimated Hrs Per Day: 1.5 hours per day Agreement: Yes Rehab Potential: Good Time/GCodes Start Time: 06:15 (1300) Stop Time: 07:30 (1315) Total Time Billed (hr/min): 90 Billed Treatment Time 1 visit([id number])- ADL 5 (75 min) 1 visit([id number])-FA 1 (15 min) MARÍA GIRARD Jun 03, 2021 07:42
--- NOTE | 2021-06-03 12:50 | Physical Therapy Progress Note ---
Therapy Progress Note Pt is out of facility in morning for doctor appointment. Pt will be seen for tx in afternoon as pt can tolerate. MURRAY LICONA WAITER/WAITRESS HEAD Jun 03, 2021 12:50
[2021-06-03] MEDS: CEPHALEXIN 250 MG (KEFLEX) CAP PO SCH ×3 (13:32→21:54)
--- NOTE | 2021-06-03 16:11 | Physical Therapy Daily Note ---
PT Daily Note-Current Subjective Pt sitting in recliner upon arrival. 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 Pain Location: Right Location Body Site: Knee Pain Description: Ache Comment: Reports but doesn't rate pain Mental Status Patient Orientation: Person, Place, Time, Situation Attachments: Knee Immobilizer, Other-See Comments (R hand splint) Transfers SCALE: Activities may be completed with or without assistive devices. 5-Rgkyuomzqa-xxstrdo completes the activity by him/herself with no assistance from a helper. 5-Set-up or Clean-up Assistance-helper sets up or cleans up; patient completes activity. [place] assists only prior to or following the activity. 4-Supervision or Touching Assistance-helper provides verbal cues and/or touch ing/steadying and/or contact guard assistance as patient completes activity. Assistance may be provided throughout the activity or intermittently. 3-Partial/Moderate Assistance-helper does LESS THAN HALF the effort. [place] lifts, holds or supports trunk or limbs, but provides less than half the effort. 2-Substantial/Maximal Assistance-helper does MORE THAN HALF the effort. [place] lifts or holds trunk or limbs and provides more than half the effort. 0-Xegbthbqb-hqkvxa does ALL the effort. Patient does none of the effort to complete the activity. Or, the assistance of 2 or more helpers is required for the patient to complete the activity. If activity was not attempted, code reason: 7-Patient Refused. 9-Not Applicable-not attempted and the patient did not perform the activity before the current illness, exacerbation or injury. 10-Not Attempted due to Environmental Limitations-(lack of equipment, weather restraints, etc.). 88-Not Attempted due to Medical Conditions or Safety Concerns. Sit to Stand (QC): 4 Weight Bearing Right Lower Extremity: Right Weight Bearing/Tolerated Left Lower Extremity: Left Weight Bearing/Tolerated Left WBAT with knee immobilizer. Gait Training Does the Patient Walk?: Yes Distance: 75' Walk 10 feet (QC): 5 Walk 50 ft with 2 Turns(QC): 5 Gait Persons Needed: 1 Gait Assistive Device: Walker Platform Wheelchair Training Does the Pt Use a Wheelchair?: No Treatments Pt had questions about how Dr appt today might affect d/c. Pt educ. over d/c progress including possible need for Therapy after d/c, QC scoring items that would be practiced, & AE needed for d/c. Pt transfers to standing and amb. in hallway w/standing RB as needed. Pt amb. in hallway and returns to room to rest in recliner, ice pack in hand and all needs met, call light in hand. Assessment Current Status: Good Progress Pt continues to gain confidence with independence of tasks as well as the gained strength and activity tolerance needed to complete tasks. PT Panel Machine Setter Goals Prison Goals PT Prison Goals Time Frame: Jun 22, 2021 Roll Left & Right (QC): 6 Sit to Lying (QC): 6 Lying-Sitting on Side/Bed(QC): 6 Sit to Stand (QC): 6 Chair/Kkq-eg-Hbvpj Xfer(QC): 6 Toilet Transfer (QC): 6 Car Transfer (QC): 6 Does the Patient Walk: Yes Walk 10 feet (QC): 6 Walk 50ft with 2 Turns (QC): 6 Walk 150 ft (QC): 6 Walking 10ft on Uneven Surface: 6 1 Step (curb) (QC): 6 4 Steps (QC): 6 12 Steps (QC): 6 Picking up an Object (QC): 6 Does the Pt use WC or Scooter?: No Wheel 50 feet with 2 turns (QC: 9 Type: N/A Wheel 150 feet: 9 Type: N/A PT Plan Problem List Problem List: Activity Tolerance Treatment/Plan Treatment Plan: Continue Plan of Care Treatment Plan: Bed Mobility, Concurrent Therapy, Education, Functional Activity Johanne, Functional Strength, Group Therapy, Gait, Safety, Therapeutic Exercise, Transfers Treatment Duration: Jun 22, 2021 Frequency: At least 5 of 7 days/Wk (IRF) Estimated Hrs Per Day: 1.5 hours per day Patient and/or Family Agrees t: Yes Safety Risks/Education Patient Education: Gait Training, Correct Positioning, Reviewed Don/Doff Brace, Safety Issues Teaching Recipient: Patient Teaching Methods: Discussion Response to Teaching: Verbalize Understanding Time/GCodes Time In: 1515 Time Out: 1600 Total Billed Treatment Time: 45 Total Billed Treatment 1, GT (20m) & FA x2 (25m) MURRAY LICONA FEDERAL JAVA DEVELOPER Jun 03, 2021 16:11
[2021-06-03 19:57] VITALS: BP 129/84
[2021-06-03] MEDS: polyethylene glycoL POWDER 17 GM (MIRALAX) PACK PO SCH (20:58)
[2021-06-03] MEDS: amLODIPine 10 MG (NORVASC) TAB PO SCH (21:54)
[2021-06-03] MEDS: MELATONIN 3 MG TABLET PO PRN (21:56)
[2021-06-04] MEDS: ENOXAPARIN 60 MG/0.6 ML (LOVENOX) SYR SC SCH ×2 (05:09→17:29)
[2021-06-04 08:00] VITALS: BP 119/81
[2021-06-04] MEDS: LACTOBACILLUS ACIDOPHILUS (PROBIOTIC) CAPSULE PO SCH ×2 (08:23→17:29)
[2021-06-04] MEDS: CEPHALEXIN 250 MG (KEFLEX) CAP PO SCH ×4 (08:23→20:32)
[2021-06-04] MEDS: SENNOSIDES 8.6 MG (SENOKOT) TAB PO SCH (08:23)
[2021-06-04] MEDS: SENNA W/DOCUSATE (SENOKOT S) TABLET PO SCH ×2 (08:24→20:31)
[2021-06-04] MEDS: polyethylene glycoL POWDER 17 GM (MIRALAX) PACK PO SCH ×2 (08:24→20:44)
[2021-06-04] MEDS: DOCUSATE SODIUM 100 MG (COLACE) CAP PO SCH ×2 (08:24→20:32)
[2021-06-04] MEDS: metFORMIN 500 MG (GLUCOPHAGE) TAB PO SCH ×2 (08:24→17:29)
[2021-06-04] MEDS: LOSARTAN 100 MG (COZAAR) TABLET PO SCH (08:24)
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
--- NOTE | 2021-06-04 12:10 | Physical Therapy Daily Note ---
PT Daily Note-Current Subjective Pt sitting in recliner upon arrival. Pt agrees to PT. Pain Numeric Pain Scale: 8 Location: Right Location Body Site: Knee Pain Description: Ache Comment: Reports pain after attempting stairs Mental Status Patient Orientation: Person, Place, Time, Situation Attachments: Knee Immobilizer Transfers SCALE: Activities may be completed with or without assistive devices. 5-Izkaigfjmk-xsgipjr completes the activity by him/herself with no assistance from a helper. 5-Set-up or Clean-up Assistance-helper sets up or cleans up; patient completes activity. [place] assists only prior to or following the activity. 4-Supervision or Touching Assistance-helper provides verbal cues and/or touching/steadying and/or contact guard assistance as patient completes activity. Assistance may be provided throughout the activity or intermittently. 3-Partial/Moderate Assistance-helper does LESS THAN HALF the effort. [place] lifts, holds or supports trunk or limbs, but provides less than half the effort. 2-Substantial/Maximal Assistance-helper does MORE THAN HALF the effort. [place] lifts or holds trunk or limbs and provides more than half the effort. 2-Xpjydwlbg-rlqzoq does ALL the effort. Patient does none of the effort to complete the activity. Or, the assistance of 2 or more helpers is required for the patient to complete the activity. If activity was not attempted, code reason: 7-Patient Refused. 9-Not Applicable-not attempted and the patient did not perform the activity be fore the current illness, exacerbation or injury. 10-Not Attempted due to Environmental Limitations-(lack of equipment, weather restraints, etc.). 88-Not Attempted due to Medical Conditions or Safety Concerns. Sit to Stand (QC): 5 Weight Bearing Right Lower Extremity: Right Weight Bearing/Tolerated Left Lower Extremity: Left Weight Bearing/Tolerated Left WBAT with knee immobilizer. Gait Training Does the Patient Walk?: Yes Distance: 125' Walk 10 feet (QC): 5 Walk 50 ft with 2 Turns(QC): 5 Gait Persons Needed: 1 Gait Assistive Device: Walker Platform Wheelchair Training Does the Pt Use a Wheelchair?: Yes Wheel 50 ft with 2 turns (QC): 5 Wheel 150 ft (QC): 5 Type of Wheelchair: Manual Stair Training Stair Training: Handrails/: 2 handrails #of Steps: 3 1 Step (curb) (QC): 4 Stairs: Pattern: Step to Completed 2 sets at //bars with single step then attempted staircase and only able to complete 1 step before pain made pt discontinue stairs. Exercises NuStep Minutes: 17 NuStep Workload: 5 Treatments TF to standing and amb. in hallway to Therapy Gym. Pt uses NuStep for 17m at WL 5. Pt then attempts single step in //bars x2. Pt attempts staircase and is only able to complete 1 step before reporting sharp increase in pain in R LE. Stairs are discontinued at this time. PT educ./ discussion about what could be improved. Pt reports needing better customs manager on R side. Pt propels WCH back to room to rest in recliner. All needs met, call light in hand. Assessment Current Status: Fair Progress Pt takes extended rest breaks and needs encouragement to push self. PT Assisted Goals Electrode Turner And Finisher Goals PT Electrode Turner And Finisher Goals Time Frame: Jun 22, 2021 Roll Left & Right (QC): 6 Sit to Lying (QC): 6 Lying-Sitting on Side/Bed(QC): 6 Sit to Stand (QC): 6 Chair/Qkm-re-Dfasz Xfer(QC): 6 Toilet Transfer (QC): 6 Car Transfer (QC): 6 Does the Patient Walk: Yes Walk 10 feet (QC): 6 Walk 50ft with 2 Turns (QC): 6 Walk 150 ft (QC): 6 Walking 10ft on Uneven Surface: 6 1 Step (curb) (QC): 6 4 Steps (QC): 6 12 Steps (QC): 6 Picking up an Object (QC): 6 Does the Pt use WC or Scooter?: No Wheel 50 feet with 2 turns (QC: 9 Type: N/A Wheel 150 feet: 9 Type: N/A PT Plan Problem List Problem List: Activity Tolerance Treatment/Plan Treatment Plan: Continue Plan of Care Treatment Plan: Bed Mobility, Concurrent Therapy, Education, Functional Activity Johanne, Functional Strength, Group Therapy, Gait, Safety, Therapeutic Exercise, Transfers Treatment Duration: Jun 22, 2021 Frequency: At least 5 of 7 days/Wk (IRF) Estimated Hrs Per Day: 1.5 hours per day Patient and/or Family Agrees t: Yes Safety Risks/Education Patient Education: Steps Teaching Recipient: Patient Teaching Methods: Discussion Response to Teaching: Verbalize Understanding Time/GCodes Time In: 1100 Time Out: 1200 Total Billed Treatment Time: 60 Total Billed Treatment 1, GT (15m), EX (15m), FA (15m) & WCH (15m) MURRAY L[facility]ONA [employer] Jun 04, 2021 12:10
--- NOTE | 2021-06-04 12:36 | Occupational Ther Daily Note ---
OT Current Status-Daily Note Subjective Pt sitting in recliner, alert. No c/o pain. Pt agrees to therapy. Mental Status/Objective Patient Orientation: Person, Place, Time, Situation Attachments: Knee Immobilizer, Other-See Comments (ulnar splint.) ADL-Treatment 1 Session ( [id number]) Pt sit->stand using FWW for stability SBA. Pt ambulated to closet and retrieved clothing using FWW SBA. Pt donned shirt while standing using FWW for stability with SBA. Pt stand->sit in recliner using FWW for stability. Pt given skilled instruction for using AE of shoe horn, pt demonstrated use of shoe horn and sock aide to don socks and shoes with good return. Pt don/doff knee brace by self. After session, pt in recliner with call light/phone within reach. All needs met in room. Therapy Code Descriptions/Definitions Functional [place] Measure: 0=Not Assessed/NA 4=Minimal Assistance 1=Total Assistance 5=Supervision or Setup 2=Maximal Assistance 6=Modified [place] 3=Moderate Assistance 7=Complete IndependenceSCALE: Activities may be completed with or without assistive devices. 1-Gqpyshqpew-ehunaqy completes the activity by him/herself with no assistance from a helper. 5-Set-up or Clean-up Assistance-helper sets up or cleans up; patient completes activity. [place] assists only prior to or following the activity. 4-Supervision or Touching Assistance-helper provides verbal cues and/or touching/steadying and/or contact guard assistance as patient completes activity. Assistance may be provided throughout the activity or intermittently. 3-Partial/Moderate Assistance-helper does LESS THAN HALF the effort. [place] lifts, holds or supports trunk or limbs, but provides less than half the effort. 2-Substantial/Maximal Assistance-helper does MORE THAN HALF the effort. [place] lifts or holds trunk or limbs and provides more than half the effort. 6-Dyqtwnztp-womwnj does ALL the effort. Patient does none of the effort to complete the activity. Or, the assistance of 2 or more helpers is required for the patient to complete the activity. If activity was not attempted, code reason: 7-Patient Refused. 9-Not Applicable-not attempted and the patient did not perform the activity before the current illness, exacerbation or injury. 10-Not Attempted due to Environmental Limitations-(lack of equipment, weather restraints, etc.). 88-Not Attempted due to Medical Conditions or Safety Concerns. Oral Hygiene (QC): 6 (Pt completed by self while seated in w/c) Upper Body Dressing (QC): 4 (SBA) On/Off Footwear: 4 (Verbal cues) Other Treatment 2nd session([id number]) Co-treat with PT, skills of 2 clinicians required to increase functional mobility and decrease fall risk. PT focusing on stairs, ambulation and transfers while OT focusing on B UE placement and functional mobility. Pt able to go from sit to stand with SBA using platform FWW. Pt ambulated to stairwell using platform FWW. Assist with B UE placement and adherence to WB precautions on R hand. See PT notes for progress on stairs and ambulation. After session, pt sitting in recliner with call light/phone in reach. All needs met in room. Education OT Patient Education: Use of adapted equipment Teaching Recipient: Patient Teaching Methods: Demonstration, Discussion Response to Teaching: Verbalize Understanding, Return Demonstration OT Short Term Goals Short Term Goals Time Frame: Jun 05, 2021 Oral hygiene: 5 Toileting hygiene: 4 Shower/bathe self: 4 Upper body dressin Lower body dressin Putting on/taking off footwear: 4 OT Fitness Coach Goals Fitness Coach Goals Time Frame: Jun 21, 2021 Eating (QC): 6 Oral Hygiene (QC): 6 Toileting Hygiene (QC): 6 Shower/Bathe Self (QC): 6 Upper Body Dressing (QC): 6 Lower Body Dressing (QC): 6 On/Off Footwear (QC): 6 Additional Goals: 1-Demonstrate ADL Tasks, 2-Verbalize Understanding, 3- ImproveStrength/Johanne 1=Demonstrate adherence to instructed precautions during ADL tasks. 2=Patient will verbalize/demonstrate understanding of assistive devices/modifications for ADL. 3=Patient will improve strength/tolerance for activity to enable patient to perform ADL's. OT Education/Plan Problem List/Assessment Assessment: Impaired Funct Balance, Impaired Self-Care Skills Discharge Recommendations Plan/Recommendations: Continue POC Treatment Plan/Plan of Care Patient would benefit from OT for education, treatment and training to promote independence in ADL's, mobility, safety and/or upper extremity function for ADL's. Plan of Care: ADL Retraining, Functional Mobility, Group Exercise/Act as Ind, UE Funct Exercise/Act Treatment Duration: Jun 21, 2021 Frequency: At least 5 of 7 days/Wk (IRF) Estimated Hrs Per Day: 1.5 hours per day Agreement: Yes Rehab Potential: Good Time/GCodes Start Time: 09:00 (1400) Stop Time: 10:00 (1430) Total Time Billed (hr/min): 90 Billed Treatment Time 1 Visit([id number]) ADL 4 (60 min) 1 visit ([id number]) FA 2 (30 min) Co-treat with PT [id number] MARÍA GIRARD Jun 04, 2021 12:36
--- NOTE | 2021-06-04 15:55 | Physical Therapy Daily Note ---
PT Daily Note-Current Subjective Pt sitting in recliner upon arrival. Pt agrees to PT. Pain Location: Right Location Body Site: Thigh Pain Description: Ache Mental Status Patient Orientation: Person, Place, Time, Situation Attachments: Knee Immobilizer Transfers SCALE: Activities may be completed with or without assistive devices. 4-Dfokkmznzp-gacrhcx completes the activity by him/herself with no assistance from a helper. 5-Set-up or Clean-up Assistance-helper sets up or cleans up; patient completes activity. [place] assists only prior to or following the activity. 4-Supervision or Touching Assistance-helper provides verbal cues and/or touching/steadying and/or contact guard assistance as patient completes activity. Assistance may be provided throughout the activity or intermittently. 3-Partial/Moderate Assistance-helper does LESS THAN HALF the effort. [place] lifts, holds or supports trunk or limbs, but provides less than half the effort. 2-Substantial/Maximal Assistance-helper does MORE THAN HALF the effort. [place] lifts or holds trunk or limbs and provides more than half the effort. 9-Ltfejqzaa-mtzaol does ALL the effort. Patient does none of the effort to complete the activity. Or, the assistance of 2 or more helpers is required for the patient to complete the activity. If activity was not attempted, code reason: 7-Patient Refused. 9-Not Applicable-not attempted and the patient did not perform the activity before the current illness, exacerbation or injury. 10-Not Attempted due to Environmental Limitations-(lack of equipment, weather restraints, etc.). 88-Not Attempted due to Medical Conditions or Safety Concerns. Sit to Stand (QC): 5 Weight Bearing Right Lower Extremity: Right Weight Bearing/Tolerated Left Lower Extremity: Left Weight Bearing/Tolerated Left WBAT with knee immobilizer. Gait Training Does the Patient Walk?: Yes Distance: 175' Walk 10 feet (QC): 5 Walk 50 ft with 2 Turns(QC): 5 Walk 150 ft (QC): 5 Gait Persons Needed: 1 Gait Assistive Device: Walker Platform Raised FWW up and lowered platform to stay at appropriate height for improved body posture. Wheelchair Training Does the Pt Use a Wheelchair?: No Stair Training Stair Training: Handrails/: 2 handrails #of Steps: 8 1 Step (curb) (QC): 4 4 Steps (QC): 4 Stairs: Pattern: Step to Treatments TF to standing and amb. in hallway. Pt takes RB before amb. stairs. Pt is CGA on stairs but needs a lot of encouragement to continue to push self. Pt takes RB then amb. back to room to rest in recliner. All needs met, call light in h and. Assessment Current Status: Good Progress Pt needs encouragement as pt is nervous about new tasks and shy away from pain. PT Care Home Goals Care Home Goals PT Care Home Goals Time Frame: Jun 22, 2021 Roll Left & Right (QC): 6 Sit to Lying (QC): 6 Lying-Sitting on Side/Bed(QC): 6 Sit to Stand (QC): 6 Chair/Qgv-zi-Nzihc Xfer(QC): 6 Toilet Transfer (QC): 6 Car Transfer (QC): 6 Does the Patient Walk: Yes Walk 10 feet (QC): 6 Walk 50ft with 2 Turns (QC): 6 Walk 150 ft (QC): 6 Walking 10ft on Uneven Surface: 6 1 Step (curb) (QC): 6 4 Steps (QC): 6 12 Steps (QC): 6 Picking up an Object (QC): 6 Does the Pt use WC or Scooter?: No Wheel 50 feet with 2 turns (QC: 9 Type: N/A Wheel 150 feet: 9 Type: N/A PT Plan Problem List Problem List: Activity Tolerance, Functional Strength Treatment/Plan Treatment Plan: Continue Plan of Care Treatment Plan: Bed Mobility, Concurrent Therapy, Education, Functional Activity Johanne, Functional Strength, Group Therapy, Gait, Safety, Therapeutic Exercise, Transfers Treatment Duration: Jun 22, 2021 Frequency: At least 5 of 7 days/Wk (IRF) Estimated Hrs Per Day: 1.5 hours per day Patient and/or Family Agrees t: Yes Safety Risks/Education Patient Education: Steps, Correct Positioning Teaching Recipient: Patient Teaching Methods: Discussion Response to Teaching: Verbalize Understanding Time/GCodes Time In: 1400 Time Out: 1430 Total Billed Treatment Time: 30 Total Billed Treatment 1, GT x2 (30m) MURRAY LICONA WILDL[employer] EC[employer]IST Jun 04, 2021 15:55
[2021-06-04] MEDS: amLODIPine 10 MG (NORVASC) TAB PO SCH (20:32)
[2021-06-04] MEDS: MELATONIN 3 MG TABLET PO PRN (20:33)
[2021-06-04 20:35] VITALS: BP 120/84
[2021-06-05] MEDS: ENOXAPARIN 60 MG/0.6 ML (LOVENOX) SYR SC SCH ×2 (04:56→17:26)
[2021-06-05] MEDS: CEPHALEXIN 250 MG (KEFLEX) CAP PO SCH ×4 (07:45→20:02)
[2021-06-05] MEDS: SENNOSIDES 8.6 MG (SENOKOT) TAB PO SCH (07:45)
[2021-06-05] MEDS: SENNA W/DOCUSATE (SENOKOT S) TABLET PO SCH ×2 (07:45→20:02)
[2021-06-05] MEDS: LACTOBACILLUS ACIDOPHILUS (PROBIOTIC) CAPSULE PO SCH ×2 (07:45→17:26)
[2021-06-05] MEDS: DOCUSATE SODIUM 100 MG (COLACE) CAP PO SCH ×2 (07:45→20:02)
[2021-06-05] MEDS: metFORMIN 500 MG (GLUCOPHAGE) TAB PO SCH ×2 (07:45→17:25)
[2021-06-05] MEDS: LOSARTAN 100 MG (COZAAR) TABLET PO SCH (07:46)
[2021-06-05 07:50] VITALS: BP 133/81
[2021-06-05] MEDS: polyethylene glycoL POWDER 17 GM (MIRALAX) PACK PO SCH ×2 (09:00→20:00)
--- NOTE | 2021-06-05 10:53 | Occupational Ther Daily Note ---
OT Current Status-Daily Note Subjective Pt supine in bed with HOB raised, alert. No c/o pain. Pt agrees to therapy. Mental Status/Objective Patient Orientation: Person, Place, Time, Situation Attachments: Knee Immobilizer, Other-See Comments (L ulnar splint) ADL-Treatment Pt agrees to shower. Pt supine->sit EOB by self using bedrail for support., sit- >stand using platform FWW for stability. Pt ambulated to closet using platform FWW, SBA, retrieved clothing SBA, ambulated to shower using platform FWW SBA. Pt stand-> sit on shower bench using grabbars and platform FWW SBA. Pt showerbench- >w/c using grabbars for stability.SBA. At end of session, pt sitting in w/c with call light/phone in reach. All needs met. Therapy Code Descriptions/Definitions Functional [place] Measure: 0=Not Assessed/NA 4=Minimal Assistance 1=Total Assistance 5=Supervision or Setup 2=Maximal Assistance 6=Modified [place] 3=Moderate Assistance 7=Complete IndependenceSCALE: Activities may be completed with or without assistive devices. 7-Bklcxhcwzr-xlzocuy completes the activity by him/herself with no assistance from a helper. 5-Set-up or Clean-up Assistance-helper sets up or cleans up; patient completes activity. [place] assists only prior to or following the activity. 4-Supervision or Touching Assistance-helper provides verbal cues and/or touching/steadying and/or contact guard assistance as patient completes activity. Assistance may be provided throughout the activity or intermittently. 3-Partial/Moderate Assistance-helper does LESS THAN HALF the effort. [place] li fts, holds or supports trunk or limbs, but provides less than half the effort. 2-Substantial/Maximal Assistance-helper does MORE THAN HALF the effort. [place] lifts or holds trunk or limbs and provides more than half the effort. 9-Rmoaoxjlp-psetbs does ALL the effort. Patient does none of the effort to complete the activity. Or, the assistance of 2 or more helpers is required for the patient to complete the activity. If activity was not attempted, code reason: 7-Patient Refused. 9-Not Applicable-not attempted and the patient did not perform the activity before the current illness, exacerbation or injury. 10-Not Attempted due to Environmental Limitations-(lack of equipment, weather restraints, etc.). 88-Not Attempted due to Medical Conditions or Safety Concerns. Oral Hygiene (QC): 6 (Pt independent in setting up and brushing teeth.) Bathing Location: L Arm, R Arm, L Upper Leg, R Upper Leg, L Lower Leg (including foot), R Lower Leg (including foot), Chest, Abdomen, Buttocks (with pt leaning side to side to cleanse), Perineal Area Shower/Bathe Self (QC): 6 (Pt able to cleanse all areas using LHS and hand held shower by self.) Upper Body Dressing (QC): 4 (Pt able to gather clothing SBA and don/doff by self.) Lower Body Dressing (QC): 4 (Pt able to don/doff pants and knee immobilizer by self. Pt gathers all items by self SBA.) OT Short Term Goals Short Term Goals Time Frame: Jun 05, 2021 Oral hygiene: 5 Toileting hygiene: 4 Shower/bathe self: 4 Upper body dressin Lower body dressin Putting on/taking off footwear: 4 OT Assisted Goals Liquefied Petroleum Gasfitter Goals Time Frame: Jun 21, 2021 Eating (QC): 6 Oral Hygiene (QC): 6 Toileting Hygiene (QC): 6 Shower/Bathe Self (QC): 6 Upper Body Dressing (QC): 6 Lower Body Dressing (QC): 6 On/Off Footwear (QC): 6 Additional Goals: 1-Demonstrate ADL Tasks, 2-Verbalize Understanding, 3- ImproveStrength/Johanne 1=Demonstrate adherence to instructed precautions during ADL tasks. 2=Patient will verbalize/demonstrate understanding of assistive devices/modifications for ADL. 3=Patient will improve strength/tolerance for activity to enable patient to perform ADL's. OT Education/Plan Problem List/Assessment Assessment: Impaired Funct Balance, Impaired Self-Care Skills Discharge Recommendations Plan/Recommendations: Continue POC Treatment Plan/Plan of Care Patient would benefit from OT for education, treatment and training to promote independence in ADL's, mobility, safety and/or upper extremity function for ADL's. Plan of Care: ADL Retraining, Functional Mobility, Group Exercise/Act as Ind, UE Funct Exercise/Act Treatment Duration: Jun 21, 2021 Frequency: At least 5 of 7 days/Wk (IRF) Estimated Hrs Per Day: 1.5 hours per day Agreement: Yes Rehab Potential: Good Time/GCodes Start Time: 10:00 Stop Time: 11:00 Total Time Billed (hr/min): 60 Billed Treatment Time 1 Visit- ADL 4 (60 min) MARÍA GIRARD Jun 05, 2021 10:53
--- NOTE | 2021-06-05 12:07 | Physical Therapy Daily Note ---
PT Daily Note-Current Subjective Pt sitting in recliner upon arrival. Pt agrees to PT. Pt reports discomfort/pulling at R hip & upper thigh. Pain Location: Right, Upper Location Body Site: Thigh Pain Description: Ache, Tightness Comment: Reports but doesn't rate Mental Status Patient Orientation: Person, Place, Time, Situation Attachments: Knee Immobilizer Transfers SCALE: Activities may be completed with or without assistive devices. 9-Zviqgwamwt-nkvwcnc completes the activity by him/herself with no assistance from a helper. 5-Set-up or Clean-up Assistance-helper sets up or cleans up; patient completes activity. [place] assists only prior to or following the activity. 4-Supervision or Touching Assistance-helper provides verbal cues and/or touching/steadying and/or contact guard assistance as patient completes activity. Assistance may be provided throughout the activity or intermittently. 3-Partial/Moderate Assistance-helper does LESS THAN HALF the effort. [place] lifts, holds or supports trunk or limbs, but provides less than half the effort. 2-Substantial/Maximal Assistance-helper does MORE THAN HALF the effort. [place] lifts or holds trunk or limbs and provides more than half the effort. 9-Zozxtgzex-upqyxx does ALL the effort. Patient does none of the effort to complete the activity. Or, the assistance of 2 or more helpers is required for the patient to complete the activity. If activity was not attempted, code reason: 7-Patient Refused. 9-Not Applicable-not attempted and the patient did not perform the activity before the current illness, exacerbation or injury. 10-Not Attempted due to Environmental Limitations-(lack of equipment, weather restraints, etc.). 88-Not Attempted due to Medical Conditions or Safety Concerns. Sit to Stand (QC): 4 Weight Bearing Right Lower Extremity: Right Weight Bearing/Tolerated Left Lower Extremity: Left Weight Bearing/Tolerated Left WBAT with knee immobilizer. Gait Training Does the Patient Walk?: Yes Distance: 125' x2 Walk 10 feet (QC): 5 Walk 50 ft with 2 Turns(QC): 5 Gait Persons Needed: 1 Gait Assistive Device: Walker Platform Wheelchair Training Does the Pt Use a Wheelchair?: No Exercises NuStep Minutes: 16 NuStep Workload: 7 Treatments TF to standing and amb. in hallway, taking RB as needed. Pt uses NuStep for 16m at WL 7. Pt takes short RB then focuses on standing hip extensor stretch at //bars. Pt only able to complete a few before needing to rest & reporting discomfort. Pt amb. in hallway & back to room. Pt returns to rest in recliner with all needs met, call light in hand. Assessment Current Status: Fair Progress Pt limits participation due to perceived pain and stiffness. ORNAMENTAL PAINTER encourages pt to push self as he can. PT Stroboscope Operator Goals Half-Way Goals PT Stroboscope Operator Goals Time Frame: Jun 22, 2021 Roll Left & Right (QC): 6 Sit to Lying (QC): 6 Lying-Sitting on Side/Bed(QC): 6 Sit to Stand (QC): 6 Chair/Cuq-zp-Rokpa Xfer(QC): 6 Toilet Transfer (QC): 6 Car Transfer (QC): 6 Does the Patient Walk: Yes Walk 10 feet (QC): 6 Walk 50ft with 2 Turns (QC): 6 Walk 150 ft (QC): 6 Walking 10ft on Uneven Surface: 6 1 Step (curb) (QC): 6 4 Steps (QC): 6 12 Steps (QC): 6 Picking up an Object (QC): 6 Does the Pt use WC or Scooter?: No Wheel 50 feet with 2 turns (QC: 9 Type: N/A Wheel 150 feet: 9 Type: N/A PT Plan Problem List Problem List: Activity Tolerance Treatment/Plan Treatment Plan: Continue Plan of Care Treatment Plan: Bed Mobility, Concurrent Therapy, Education, Functional Activity Johanne, Functional Strength, Group Therapy, Gait, Safety, Therapeutic Exercise, Transfers Treatment Duration: Jun 22, 2021 Frequency: At least 5 of 7 days/Wk (IRF) Estimated Hrs Per Day: 1.5 hours per day Patient and/or Family Agrees t: Yes Safety Risks/Education Patient Education: Correct Positioning Teaching Recipient: Patient Teaching Methods: Discussion Response to Teaching: Verbalize Understanding Time/GCodes Time In: 1100 Time Out: 1200 Total Billed Treatment Time: 60 Total Billed Treatment 1, GT (20m), EX (15m) & FA x2 (25m) MURRAY LICONA ORNAMENTAL PAINTER Jun 05, 2021 12:07
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
--- NOTE | 2021-06-05 14:35 | Therapy Group Daily Note ---
Therapy Daily Group Note Patient Education Topic Other List Below Exercises LE Seated Exercise, UE Exercise Session Ratio (pt:therapist): 7:2 Goal of Session: Education on ARU Expectations, Memory Strategies, UE/LE Strengthing Goal Met for this Session: Yes Pt Benefit of Group: Contributions to Others, F/U Use of Strategies @Home, Increased Functional Safety, Increased Functional Strength, Improved Cognition, Recognition of Peers, Socialization Other/Notes Pt transported via w/c to [facility] for OT/PT group. Group consisted of introductions (name, place living, childhood memory), socialization, B UE/LE seated exercises, educational topics of ARU description/expectations and memory. Pt introduced self appropriately and actively listened to peers. Pt able to complete B UE/LE WFL with minimal modifications due to medical issues. Pt acknowledged understanding of educational topics by nodding affirmative and giving own personal strategies. After session, pt lying in bed with call light/phone in reach. All needs met in room. Start Time: 13:00 Stop Time: 14:00 Total Billed Treatment Time: 60 Total Billed Treatment 1-GRP MARÍA GIRARD Jun 05, 2021 14:35
[2021-06-05] MEDS: amLODIPine 10 MG (NORVASC) TAB PO SCH (20:02)
[2021-06-05 20:37] VITALS: BP 123/64
[2021-06-06] MEDS: ENOXAPARIN 60 MG/0.6 ML (LOVENOX) SYR SC SCH ×2 (05:15→17:34)
[2021-06-06 08:00] VITALS: BP 147/82
[2021-06-06] MEDS: LACTOBACILLUS ACIDOPHILUS (PROBIOTIC) CAPSULE PO SCH ×2 (08:24→17:34)
[2021-06-06] MEDS: metFORMIN 500 MG (GLUCOPHAGE) TAB PO SCH ×2 (08:24→17:34)
[2021-06-06] MEDS: SENNA W/DOCUSATE (SENOKOT S) TABLET PO SCH ×2 (08:24→20:33)
[2021-06-06] MEDS: DOCUSATE SODIUM 100 MG (COLACE) CAP PO SCH ×2 (08:24→20:32)
[2021-06-06] MEDS: LOSARTAN 100 MG (COZAAR) TABLET PO SCH (08:24)
[2021-06-06] MEDS: CEPHALEXIN 250 MG (KEFLEX) CAP PO SCH ×4 (08:24→20:32)
[2021-06-06] MEDS: SENNOSIDES 8.6 MG (SENOKOT) TAB PO SCH (09:00)
[2021-06-06] MEDS: polyethylene glycoL POWDER 17 GM (MIRALAX) PACK PO SCH ×2 (09:00→20:32)
--- NOTE | 2021-06-06 09:30 | Occupational Ther Daily Note ---
OT Current Status-Daily Note Subjective Pt supine in recliner, alert. Reported minor pain in upper R leg. Pt stated just receiving medication. Pt agrees to therapy. Mental Status/Objective Patient Orientation: Person, Place, Time, Situation Attachments: Knee Immobilizer, Other-See Comments (R ulnar splint) ADL-Treatment 1 Session () Pt chair->w/c using platform FWW SBA for stability, prope lled to bathroom sink to complete oral care. Pt w/c-> platform FWW SBA, ambulated to bed<->EOB using platform FWW for stability. Skilled instruction given on transferring and bed mobility given with pt giving good return on skilled instructions. Pt participated in closet management activity. While standing using platform FWW for stability, pt placed items from bag on shelf, reaching to top of closet while standing using platform FWW for stability. Stand->sit in recliner using platform FWW for stability. Pt changed from slippers to regular tennis shoes using corporate human resources manager and shoehorn while seated in recliner. After session, pt in recliner with call light/phone within reach. All needs met in room. Therapy Code Descriptions/Definitions Functional [place] Measure: 0=Not Assessed/NA 4=Minimal Assistance 1=Total Assistance 5=Supervision or Setup 2=Maximal Assistance 6=Modified [place] 3=Moderate Assistance 7=Complete IndependenceSCALE: Activities may be completed with or without assistive devices. 2-Nvyqiseuga-wvwewgy completes the activity by him/herself with no assistance from a helper. 5-Set-up or Clean-up Assistance-helper sets up or cleans up; patient completes activity. [place] assists only prior to or following the activity. 4-Supervision or Touching Assistance-helper provides verbal cues and/or touching/steadying and/or contact guard assistance as patient completes activity. Assistance may be provided throughout the activity or intermittently. 3-Partial/Moderate Assistance-helper does LESS THAN HALF the effort. [place] l ifts, holds or supports trunk or limbs, but provides less than half the effort. 2-Substantial/Maximal Assistance-helper does MORE THAN HALF the effort. [place] lifts or holds trunk or limbs and provides more than half the effort. 6-Jebdruvvm-rjrtyd does ALL the effort. Patient does none of the effort to complete the activity. Or, the assistance of 2 or more helpers is required for t he patient to complete the activity. If activity was not attempted, code reason: 7-Patient Refused. 9-Not Applicable-not attempted and the patient did not perform the activity before the current illness, exacerbation or injury. 10-Not Attempted due to Environmental Limitations-(lack of equipment, weather restraints, etc.). 88-Not Attempted due to Medical Conditions or Safety Concerns. On/Off Footwear: 6 (Pt able to retieve socks and shoes and don/doff socks and shoes using sock aide, shoe horn, and corporate human resources manager. ) Other Treatment 2nd Session- ([id number]) Pt sitting in recliner. Sit->stand using platform FWW for stability SBA. Pt ambulated to toilet using platform FWW, while standing, using Platform FWW for stability, patient urinated then ambulated to sink and washed hands. Pt ambulated to therapy room using platform FWW SBA. Pt participat ed in therapeutic exercise to strengthen B UE and increase activity tolerance. Using 3 lb hand weights for resistance pt completed B bicep curls 15 reps x2 sets, B tricep extensions 15 reps x2 sets, horizontal shoulder abduction 15 reps x2 sets, shoulder shrugs 10 reps x 2 sets, B internal rotation 15 reps x 2 sets. After session, pt with PT in therapy room. All needs met. Education OT Patient Education: Correct positioning (for bed mobility and transfer), Safety issues, Transfer techniques (EOB<->supine in bed) Teaching Recipient: Patient Teaching Methods: Demonstration, Discussion Response to Teaching: Verbalize Understanding, Return Demonstration OT Short Term Goals Short Term Goals Time Frame: Jun 05, 2021 Oral hygiene: 5 Toileting hygiene: 4 Shower/bathe self: 4 Upper body dressin Lower body dressin Putting on/taking off footwear: 4 OT Line Decorator Goals Half-Way Goals Time Frame: Jun 21, 2021 Eating (QC): 6 Oral Hygiene (QC): 6 Toileting Hygiene (QC): 6 Shower/Bathe Self (QC): 6 Upper Body Dressing (QC): 6 Lower Body Dressing (QC): 6 On/Off Footwear (QC): 6 Additional Goals: 1-Demonstrate ADL Tasks, 2-Verbalize Understanding, 3-Improve Strength/Johanne 1=Demonstrate adherence to instructed precautions during ADL tasks. 2=Patient will verbalize/demonstrate understanding of assistive devices/modifications for ADL. 3=Patient will improve strength/tolerance for activity to enable patient to pe rform ADL's. OT Education/Plan Problem List/Assessment Assessment: Decreased Activ Tolerance, Decreased UE Strength, Impaired Bed Mobility, Impaired Coordination, Impaired Funct Balance, Impaired Self-Care Skil ls Discharge Recommendations Plan/Recommendations: Continue POC Treatment Plan/Plan of Care Patient would benefit from OT for education, treatment and training to promote independence in ADL's, mobility, safety and/or upper extremity function for ADL's. Plan of Care: ADL Retraining, Functional Mobility, Group Exercise/Act as Ind, UE Funct Exercise/Act Treatment Duration: Jun 21, 2021 Frequency: At least 5 of 7 days/Wk (IRF) Estimated Hrs Per Day: 1.5 hours per day Agreement: Yes Rehab Potential: Good Time/GCodes Start Time: 08:30 (1330) Stop Time: 09:30 (1400) Total Time Billed (hr/min): 90 Billed Treatment Time 1 Visit([id number])- FA 4 (60 min), 1 Visit([id number])- EX 2 (30 min) MARÍA GIRARD Jun 06, 2021 09:30
--- NOTE | 2021-06-06 11:14 | Physical Therapy Daily Note ---
PT Daily Note-Current Subjective Pt in recliner upon arrival and agrees to tx. Pt states he has pain in R quad area, states when resting it's about a 4 and when he is doing therapy it is a 6- 8/10. Pain Location: Right Location Body Site: Thigh Pain Description: Stabbing, Sharp Mental Status Patient Orientation: Person, Place, Time, Situation Attachments: Knee Immobilizer Transfers SCALE: Activities may be completed with or without assistive devices. 6-Vlrnzngeia-sgpbytw completes the activity by him/herself with no assistance from a helper. 5-Set-up or Clean-up Assistance-helper sets up or cleans up; patient completes activity. [place] assists only prior to or following the activity. 4-Supervision or Touching Assistance-helper provides verbal cues and/or touching/steadying and/or contact guard assistance as patient completes activity. Assistance may be provided throughout the activity or intermittently. 3-Partial/Moderate Assistance-helper does LESS THAN HALF the effort. [place] lifts, holds or supports trunk or limbs, but provides less than half the effort. 2-Substantial/Maximal Assistance-helper does MORE THAN HALF the effort. [place] lifts or holds trunk or limbs and provides more than half the effort. 4-Jrwtgceoe-xebbwz does ALL the effort. Patient does none of the effort to compl ete the activity. Or, the assistance of 2 or more helpers is required for the patient to complete the activity. If activity was not attempted, code reason: 7-Patient Refused. 9-Not Applicable-not attempted and the patient did not perform the activity before the current illness, exacerbation or injury. 10-Not Attempted due to Environmental Limitations-(lack of equipment, weather restraints, etc.). 88-Not Attempted due to Medical Conditions or Safety Concerns. Sit to Stand (QC): 5 Weight Bearing Right Lower Extremity: Right Weight Bearing/Tolerated Left Lower Extremity: Left Weight Bearing/Tolerated Left WBAT with knee immobilizer. Gait Training Does the Patient Walk?: Yes Distance: 125' x2 Walk 10 feet (QC): 5 Walk 50 ft with 2 Turns(QC): 5 Gait Assistive Device: Walker Platform Wheelchair Training Does the Pt Use a Wheelchair?: No Exercises Seated Therapy Exercises: Ankle pumps, Sit to stand, Long arc quads, Hip flexion, Glut set Seated Reps: 10 NuStep Minutes: 17 NuStep Workload: 7 Treatments Pt sit to stand from recliner, amb to therapy gym and completes NuStep for 17 mins on WL of 7. Pt has short rest break, then completes seated ex. Pt states knee immobilizer is uncomfortable, readjust with PT A. Pt then amb back to room and returns to recliner. Pt is left with all needs met and call light in hand Assessment Current Status: Good Progress Pt is limited by pain and requires frequent rest breaks PT Technical Solutions Engineer Goals Technical Solutions Engineer Goals PT Senior Care Goals Time Frame: Jun 22, 2021 Roll Left & Right (QC): 6 Sit to Lying (QC): 6 Lying-Sitting on Side/Bed(QC): 6 Sit to Stand (QC): 6 Chair/Nyr-fj-Ivvwj Xfer(QC): 6 Toilet Transfer (QC): 6 Car Transfer (QC): 6 Does the Patient Walk: Yes Walk 10 feet (QC): 6 Walk 50ft with 2 Turns (QC): 6 Walk 150 ft (QC): 6 Walking 10ft on Uneven Surface: 6 1 Step (curb) (QC): 6 4 Steps (QC): 6 12 Steps (QC): 6 Picking up an Object (QC): 6 Does the Pt use WC or Scooter?: No Wheel 50 feet with 2 turns (QC: 9 Type: N/A Wheel 150 feet: 9 Type: N/A PT Plan Problem List Problem List: Activity Tolerance, Functional Strength Treatment/Plan Treatment Plan: Continue Plan of Care Treatment Plan: Bed Mobility, Concurrent Therapy, Education, Functional Activity Johanne, Functional Strength, Group Therapy, Gait, Safety, Therapeutic Exercise, Transfers Treatment Duration: Jun 22, 2021 Frequency: At least 5 of 7 days/Wk (IRF) Estimated Hrs Per Day: 1.5 hours per day Patient and/or Family Agrees t: Yes Safety Risks/Education Patient Education: Gait Training, Correct Positioning, Safety Issues Teaching Recipient: Patient Teaching Methods: Demonstration, Discussion Response to Teaching: Verbalize Understanding, Return Demonstration Time/GCodes Time In: 1015 Time Out: 1115 Total Billed Treatment Time: 60 Total Billed Treatment 1, GT x2, EX x2 GERMAIN NAVARRETE PROJECT RESERVOIR ENGINEER Jun 06, 2021 11:14
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
--- NOTE | 2021-06-06 14:25 | Physical Therapy Daily Note ---
PT Daily Note-Current Subjective Pt in therapy gym finishing with OT and agrees to PT. Pt states pain in R thigh but doesn't rate out of 10. Pain Location: Right Location Body Site: Thigh Pain Description: Stabbing, Sharp Mental Status Patient Orientation: Person, Place, Time, Situation Transfers SCALE: Activities may be completed with or without assistive devices. 3-Tacjqqkwom-fuoqanc completes the activity by him/herself with no assistance from a helper. 5-Set-up or Clean-up Assistance-helper sets up or cleans up; patient completes activity. [place] assists only prior to or following the activity. 4-Supervision or Touching Assistance-helper provides verbal cues and/or touching/steadying and/or contact guard assistance as patient completes activity. Assistance may be provided throughout the activity or intermittently. 3-Partial/Moderate Assistance-helper does LESS THAN HALF the effort. [place] lifts, holds or supports trunk or limbs, but provides less than half the effort. 2-Substantial/Maximal Assistance-helper does MORE THAN HALF the effort. [place] lifts or holds trunk or limbs and provides more than half the effort. 3-Xbaucarrv-nmgcdb does ALL the effort. Patient does none of the effort to complete the activity. Or, the assistance of 2 or more helpers is required for the patient to complete the activity. If activity was not attempted, code reason: 7-Patient Refused. 9-Not Applicable-not attempted and the patient did not perform the activity before the current illness, exacerbation or injury. 10-Not Attempted due to Environmental Limitations-(lack of equipment, weather restraints, etc.). 88-Not Attempted due to Medical Conditions or Safety Concerns. Sit to Stand (QC): 5 Weight Bearing Right Lower Extremity: Right Weight Bearing/Tolerated Left Lower Extremity: Left Weight Bearing/Tolerated Left WBAT with knee immobilizer. Gait Training Does the Patient Walk?: Yes Distance: 125' x2 Walk 10 feet (QC): 5 Walk 50 ft with 2 Turns(QC): 5 Gait Assistive Device: Walker Platform Pt has slow, antalgic gait d/t R thigh pain Stair Training Stair Training: Handrails/: 2 handrails #of Steps: 4 1 Step (curb) (QC): 4 4 Steps (QC): 4 Stairs: Pattern: Step to Pt able to complete 4 steps on stairs in therapy gym on ARU with CGA, VC for sequencing and placement Treatments Pt sit to stand from chair and amb to stairs, able to complete CGA with very slow gait pattern. Pt has rest break, then amb 125' back to room. Pt returns to recliner post tx and was left with all needs met, call light in hand Assessment Current Status: Fair Progress Pt limited d/t pain PT Prison Goals Prison Goals PT Wound/Ostomy Clinical Nurse Specialist Goals Time Frame: Jun 22, 2021 Roll Left & Right (QC): 6 Sit to Lying (QC): 6 Lying-Sitting on Side/Bed(QC): 6 Sit to Stand (QC): 6 Chair/Rrb-lh-Askju Xfer(QC): 6 Toilet Transfer (QC): 6 Car Transfer (QC): 6 Does the Patient Walk: Yes Walk 10 feet (QC): 6 Walk 50ft with 2 Turns (QC): 6 Walk 150 ft (QC): 6 Walking 10ft on Uneven Surface: 6 1 Step (curb) (QC): 6 4 Steps (QC): 6 12 Steps (QC): 6 Picking up an Object (QC): 6 Does the Pt use WC or Scooter?: No Wheel 50 feet with 2 turns (QC: 9 Type: N/A Wheel 150 feet: 9 Type: N/A PT Plan Treatment/Plan Treatment Plan: Continue Plan of Care Treatment Plan: Bed Mobility, Concurrent Therapy, Education, Functional Activity Johanne, Functional Strength, Group Therapy, Gait, Safety, Therapeutic Exercise, Transfers Treatment Duration: Jun 22, 2021 Frequency: At least 5 of 7 days/Wk (IRF) Estimated Hrs Per Day: 1.5 hours per day Patient and/or Family Agrees t: Yes Time/GCodes Time In: 1400 Time Out: 1430 Total Billed Treatment Time: 30 Total Billed Treatment 1, GRISEL, GERMAIN TRUJILLO EMERGENCY CARE TECH Jun 06, 2021 14:25
[2021-06-06 20:00] VITALS: BP 121/74
[2021-06-06] MEDS: amLODIPine 10 MG (NORVASC) TAB PO SCH (20:33)
[2021-06-07] MEDS: ENOXAPARIN 60 MG/0.6 ML (LOVENOX) SYR SC SCH ×2 (04:48→17:07)
[2021-06-07 07:59] VITALS: BP 135/82
[2021-06-07] MEDS: metFORMIN 500 MG (GLUCOPHAGE) TAB PO SCH ×2 (08:35→17:06)
[2021-06-07] MEDS: DOCUSATE SODIUM 100 MG (COLACE) CAP PO SCH ×2 (08:35→22:01)
[2021-06-07] MEDS: CEPHALEXIN 250 MG (KEFLEX) CAP PO SCH ×4 (08:36→22:02)
[2021-06-07] MEDS: SENNOSIDES 8.6 MG (SENOKOT) TAB PO SCH (08:36)
[2021-06-07] MEDS: LACTOBACILLUS ACIDOPHILUS (PROBIOTIC) CAPSULE PO SCH ×2 (08:36→17:06)
[2021-06-07] MEDS: polyethylene glycoL POWDER 17 GM (MIRALAX) PACK PO SCH ×2 (08:36→21:58)
[2021-06-07] MEDS: SENNA W/DOCUSATE (SENOKOT S) TABLET PO SCH ×2 (08:36→22:01)
[2021-06-07] MEDS: LOSARTAN 100 MG (COZAAR) TABLET PO SCH (08:36)
--- NOTE | 2021-06-07 08:57 | Occupational Ther Daily Note ---
OT Current Status-Daily Note Subjective Pt sitting in recliner, alert. Pt reported 4/10 pain in R upper leg. Nrsg notified and administered medication. Pt agrees to therapy. Mental Status/Objective Patient Orientation: Person, Place, Time, Situation Attachments: Knee Immobilizer, Other-See Comments (L ulnar splint) ADL-Treatment Pt agrees to shower. Sit-> stand using platform FWW SBA, ambulated to closet and gathered clothing using platform FWW for stability. Pt ambulated to shower bench using platform FWW SBA, stand->shower bench using grabbars and platform FWW for stability SBA. Pt uses FWW to back up to shower bench then when seated on shower bench, pt uses R hand to lift legs over/out tub edge, then scoots more into tub. Pt stand->w/c using platform FWW for stability. Pt transferred w/c-> recliner using platform FWW for stability. After session, pt in recliner with call light/phone within reach. All needs met in room. Therapy Code Descriptions/Definitions Functional [place] Measure: 0=Not Assessed/NA 4=Minimal Assistance 1=Total Assistance 5=Supervision or Setup 2=Maximal Assistance 6=Modified [place] 3=Moderate Assistance 7=Complete IndependenceSCALE: Activities may be completed with or without assistive devices. 1-Wfqftyufej-wripbta completes the activity by him/herself with no assistance from a helper. 5-Set-up or Clean-up Assistance-helper sets up or cleans up; patient completes activity. [place] assists only prior to or following the activity. 4-Supervision or Touching Assistance-helper provides verbal cues and/or touching/steadying and/or contact guard assistance as patient completes activity. Assistance may be provided throughout the activity or intermittently. 3-Partial/Moderate Assistance-helper does LESS THAN HALF the effort. [place] lifts, holds or supports trunk or limbs, but provides less than half the effort. 2-Substantial/Maximal Assistance-helper does MORE THAN HALF the effort. [place] lifts or holds trunk or limbs and provides more than half the effort. 2-Pbhadonud-cxxuds does ALL the effort. Patient does none of the effort to complete the activity. Or, the assistance of 2 or more helpers is required for the patient to complete the activity. If activity was not attempted, code reason: 7-Patient Refused. 9-Not Applicable-not attempted and the patient did not perform the activity before the current illness, exacerbation or injury. 10-Not Attempted due to Environmental Limitations-(lack of equipment, weather restraints, etc.). 88-Not Attempted due to Medical Conditions or Safety Concerns. Oral Hygiene (QC): 6 (Pt able to complete by self while seated in w/c at sink) Bathing Location: L Arm, R Arm, L Upper Leg, R Upper Leg, L Lower Leg (including foot), R Lower Leg (including foot), Chest, Abdomen, Buttocks, Perineal Area Shower/Bathe Self (QC): 6 (Pt able to gather supplies and cleanse all areas using LHS and hand held shower while seated on shower bench.) Upper Body Dressing (QC): 4 (Pt gathers clothing SBA, and don/doffs by self) Lower Body Dressing (QC): 4 (Pt gathers clothing and don/doffs using platform FWW for stability while hiking over hips SBA.) On/Off Footwear: 4 (Pt uses sock aide to don socks by self while seated on shower bench.) Toileting Hygiene (QC): 6 (Pt states he cleanses self and is able to manage clothing using platform FWW and grabbars for stability.) OT Short Term Goals Short Term Goals Time Frame: Jun 05, 2021 Oral hygiene: 5 Toileting hygiene: 4 Shower/bathe self: 4 Upper body dressin Lower body dressin Putting on/taking off footwear: 4 OT Residential Goals Residential Goals Time Frame: Jun 21, 2021 Eating (QC): 6 Oral Hygiene (QC): 6 Toileting Hygiene (QC): 6 Shower/Bathe Self (QC): 6 Upper Body Dressing (QC): 6 Lower Body Dressing (QC): 6 On/Off Footwear (QC): 6 Additional Goals: 1-Demonstrate ADL Tasks, 2-Verbalize Understanding, 3- ImproveStrength/Johanne 1=Demonstrate adherence to instructed precautions during ADL tasks. 2=Patient will verbalize/demonstrate understanding of assistive devices/modifications for ADL. 3=Patient will improve strength/tolerance for activity to enable patient to perform ADL's. OT Education/Plan Problem List/Assessment Assessment: Decreased Activ Tolerance, Decreased UE Strength, Impaired Self- Care Skills Discharge Recommendations Plan/Recommendations: Continue POC Treatment Plan/Plan of Care Patient would benefit from OT for education, treatment and training to promote independence in ADL's, mobility, safety and/or upper extremity function for ADL's. Plan of Care: ADL Retraining, Functional Mobility, Group Exercise/Act as Ind, UE Funct Exercise/Act Treatment Duration: Jun 21, 2021 Frequency: At least 5 of 7 days/Wk (IRF) Estimated Hrs Per Day: 1.5 hours per day Agreement: Yes Rehab Potential: Good Time/GCodes Start Time: 08:00 Stop Time: 09:00 Total Time Billed (hr/min): 60 Billed Treatment Time 1 visit-ADL 4 (60 min) MARÍA GIRARD Jun 07, 2021 08:57
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
[2021-06-07] MEDS: DICLOFENAC 1% GEL 100 GM (VOLTAREN) TUBE TOP SCH ×3 (14:08→22:05)
--- NOTE | 2021-06-07 14:33 | Therapy Group Daily Note ---
Therapy Daily Group Note Patient Education Topic Fall Prevention, Home Safety, Other List Below (balance) Session Ratio (pt:therapist): 4:1 Goal of Session: Education on ARU Expectations, Home Safety Strategies, UE/LE Strengthing, Safety with Transfers, Other (list) (balance) Goal Met for this Session: Yes Pt Benefit of Group: Contributions to Others, F/U Use of Strategies @Home, Increased Functional Safety, Increased Functional Strength, Improved Cognition, Recognition of Peers, Socialization Other/Notes Pt ambulated using platform FWW to ARU comm[facility] are for OT/PT group. Group consisted of introductions(name, place living, favorite Thanksgiving dessert), socialization, pt led B UE/LE seated exercises, and educational topics (balance, fall prevention, ARU description/expectations). Pt introduced self appropriately and actively listened to peers. Pt able to complete pt led B UE/LE exercises with modifications due to medical issues. Pt acknowledged understanding of educational topics by giving own personal strategies and affirmative gestures. After session, pt lying in bed with call light/phone in reach. All needs met in room. Start Time: 13:00 Stop Time: 14:00 Total Billed Treatment Time: 60 Total Billed Treatment 1-GRP MARÍA GIRARD Jun 07, 2021 14:33
[2021-06-07 19:12] VITALS: BP 119/66
[2021-06-07] MEDS: amLODIPine 10 MG (NORVASC) TAB PO SCH (22:02)
[2021-06-08] MEDS: ENOXAPARIN 60 MG/0.6 ML (LOVENOX) SYR SC SCH ×2 (05:47→18:30)
[2021-06-08 07:30] VITALS: BP 139/88
[2021-06-08] MEDS: LOSARTAN 100 MG (COZAAR) TABLET PO SCH (09:12)
[2021-06-08] MEDS: CEPHALEXIN 250 MG (KEFLEX) CAP PO SCH ×4 (09:12→20:44)
[2021-06-08] MEDS: LACTOBACILLUS ACIDOPHILUS (PROBIOTIC) CAPSULE PO SCH ×2 (09:12→18:30)
[2021-06-08] MEDS: metFORMIN 500 MG (GLUCOPHAGE) TAB PO SCH ×2 (09:12→18:29)
[2021-06-08] MEDS: DOCUSATE SODIUM 100 MG (COLACE) CAP PO SCH ×2 (09:12→20:44)
[2021-06-08] MEDS: DICLOFENAC 1% GEL 100 GM (VOLTAREN) TUBE TOP SCH ×4 (09:13→22:09)
[2021-06-08] MEDS: SENNOSIDES 8.6 MG (SENOKOT) TAB PO SCH (09:49)
[2021-06-08] MEDS: polyethylene glycoL POWDER 17 GM (MIRALAX) PACK PO SCH ×2 (09:49→19:13)
[2021-06-08] MEDS: SENNA W/DOCUSATE (SENOKOT S) TABLET PO SCH ×2 (09:49→20:44)
--- NOTE | 2021-06-08 10:45 | Physical Therapy Daily Note ---
PT Daily Note-Current Subjective States that he is feeling okay. Transfers SCALE: Activities may be completed with or without assistive devices. 2-Nsoeqmqvtq-orexnqt completes the activity by him/herself with no assistance from a helper. 5-Set-up or Clean-up Assistance-helper sets up or cleans up; patient completes activity. [place] assists only prior to or following the activity. 4-Supervision or Touching Assistance-helper provides verbal cues and/or touching/steadying and/or contact guard assistance as patient completes activity. Assistance may be provided throughout the activity or intermittently. 3-Partial/Moderate Assistance-helper does LESS THAN HALF the effort. [place] lifts, holds or supports trunk or limbs, but provides less than half the effort. 2-Substantial/Maximal Assistance-helper does MORE THAN HALF the effort. [place] lifts or holds trunk or limbs and provides more than half the effort. 8-Kayxzximn-tsymrn does ALL the effort. Patient does none of the effort to complete the activity. Or, the assistance of 2 or more helpers is required for the patient to complete the activity. If activity was not attempted, code reason: 7-Patient Refused. 9-Not Applicable-not attempted and the patient did not perform the activity before the current illness, exacerbation or injury. 10-Not Attempted due to Environmental Limitations-(lack of equipment, weather restraints, etc.). 88-Not Attempted due to Medical Conditions or Safety Concerns. Sit to Stand (QC): 5 Weight Bearing Right Lower Extremity: Right Weight Bearing/Tolerated Left Lower Extremity: Left Weight Bearing/Tolerated Left WBAT with knee immobilizer. Gait Training Does the Patient Walk?: Yes Distance: 75' x 2 Gait Persons Needed: 1 Gait Assistive Device: FWW Exercises NuStep Minutes: 15 NuStep Workload: 7 Assessment Current Status: Excellent Progress Patient doing well with functional mobility. PT Fdc Goals Full Service Supervisor Goals PT Fdc Goals Time Frame: Jun 22, 2021 Roll Left & Right (QC): 6 Sit to Lying (QC): 6 Lying-Sitting on Side/Bed(QC): 6 Sit to Stand (QC): 6 Chair/Wpa-js-Hglzl Xfer(QC): 6 Toilet Transfer (QC): 6 Car Transfer (QC): 6 Does the Patient Walk: Yes Walk 10 feet (QC): 6 Walk 50ft with 2 Turns (QC): 6 Walk 150 ft (QC): 6 Walking 10ft on Uneven Surface: 6 1 Step (curb) (QC): 6 4 Steps (QC): 6 12 Steps (QC): 6 Picking up an Object (QC): 6 Does the Pt use WC or Scooter?: No Wheel 50 feet with 2 turns (QC: 9 Type: N/A Wheel 150 feet: 9 Type: N/A PT Plan Treatment/Plan Treatment Plan: Continue Plan of Care Treatment Plan: Bed Mobility, Concurrent Therapy, Education, Functional Activity Johanne, Functional Strength, Group Therapy, Gait, Safety, Therapeutic Exercise, Transfers Treatment Duration: Jun 22, 2021 Frequency: At least 5 of 7 days/Wk (IRF) Estimated Hrs Per Day: 1.5 hours per day Patient and/or Family Agrees t: Yes Time/GCodes Time In: 1015 Time Out: 1040 Total Billed Treatment Time: 25 Total Billed Treatment 1, EX x 15, GT x 10 ZACKARY OCONNELL PT Jun 08, 2021 10:45
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
[2021-06-08 20:21] VITALS: BP 117/78
[2021-06-08] MEDS: amLODIPine 10 MG (NORVASC) TAB PO SCH (20:45)
[2021-06-09] MEDS: ENOXAPARIN 60 MG/0.6 ML (LOVENOX) SYR SC SCH ×2 (04:45→17:40)
[2021-06-09 07:30] VITALS: BP 142/86
[2021-06-09] MEDS: polyethylene glycoL POWDER 17 GM (MIRALAX) PACK PO SCH ×2 (08:34→19:42)
[2021-06-09] MEDS: SENNOSIDES 8.6 MG (SENOKOT) TAB PO SCH (08:34)
[2021-06-09] MEDS: LOSARTAN 100 MG (COZAAR) TABLET PO SCH (08:39)
[2021-06-09] MEDS: LACTOBACILLUS ACIDOPHILUS (PROBIOTIC) CAPSULE PO SCH ×2 (08:39→17:39)
[2021-06-09] MEDS: metFORMIN 500 MG (GLUCOPHAGE) TAB PO SCH ×2 (08:39→17:39)
[2021-06-09] MEDS: DOCUSATE SODIUM 100 MG (COLACE) CAP PO SCH ×2 (08:39→20:47)
[2021-06-09] MEDS: SENNA W/DOCUSATE (SENOKOT S) TABLET PO SCH ×2 (08:39→20:47)
[2021-06-09] MEDS: CEPHALEXIN 250 MG (KEFLEX) CAP PO SCH ×4 (08:39→20:47)
[2021-06-09] MEDS: DICLOFENAC 1% GEL 100 GM (VOLTAREN) TUBE TOP SCH ×4 (08:40→20:49)
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
[2021-06-09 19:07] VITALS: BP 119/64
[2021-06-09] MEDS: amLODIPine 10 MG (NORVASC) TAB PO SCH (20:48)
[2021-06-10] MEDS: ENOXAPARIN 60 MG/0.6 ML (LOVENOX) SYR SC SCH ×2 (04:54→17:25)
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
[2021-06-10 06:19] LABS: BASOPHILS % (AUTO) 1 % (0-10); EOSINOPHILS # (AUTO) 0.1 10^3/uL (0.0-0.3); EOSINOPHILS % (AUTO) 1 % (0-10); HEMATOCRIT 38 % (40-54); HEMOGLOBIN 12.1 g/dL (13.3-17.7); LYMPHOCYTES # (AUTO) 1.3 10^3/uL (1.0-4.0); LYMPHOCYTES % (AUTO) 19 % (12-44); MEAN CORPUSCULAR HEMOGLOBIN 29 pg (25-34); MEAN CORPUSCULAR HGB CONC 32 g/dL (32-36); MEAN CORPUSCULAR VOLUME 90 fL (80-99); MEAN PLATELET VOLUME 10.6 fL (9.0-12.2); MONOCYTES # (AUTO) 0.6 10^3/uL (0.0-1.0); MONOCYTES % (AUTO) 9 % (0-12); NEUTROPHILS # (AUTO) 4.7 10^3/uL (1.8-7.8); NEUTROPHILS % (AUTO) 69 % (42-75); PLATELET COUNT 376 10^3/uL (130-400); WHITE BLOOD COUNT 6.7 10^3/uL (4.3-11.0)
[2021-06-10 06:40] LABS: ALBUMIN 3.4 GM/DL (3.2-4.5); BILIRUBIN,TOTAL 0.6 MG/DL (0.1-1.0); CALCIUM 9.4 MG/DL (8.5-10.1); CREATININE SERUM 0.76 MG/DL (0.60-1.30); POTASSIUM 3.8 MMOL/L (3.6-5.0); TOTAL PROTEIN 6.9 GM/DL (6.4-8.2)
[2021-06-10] MEDS: DOCUSATE SODIUM 100 MG (COLACE) CAP PO SCH ×2 (07:39→20:38)
[2021-06-10] MEDS: LOSARTAN 100 MG (COZAAR) TABLET PO SCH (07:39)
[2021-06-10] MEDS: LACTOBACILLUS ACIDOPHILUS (PROBIOTIC) CAPSULE PO SCH ×2 (07:40→17:25)
[2021-06-10] MEDS: metFORMIN 500 MG (GLUCOPHAGE) TAB PO SCH ×2 (07:40→17:25)
[2021-06-10] MEDS: CEPHALEXIN 250 MG (KEFLEX) CAP PO SCH ×4 (07:40→20:38)
[2021-06-10] MEDS: DICLOFENAC 1% GEL 100 GM (VOLTAREN) TUBE TOP SCH ×4 (07:41→20:39)
[2021-06-10 07:44] VITALS: BP 131/86
[2021-06-10] MEDS: polyethylene glycoL POWDER 17 GM (MIRALAX) PACK PO SCH ×2 (08:41→19:08)
[2021-06-10] MEDS: SENNOSIDES 8.6 MG (SENOKOT) TAB PO SCH (08:42)
[2021-06-10] MEDS: SENNA W/DOCUSATE (SENOKOT S) TABLET PO SCH ×2 (08:42→20:38)
[2021-06-10] MEDS: ACETAMINOPHEN 325 MG TABLET PO PRN (12:33)
--- NOTE | 2021-06-10 12:58 | Occupational Ther Daily Note ---
OT Current Status-Daily Note Subjective Pt sitting in recliner, alert. No c/o pain. Pt agrees to therapy. Pt up ad carlitos in room. Mental Status/Objective Patient Orientation: Person, Place, Time, Situation Attachments: Knee Immobilizer, Other-See Comments (ulnar wrist splint) ADL-Treatment 1 Session ([id number]) PT/OT co treat with pt, skills of 2 clinicians required for skilled treatment to decrease fall risk, increase activity tolerance and functional mobility. PT focused on transfers and mobility, OT focused on ADLs, B UE placement, and functional mobility. Pt able to transfer recliner->platform FWW using arm rests and platform FWW for stability by self. Pt ambulated to toilet using platform FWW by self. Pt standing at sink to complete grooming task independently using platform FWW for stability. Pt participated in functional mobility task to ambulate down jewell and into therapy gym using platform FWW SBA. See PT notes on transfers and mobility. Pt participated in dynamic standing balance activities of balloon toss and ball toss to increase ROM and standing balance. After session, pt sitting in recliner with call light/phone within reach. All needs met in room. Therapy Code Descriptions/Definitions Functional [place] Measure: 0=Not Assessed/NA 4=Minimal Assistance 1=Total Assistance 5=Supervision or Setup 2=Maximal Assistance 6=Modified [place] 3=Moderate Assistance 7=Complete IndependenceSCALE: Activities may be completed with or without assistive devices. 9-Pxkuyahhkv-vxdausg completes the activity by him/herself with no assistance from a helper. 5-Set-up or Clean-up Assistance-helper sets up or cleans up; patient completes activity. [place] assists only prior to or following the activity. 4-Supervision or Touching Assistance-helper provides verbal cues and/or touching/steadying and/or contact guard assistance as patient completes activity. Assistance may be provided throughout the activity or intermittently. 3-Partial/Moderate Assistance-helper does LESS THAN HALF the effort. [place] lifts, holds or supports trunk or limbs, but provides less than half the effort. 2-Substantial/Maximal Assistance-helper does MORE THAN HALF the effort. [place] lifts or holds trunk or limbs and provides more than half the effort. 4-Fvoaroavk-krngbk does ALL the effort. Patient does none of the effort to c omplete the activity. Or, the assistance of 2 or more helpers is required for the patient to complete the activity. If activity was not attempted, code reason: 7-Patient Refused. 9-Not Applicable-not attempted and the patient did not perform the activity before the current illness, exacerbation or injury. 10-Not Attempted due to Environmental Limitations-(lack of equipment, weather restraints, etc.). 88-Not Attempted due to Medical Conditions or Safety Concerns. Oral Hygiene (QC): 6 On/Off Footwear: 6 (Independent with footwear using sock aide and program coordinator for residence life.) Toileting Hygiene (QC): 6 (Independent with hygiene and clothing manipulation.) Other Treatment 2nd Session ([id number]) PT/OT cotreat with pt. 2 skilled clinicians required for skilled treatment to decrease fall risk and increase functional mobility. PT focused on transfers, standing balance, and mobility, OT focused on dynamic standing balance, functional mobility, and ROM. Pt ambulated to therapy gym using platform FWW for stability. Pt engaged in dynamic standing activity at parallel bars, reaching beyond CARLOS to grasp rings and place them on post at different heights . Pt completed again on raised surface. See PT notes on mobility and transfers. After session, pt left in room, all needs met. OT Short Term Goals Short Term Goals Time Frame: Jun 05, 2021 Oral hygiene: 5 Toileting hygiene: 4 Shower/bathe self: 4 Upper body dressin Lower body dressin Putting on/taking off footwear: 4 OT Mental Telepathist Goals Fdc Goals Time Frame: Jun 21, 2021 Eating (QC): 6 Oral Hygiene (QC): 6 Toileting Hygiene (QC): 6 Shower/Bathe Self (QC): 6 Upper Body Dressing (QC): 6 Lower Body Dressing (QC): 6 On/Off Footwear (QC): 6 Additional Goals: 1-Demonstrate ADL Tasks, 2-Verbalize Understanding, 3- ImproveStrength/Johanne 1=Demonstrate adherence to instructed precautions during ADL tasks. 2=Patient will verbalize/demonstrate understanding of assistive devices/modifications for ADL. 3=Patient will improve strength/tolerance for activity to enable patient to perform ADL's. OT Education/Plan Problem List/Assessment Assessment: Dependent Transfers, Impaired Coordination, Impaired Funct Balance, Impaired Self-Care Skills Discharge Recommendations Plan/Recommendations: Continue POC Treatment Plan/Plan of Care Patient would benefit from OT for education, treatment and training to promote independence in ADL's, mobility, safety and/or upper extremity function for ADL's. Plan of Care: ADL Retraining, Functional Mobility, Group Exercise/Act as Ind, UE Funct Exercise/Act Treatment Duration: Jun 21, 2021 Frequency: At least 5 of 7 days/Wk (IRF) Estimated Hrs Per Day: 1.5 hours per day Agreement: Yes Rehab Potential: Good Time/GCodes Start Time: 11:00 (1330) Stop Time: 12:00 (1400) Total Time Billed (hr/min): 90 Billed Treatment Time 1 Visit ADL (15 min) FA 3 (45 min) Co treat with PT [id number], 1 Visit FA 2 (30 min) Co treat with PT [id number] MARÍA GIRARD Jun 10, 2021 12:58
--- NOTE | 2021-06-10 13:56 | Physical Therapy Daily Note ---
PT Daily Note-Current Subjective Patient in recliner pre tx, agrees to PT, voices no complaints of pain. Will be co-treating with OT due to poor patient mobility, coordinate UE and LE during activity, safety and reduce risk of falls, and to work on more advanced balance activities. Appearance Patient in recliner post tx. Patient will now be independent in his room, nurse notified. Mental Status Patient Orientation: Person, Place, Situation, Normal For Age Transfers SCALE: Activities may be completed with or without assistive devices. 1-Bsvfzqnotm-zyapfqp completes the activity by him/herself with no assistance from a helper. 5-Set-up or Clean-up Assistance-helper sets up or cleans up; patient completes activity. [place] assists only prior to or following the activity. 4-Supervision or Touching Assistance-helper provides verbal cues and/or touching/steadying and/or contact guard assistance as patient completes activity. Assistance may be provided throughout the activity or intermittently. 3-Partial/Moderate Assistance-helper does LESS THAN HALF the effort. [place] lifts, holds or supports trunk or limbs, but provides less than half the effort. 2-Substantial/Maximal Assistance-helper does MORE THAN HALF the effort. [place] lifts or holds trunk or limbs and provides more than half the effort. 7-Sfgqgcupj-emfcmw does ALL the effort. Patient does none of the effort to complete the activity. Or, the assistance of 2 or more helpers is required for the patient to complete the activity. If activity was not attempted, code reason: 7-Patient Refused. 9-Not Applicable-not attempted and the patient did not perform the activity before the current illness, exacerbation or injury. 10-Not Attempted due to Environmental Limitations-(lack of equipment, weather restraints, etc.). 88-Not Attempted due to Medical Conditions or Safety Concerns. Roll Left & Right (QC): 6 Sit to Lying (QC): 6 Lying to Sitting/Side of Bed(Q: 6 Sit to Stand (QC): 6 Chair/Nxv-dm-Cfhko Xfer(QC): 6 Toilet Transfer (QC): 6 Car Transfer (QC): 6 Weight Bearing Right Lower Extremity: Right Weight Bearing/Tolerated Left Lower Extremity: Left Weight Bearing/Tolerated Left WBAT with knee immobilizer. Gait Training Distance: 150'x2 Walk 10 feet (QC): 6 Walk 50 ft with 2 Turns(QC): 6 Walk 150 ft (QC): 6 Walking 10ft/uneven surface-QC: 6 Gait Assistive Device: Walker Platform slow but steady ambulation, leans heavily on walker Wheelchair Training Wheel 50 ft with 2 turns (QC): 9 Wheel 150 ft (QC): 9 Stair Training Stair Training: Handrails/: 2 handrails 1 Step (curb) (QC): 4 4 Steps (QC): 4 12 Steps (QC): 88 Stairs: Pattern: Step to Balance Picking up an Object (QC): 4 Exercises standing balance activity hitting balloon and catching/throwing ball (2 bouts of each) Treatments PT performed bed mobility and transfers, ambulation, stair training, balance training, OT performed balance training, UE positioning and safety during activity Assessment Current Status: Fair Progress Patient had less leg pain after doing stairs than he had last time PT Crm Marketing Executive Goals Half-Way Goals PT Crm Marketing Executive Goals Time Frame: Jun 22, 2021 Roll Left & Right (QC): 6 Sit to Lying (QC): 6 Lying-Sitting on Side/Bed(QC): 6 Sit to Stand (QC): 6 Chair/Zbc-jw-Obmxm Xfer(QC): 6 Toilet Transfer (QC): 6 Car Transfer (QC): 6 Does the Patient Walk: Yes Walk 10 feet (QC): 6 Walk 50ft with 2 Turns (QC): 6 Walk 150 ft (QC): 6 Walking 10ft on Uneven Surface: 6 1 Step (curb) (QC): 6 4 Steps (QC): 6 12 Steps (QC): 6 Picking up an Object (QC): 6 Does the Pt use WC or Scooter?: No Wheel 50 feet with 2 turns (QC: 9 Type: N/A Wheel 150 feet: 9 Type: N/A PT Plan Problem List Problem List: Activity Tolerance, Functional Strength, Safety, Balance, Gait, Transfer, Bed Mobility, ROM Treatment/Plan Treatment Plan: Continue Plan of Care Treatment Plan: Bed Mobility, Concurrent Therapy, Education, Functional Activity Johanne, Functional Strength, Group Therapy, Gait, Safety, Therapeutic Exercise, Transfers Treatment Duration: Jun 22, 2021 Frequency: At least 5 of 7 days/Wk (IRF) Estimated Hrs Per Day: 1.5 hours per day Patient and/or Family Agrees t: Yes Safety Risks/Education Patient Education: Gait Training, Transfer Techniques, Steps, Reviewed Precautions, Correct Positioning, Safety Issues Teaching Recipient: Patient Teaching Methods: Demonstration, Discussion Response to Teaching: Reinforcement Needed Time/GCodes Time In: 1100 Time Out: 1200 Total Billed Treatment Time: 60 Total Billed Treatment 1 visit EX 30' FA 30' co-treated with OT for 60' RACHEL BARBOZA PT Jun 10, 2021 13:56
--- NOTE | 2021-06-10 14:46 | Physical Therapy Daily Note ---
PT Daily Note-Current Subjective Patient in recliner pre tx, agrees to PT, voices no complaints of pain. Will be co-treating with OT to work on more advanced balance training, coordinate UE and LE during activity, safety and reduce risk of falls. Appearance Patient in recliner post tx with nurse call, phone, tray, all needs met. Mental Status Patient Orientation: Normal For Age Transfers SCALE: Activities may be completed with or without assistive devices. 8-Bfeljkpwqi-cqjrqko completes the activity by him/herself with no assistance from a helper. 5-Set-up or Clean-up Assistance-helper sets up or cleans up; patient completes activity. [place] assists only prior to or following the activity. 4-Supervision or Touching Assistance-helper provides verbal cues and/or touching/steadying and/or contact guard assistance as patient completes activity. Assistance may be provided throughout the activity or intermittently. 3-Partial/Moderate Assistance-helper does LESS THAN HALF the effort. [place] lifts, holds or supports trunk or limbs, but provides less than half the effort. 2-Substantial/Maximal Assistance-helper does MORE THAN HALF the effort. [place] lifts or holds trunk or limbs and provides more than half the effort. 5-Ggdmpqwrm-cvvqee does ALL the effort. Patient does none of the effort to complete the activity. Or, the assistance of 2 or more helpers is required for the patient to complete the activity. If activity was not attempted, code reason: 7-Patient Refused. 9-Not Applicable-not attempted and the patient did not perform the activity before the current illness, exacerbation or injury. 10-Not Attempted due to Environmental Limitations-(lack of equipment, weather restraints, etc.). 88-Not Attempted due to Medical Conditions or Safety Concerns. Sit to Stand (QC): 6 Chair/Uhf-rp-Jmhjp Xfer(QC): 6 Weight Bearing Right Lower Extremity: Right Weight Bearing/Tolerated Left Lower Extremity: Left Weight Bearing/Tolerated Left WBAT with knee immobilizer. Gait Training Distance: 150'x2 Walk 10 feet (QC): 6 Walk 50 ft with 2 Turns(QC): 6 Walk 150 ft (QC): 6 Gait Assistive Device: Walker Platform slow but steady ambulation, leans heavily on walker Exercises balance training reaching for rings while on airex pad and while in a tandem stance (both ways) Treatments PT performed transfers, ambulation, balance training, OT performed balance training, UE positioning and safety during activity Assessment Current Status: Fair Progress independent with ambulation PT Usp Goals Rotary Cutter Feeder Goals PT Usp Goals Time Frame: Jun 22, 2021 Roll Left & Right (QC): 6 Sit to Lying (QC): 6 Lying-Sitting on Side/Bed(QC): 6 Sit to Stand (QC): 6 Chair/Ijy-gx-Wsxsy Xfer(QC): 6 Toilet Transfer (QC): 6 Car Transfer (QC): 6 Does the Patient Walk: Yes Walk 10 feet (QC): 6 Walk 50ft with 2 Turns (QC): 6 Walk 150 ft (QC): 6 Walking 10ft on Uneven Surface: 6 1 Step (curb) (QC): 6 4 Steps (QC): 6 12 Steps (QC): 6 Picking up an Object (QC): 6 Does the Pt use WC or Scooter?: No Wheel 50 feet with 2 turns (QC: 9 Type: N/A Wheel 150 feet: 9 Type: N/A PT Plan Problem List Problem List: Activity Tolerance, Functional Strength, Safety, Balance, Gait, Transfer, Bed Mobility, ROM Treatment/Plan Treatment Plan: Continue Plan of Care Treatment Plan: Bed Mobility, Concurrent Therapy, Education, Functional Activity Johanne, Functional Strength, Group Therapy, Gait, Safety, Therapeutic Exercise, Transfers Treatment Duration: Jun 22, 2021 Frequency: At least 5 of 7 days/Wk (IRF) Estimated Hrs Per Day: 1.5 hours per day Patient and/or Family Agrees t: Yes Safety Risks/Education Patient Education: Gait Training, Transfer Techniques, Reviewed Precautions, Correct Positioning, Safety Issues Teaching Recipient: Patient Teaching Methods: Demonstration, Discussion Response to Teaching: Reinforcement Needed Time/GCodes Time In: 1330 Time Out: 1400 Total Billed Treatment Time: 30 Total Billed Treatment 1 visit EX 20' GT 10' RACHEL BARBOZA PT Jun 10, 2021 14:45
[2021-06-10 18:00] VITALS: BP 143/86
[2021-06-10 20:00] VITALS: BP 143/86
[2021-06-10] MEDS: amLODIPine 10 MG (NORVASC) TAB PO SCH (20:38)
[2021-06-11] MEDS: ENOXAPARIN 60 MG/0.6 ML (LOVENOX) SYR SC SCH ×2 (05:18→17:27)
[2021-06-11 07:46] VITALS: BP 146/83
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
--- NOTE | 2021-06-11 08:58 | Physical Therapy Daily Note ---
PT Daily Note-Current Subjective Pt in recliner and agrees to PT. Pt has pain in R knee/thigh 3/10. Pain Numeric Pain Scale: 3 Location: Right Location Body Site: Thigh Mental Status Patient Orientation: Person, Place, Time, Situation Transfers SCALE: Activities may be completed with or without assistive devices. 6-Ofkziitvlz-ybretsk completes the activity by him/herself with no assistance from a helper. 5-Set-up or Clean-up Assistance-helper sets up or cleans up; patient completes activity. [place] assists only prior to or following the activity. 4-Supervision or Touching Assistance-helper provides verbal cues and/or touching/steadying and/or contact guard assistance as patient completes activity. Assistance may be provided throughout the activity or intermittently. 3-Partial/Moderate Assistance-helper does LESS THAN HALF the effort. [place] lifts, holds or supports trunk or limbs, but provides less than half the effort. 2-Substantial/Maximal Assistance-helper does MORE THAN HALF the effort. [place] lifts or holds trunk or limbs and provides more than half the effort. 5-Myukjfpdq-yqkpyo does ALL the effort. Patient does none of the effort to complete the activity. Or, the assistance of 2 or more helpers is required for the patient to complete the activity. If activity was not attempted, code reason: 7-Patient Refused. 9-Not Applicable-not attempted and the patient did not perform the activity before the current illness, exacerbation or injury. 10-Not Attempted due to Environmental Limitations-(lack of equipment, weather restraints, etc.). 88-Not Attempted due to Medical Conditions or Safety Concerns. Roll Left & Right (QC): 6 Sit to Lying (QC): 6 Lying to Sitting/Side of Bed(Q: 6 Sit to Stand (QC): 6 Chair/Fcf-id-Vejcu Xfer(QC): 6 Toilet Transfer (QC): 6 Car Transfer (QC): 6 Weight Bearing Right Lower Extremity: Right Weight Bearing/Tolerated Left Lower Extremity: Left Weight Bearing/Tolerated Left WBAT with knee immobilizer. Gait Training Does the Patient Walk?: Yes Distance: 150' Walk 10 feet (QC): 6 Walk 50 ft with 2 Turns(QC): 6 Walk 150 ft (QC): 6 Walking 10ft/uneven surface-QC: 5 Gait Assistive Device: Walker Platform Pt has slow, antalgic but overall steady gait Wheelchair Training Does the Pt Use a Wheelchair?: No Type of Wheelchair: N/A Stair Training Stair Training: Handrails/: 2 handrails #of Steps: 12 1 Step (curb) (QC): 5 4 Steps (QC): 5 12 Steps (QC): 5 Stairs: Pattern: Step to Pt able to complete 12 steps SBA, states he will have 2 handrails at home Balance Picking up an Object (QC): 6 Exercises NuStep Minutes: 15 NuStep Workload: 8 Treatments 8-830: Pt in recliner, dons shirt then transfers to bed. Pt completes bed mobility, then amb 150' on ARU to car transfer. Pt completes stair training, amb over an uneven surface, and is able to pick object up from floor Ind. Pt then completes NuStep on WL of 8 for a total of [address] through NuStep OT enters tx. 830-9 Co-treat: OT focused on dressing, bathing, and ADLs. PT focused on gait, transfers, and LE strengthening. Pt completes last 8 mins of NuStep with 2# wts on wrist. Pt then amb 150' back to room and is able to navigate around room to set up for shower. Pt is entering shower with OT as PT exits tx. Pt remains with all needs met. Assessment Current Status: Good Progress Pt able to complete all transfers, mobility, and stairs Indep. Ready for DC tomorrow PT Senior Care Goals Footwear Sales Coordinator Goals PT Senior Care Goals Time Frame: Jun 22, 2021 Roll Left & Right (QC): 6 Sit to Lying (QC): 6 Lying-Sitting on Side/Bed(QC): 6 Sit to Stand (QC): 6 Chair/Bbh-fn-Yznax Xfer(QC): 6 Toilet Transfer (QC): 6 Car Transfer (QC): 6 Does the Patient Walk: Yes Walk 10 feet (QC): 6 Walk 50ft with 2 Turns (QC): 6 Walk 150 ft (QC): 6 Walking 10ft on Uneven Surface: 6 1 Step (curb) (QC): 6 4 Steps (QC): 6 12 Steps (QC): 6 Picking up an Object (QC): 6 Does the Pt use WC or Scooter?: No Wheel 50 feet with 2 turns (QC: 9 Type: N/A Wheel 150 feet: 9 Type: N/A PT Plan Treatment/Plan Treatment Plan: Continue Plan of Care Treatment Plan: Bed Mobility, Concurrent Therapy, Education, Functional Activity Johanne, Functional Strength, Group Therapy, Gait, Safety, Therapeutic Exercise, Transfers Treatment Duration: Jun 22, 2021 Frequency: At least 5 of 7 days/Wk (IRF) Estimated Hrs Per Day: 1.5 hours per day Patient and/or Family Agrees t: Yes Time/GCodes Time In: 800 Time Out: 900 Total Billed Treatment Time: 60 Total Billed Treatment 1, FA x2, EX, GT 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
[2021-06-11] MEDS: metFORMIN 500 MG (GLUCOPHAGE) TAB PO SCH ×2 (09:34→17:27)
[2021-06-11] MEDS: LOSARTAN 100 MG (COZAAR) TABLET PO SCH (09:34)
[2021-06-11] MEDS: LACTOBACILLUS ACIDOPHILUS (PROBIOTIC) CAPSULE PO SCH ×2 (09:34→17:27)
[2021-06-11] MEDS: DOCUSATE SODIUM 100 MG (COLACE) CAP PO SCH ×2 (09:34→23:33)
[2021-06-11] MEDS: CEPHALEXIN 250 MG (KEFLEX) CAP PO SCH ×4 (09:34→23:34)
[2021-06-11] MEDS: SENNA W/DOCUSATE (SENOKOT S) TABLET PO SCH ×2 (09:34→22:13)
[2021-06-11] MEDS: DICLOFENAC 1% GEL 100 GM (VOLTAREN) TUBE TOP SCH ×4 (09:35→23:35)
[2021-06-11] MEDS: SENNOSIDES 8.6 MG (SENOKOT) TAB PO SCH (09:40)
[2021-06-11] MEDS: polyethylene glycoL POWDER 17 GM (MIRALAX) PACK PO SCH ×2 (09:40→22:12)
--- NOTE | 2021-06-11 09:58 | Occupational Ther Daily Note ---
OT Current Status-Daily Note Subjective Pt with PT in therapy gym, alert and on NuStep. No c/o pain. Pt agrees to therapy. Mental Status/Objective Patient Orientation: Person, Place, Time, Situation Attachments: Knee Immobilizer, Other-See Comments (ulnar wrist splint) ADL-Treatment Pt agrees to shower, platform FWW<->shower bench using platform FWW for stability. After therapy, pt sitting in recliner with call light/phone in reach. All needs met in room. Therapy Code Descriptions/Definitions Functional [place] Measure: 0=Not Assessed/NA 4=Minimal Assistance 1=Total Assistance 5=Supervision or Setup 2=Maximal Assistance 6=Modified [place] 3=Moderate Assistance 7=Complete IndependenceSCALE: Activities may be completed with or without assistive devices. 4-Htbgiwzsoo-krdlrpk completes the activity by him/herself with no assistance from a helper. 5-Set-up or Clean-up Assistance-helper sets up or cleans up; patient completes activity. [place] assists only prior to or following the activity. 4-Supervision or Touching Assistance-helper provides verbal cues and/or touching/steadying and/or contact guard assistance as patient completes activity. Assistance may be provided throughout the activity or intermittently. 3-Partial/Moderate Assistance-helper does LESS THAN HALF the effort. [place] lifts, holds or supports trunk or limbs, but provides less than half the effort. 2-Substantial/Maximal Assistance-helper does MORE THAN HALF the effort. [place] lifts or holds trunk or limbs and provides more than half the effort. 5-Lnftlruip-xwsrzy does ALL the effort. Patient does none of the effort to complete the activity. Or, the assistance of 2 or more helpers is required for the patient to complete the activity. If activity was not attempted, code reason: 7-Patient Refused. 9-Not Applicable-not attempted and the patient did not perform the activity before the current illness, exacerbation or injury. 10-Not Attempted due to Environmental Limitations-(lack of equipment, weather restraints, etc.). 88-Not Attempted due to Medical Conditions or Safety Concerns. Eating (QC): 6 (Per clinical judgment, pt is independent.) Oral Hygiene (QC): 6 (Pt independent standing at sink using platform FWW for stability.) Bathing Location: L Arm, R Arm, L Upper Leg, R Upper Leg, L Lower Leg (including foot), R Lower Leg (including foot), Chest, Abdomen, Buttocks, Perineal Area Shower/Bathe Self (QC): 6 (Independent sitting on shower bench using AE to bathe.) Upper Body Dressing (QC): 6 (Independent using platform FWW gathering clothing then don/doff. ) Lower Body Dressing (QC): 6 (Pt independent in gathering clothing using platform FWW independent in don/doffing.) On/Off Footwear: 6 (Pt independent using AE to don/doff socks, shoes, and knee immobilizer.) Toileting Hygiene (QC): 6 (Independent) Toilet Transfer (QC): 6 (Independent using grabbars and platform FWW.) Other Treatment PT/OT cotreat with pt ([id number]), 2 skilled clinicians required for skilled instructions to decrease fall risk and increase functional mobility and activity tolerance. PT focused on transfers and mobility, OT focused on UB strengthening and ADLs. Pt wore 2 lb wrist weights while completing NuStep for 8 min to increase B UE strength. Pt ambulated from therapy gym to room using platform FWW. OT Short Term Goals Short Term Goals Time Frame: Jun 05, 2021 Oral hygiene: 5 Toileting hygiene: 4 Shower/bathe self: 4 Upper body dressin Lower body dressin Putting on/taking off footwear: 4 OT Personnel Research Scientist Goals Skilled Nursing Goals Time Frame: Jun 21, 2021 Eating (QC): 6 (met) Oral Hygiene (QC): 6 (met) Toileting Hygiene (QC): 6 (met) Shower/Bathe Self (QC): 6 (met) Upper Body Dressing (QC): 6 (met) Lower Body Dressing (QC): 6 (met) On/Off Footwear (QC): 6 (met) Additional Goals: 1-Demonstrate ADL Tasks, 2-Verbalize Understanding, 3- ImproveStrength/Johanne 1=Demonstrate adherence to instructed precautions during ADL tasks. 2=Patient will verbalize/demonstrate understanding of assistive devices/modifications for ADL. 3=Patient will improve strength/tolerance for activity to enable patient to perform ADL's. OT Education/Plan Problem List/Assessment Assessment: Decreased UE Strength, Impaired Funct Balance, Impaired Self-Care Skills Discharge Recommendations Plan/Recommendations: Continue POC Treatment Plan/Plan of Care Patient would benefit from OT for education, treatment and training to promote independence in ADL's, mobility, safety and/or upper extremity function for ADL's. Plan of Care: ADL Retraining, Functional Mobility, Group Exercise/Act as Ind, UE Funct Exercise/Act Treatment Duration: Jun 21, 2021 Frequency: At least 5 of 7 days/Wk (IRF) Estimated Hrs Per Day: 1.5 hours per day Agreement: Yes Rehab Potential: Good Time/GCodes Start Time: 08:30 Stop Time: 10:00 Total Time Billed (hr/min): 90 Billed Treatment Time 1 Visit- EX (15 min) ADL 5 (75 min) Co treat with PT ([id number]), Individual ([id number]) MARÍA GIRARD Jun 11, 2021 09:58
--- NOTE | 2021-06-11 12:09 | Physical Therapy Daily Note ---
PT Daily Note-Current Subjective Pt in recliner upon arrival and agrees to tx. Pt has no c/o pain but states tightness in R thigh Mental Status Patient Orientation: Person, Place, Time, Situation Transfers SCALE: Activities may be completed with or without assistive devices. 6-Kngsdiajcn-xcdvzci completes the activity by him/herself with no assistance from a helper. 5-Set-up or Clean-up Assistance-helper sets up or cleans up; patient completes activity. [place] assists only prior to or following the activity. 4-Supervision or Touching Assistance-helper provides verbal cues and/or touching/steadying and/or contact guard assistance as patient completes act ivity. Assistance may be provided throughout the activity or intermittently. 3-Partial/Moderate Assistance-helper does LESS THAN HALF the effort. [place] lifts, holds or supports trunk or limbs, but provides less than half the effort. 2-Substantial/Maximal Assistance-helper does MORE THAN HALF the effort. [place] lifts or holds trunk or limbs and provides more than half the effort. 1-Nudesvbci-rpgknu does ALL the effort. Patient does none of the effort to complete the activity. Or, the assistance of 2 or more helpers is required for the patient to complete the activity. If activity was not attempted, code reason: 7-Patient Refused. 9-Not Applicable-not attempted and the patient did not perform the activity before the current illness, exacerbation or injury. 10-Not Attempted due to Environmental Limitations-(lack of equipment, weather restraints, etc.). 88-Not Attempted due to Medical Conditions or Safety Concerns. Sit to Stand (QC): 6 Weight Bearing Right Lower Extremity: Right Weight Bearing/Tolerated Left Lower Extremity: Left Weight Bearing/Tolerated Left WBAT with knee immobilizer. Gait Training Does the Patient Walk?: Yes Distance: 250' x2 Walk 10 feet (QC): 6 Walk 50 ft with 2 Turns(QC): 6 Walk 150 ft (QC): 6 Gait Assistive Device: Walker Platform Pt has slow, antalgic gait Wheelchair Training Does the Pt Use a Wheelchair?: No Exercises Standing: Hip Abduction, Hamstring curls, Heel/toe raises, Marching, Mini squats Standing Reps: 10 Treatments Pt amb 250' on ARU and enters therapy gym. Pt completes standing exercises in // bars, then amb another 250' and returns to room. Pt Ad Lina in room, removes belt by self and was left with all needs met. 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 Drill Press Set Up Operator Goals PT [facility] Goals Time Frame: Jun 22, 2021 Roll Left & Right (QC): 6 Sit to Lying (QC): 6 Lying-Sitting on Side/Bed(QC): 6 Sit to Stand (QC): 6 Chair/Mal-zh-Textk Xfer(QC): 6 Toilet Transfer (QC): 6 Car Transfer (QC): 6 Does the Patient Walk: Yes Walk 10 feet (QC): 6 Walk 50ft with 2 Turns (QC): 6 Walk 150 ft (QC): 6 Walking 10ft on Uneven Surface: 6 1 Step (curb) (QC): 6 4 Steps (QC): 6 12 Steps (QC): 6 Picking up an Object (QC): 6 Does the Pt use WC or Scooter?: No Wheel 50 feet with 2 turns (QC: 9 Type: N/A Wheel 150 feet: 9 Type: N/A PT Plan Treatment/Plan Treatment Plan: Continue Plan of Care Treatment Plan: Bed Mobility, Concurrent Therapy, Education, Functional Activity Johanne, Functional Strength, Group Therapy, Gait, Safety, Therapeutic Exercise, Transfers Treatment Duration: Jun 22, 2021 Frequency: At least 5 of 7 days/Wk (IRF) Estimated Hrs Per Day: 1.5 hours per day Patient and/or Family Agrees t: Yes Time/GCodes Time In: 1145 Time Out: 1215 Total Billed Treatment Time: 30 Total Billed Treatment 1, Ex, GT [employer] Jun 11, 2021 12:09
[2021-06-11 20:00] VITALS: BP 137/86
[2021-06-11] MEDS ORDERED: LOSA1TAB23 PO (21:25)
[2021-06-11] MEDS ORDERED: AMLO-251 PO (21:25)
[2021-06-11] MEDS ORDERED: CEPH250C PO (21:25)
[2021-06-11] MEDS ORDERED: ACHYD1T PO (21:25)
[2021-06-11] MEDS ORDERED: DICL100G13 TOP (21:25)
[2021-06-11] MEDS: amLODIPine 10 MG (NORVASC) TAB PO SCH (23:34)
[2021-06-12] MEDS: ENOXAPARIN 60 MG/0.6 ML (LOVENOX) SYR SC SCH (06:47)
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
[2021-06-12] MEDS: metFORMIN 500 MG (GLUCOPHAGE) TAB PO SCH (08:00)
[2021-06-12] MEDS: LACTOBACILLUS ACIDOPHILUS (PROBIOTIC) CAPSULE PO SCH (08:00)
[2021-06-12] MEDS: CEPHALEXIN 250 MG (KEFLEX) CAP PO SCH ×2 (08:00→13:22)
[2021-06-12] MEDS: SENNA W/DOCUSATE (SENOKOT S) TABLET PO SCH (08:00)
[2021-06-12] MEDS: DOCUSATE SODIUM 100 MG (COLACE) CAP PO SCH (08:00)
[2021-06-12] MEDS: LOSARTAN 100 MG (COZAAR) TABLET PO SCH (08:00)
[2021-06-12] MEDS: DICLOFENAC 1% GEL 100 GM (VOLTAREN) TUBE TOP SCH ×2 (08:02→13:23)
[2021-06-12 08:04] VITALS: BP 116/71
[2021-06-12] MEDS: SENNOSIDES 8.6 MG (SENOKOT) TAB PO SCH (08:05)
[2021-06-12] MEDS: polyethylene glycoL POWDER 17 GM (MIRALAX) PACK PO SCH (08:05)
[2021-06-12] MEDS: ACETAMINOPHEN 325 MG TABLET PO PRN (08:40)
--- NOTE | 2021-06-12 09:18 | D/C HH Face to Face Order ---
D/C HH Face to Face Orders Reconcile Patient Problems Problems Reviewed?: Yes Instructions for Patient HH Patient Instructions/FollowUp: PCP to critical access hospital care Physician to follow Patient: Monae Discharge Diet for Home: No Restrictions Patient Problems: Right hip fracture Patient Data-Allergies,Ht & Wt Patient Allergies: Coded Allergies: No Known Drug Allergies (Unverified , 02/10/19) Height (Feet): 5 Height (Inches): 10.00 Weight (Pounds): 350 Home Health Need/Face to Face Date of Face to Face: Jun 12, 2021 Clinical Findings: Generalized weakness and fatigue, Instability, Muscle weakness, Unsteady gait I have seen Pt [id number]: Yes Discharged To: Home Diagnosis/Conditions: Right hip fracture Patient is Homebound due to: Josias fall risk due to instabilty, Muscle weakness, Pain w/ambulation Homebound Status Due to the above stated illness, injury or surgical procedure (medical condition or diagnosis) and associated clinical findings, the patient is homebound because of his/her inability to leave home except with aid of a supportive device and/or person AND leaving the home requires a considerable and taxing effort or is medically contraindicated. Pt req the following assistanc: [facility] Nursing Orders Home Health Services Order: Nursing Services, Pulverizer-Evaluate & Treat, Physical Therapy-Evaluate & Treat Certify Stmt I certify that this patient is under my care and that I, a nurse practitioner or a physician; a dental chairside assistant working with me, had a face to face encounter that - meets the physician face to face encounter requirements with this patient as dated. CHARLEY SIFUENTES DO Jun 12, 2021 09:18
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
[2021-06-12 14:55] VITALS: BP 116/71
--- NOTE | 2021-06-14 09:42 | Therapy Team Discharge Summary ---
Therapy Discharge Summary Discharge Recommendations Date of Discharge Jun 12, 2021 at 15:31 Physical Therapy Pt in recliner, dons shirt then transfers to bed. Pt completes bed mobility, then amb 150' on ARU to car transfer. Pt completes stair training, amb over an uneven surface, and is able to pick object up from floor Ind. Pt then completes NuStep on WL of 8 for a total of [address] through NuStep OT enters tx. OT focused on dressing, bathing, and ADLs. PT focused on gait, transfers, and LE strengthening. Pt completes last 8 mins of NuStep with 2# wts on wrist. Pt then amb 150' back to room and is able to navigate around room to set up for shower. Patient demonstrates [place] with all bed mobility and transfers. He requires setup for stairs and gait, however demonstrates significant improvement from initial evaluation. Overall patient has obtained good progress and is ready for D/C tomorrow Occupational Therapy Decreased UE Strength, Impaired Funct Balance, Impaired Self-Care Skills PT Coordinator Skill Training Program Goals Coordinator Skill Training Program Goals PT Usp Goals Time Frame: Jun 22, 2021 Roll Left to Right (QC): 6 (MET) Sit to Lying (QC): 6 (MET) Lying-Sitting on Side/Bed(QC): 6 (MET) Sit to Stand (QC): 6 (MET) Chair/Scq-uk-[id number] Xfer(QC): 6 (MET) Car Transfer (QC): 6 (MET) Does the Patient Walk: Yes Walk 10 feet (QC): 6 Walk 10ft-Uneven Surface(QC): 6 Walk 50ft with 2 Turns (QC): 6 Walk 150 ft (QC): 6 Does the Pt use WC or Scooter?: No Wheel 50 feet with 2 turns (QC: 9 1 Step (curb) (QC): 6 4 Steps (QC): 6 12 Steps (QC): 6 Picking up an Object (QC): 6 (MET) OT Coordinator Skill Training Program Goals Coordinator Skill Training Program Goals Time Frame: Jun 21, 2021 Eating (QC): 6 (met) Oral Hygiene (QC): 6 (met) Shower/Bathe Self (QC): 6 (met) Upper Body Dressing (QC): 6 (met) Lower Body Dressing (QC): 6 (met) On/Off Footwear (QC): 6 (met) Toileting Hygiene (QC): 6 (met) Toilet/Commode Transfer (QC): 6 Additional Goals: 1-Demonstrate ADL Tasks, 2-Verbalize Understanding, 3- ImproveStrength/Johanne 1=Demonstrate adherence to instructed precautions during ADL tasks. 2=Patient will verbalize/demonstrate understanding of assistive devices/modifications for ADL. 3=Patient will improve strength/tolerance for activity to enable patient to perform ADL's. HANS CAZARES PT Jun 14, 2021 09:42
== END 2021-06-12 15:31 | disposition home health service (06) | DRG 560 ==
PROVIDERS: ADMIT Internal Medicine; ATTEND Internal Medicine
DX: S72.321D Displaced transverse fracture of shaft of right femur, subsequent encounter for closed fracture with routine healing (principal); Z68.43 Body mass index [BMI] 50.0-59.9, adult; S62.600D Fracture of unspecified phalanx of right index finger, subsequent encounter for fracture with routine healing; S22.41XD Multiple fractures of ribs, right side, subsequent encounter for fracture with routine healing; S83.522D Sprain of posterior cruciate ligament of left knee, subsequent encounter; S00.81XD Abrasion of other part of head, subsequent encounter; S00.31XD Abrasion of nose, subsequent encounter; S30.811D Abrasion of abdominal wall, subsequent encounter; I10 Essential (primary) hypertension; K59.00 Constipation, unspecified; E11.65 Type 2 diabetes mellitus with hyperglycemia; G47.33 Obstructive sleep apnea (adult) (pediatric); V44.5XXD Car driver injured in collision with heavy transport vehicle or bus in traffic accident, subsequent encounter
CPT/HCPCS: 36415; 73502; 80053; 82947; 85025; 94760

== ENCOUNTER → 2021-07-09 | Outpatient (CLI) | payer OTHER, BC ==
[~2021-07-09] MED LIST changes: +ACHYD1T PO; +AMLO-251 PO; +CEPH250C PO; +DICL100G13 TOP; +DOCU100C37 PO; +ENOX30DI4 SQ; +HYDR-3820 PO; +HYDR12.56 PO; +INSU100V SQ; +LACT1CAP39 PO; +LOSA1TAB23 PO; +NALO4SPR NS; +NAPR220C11 PO; +PHEN37.58 PO; +SENN-234 PO
== END ==
LOC: WOUNDCARE 12:30
PROVIDERS: ATTEND Family Medicine
DX: L97.222 Non-pressure chronic ulcer of left calf with fat layer exposed (principal); L03.116 Cellulitis of left lower limb; E66.01 Morbid (severe) obesity due to excess calories; I89.0 Lymphedema, not elsewhere classified; S81.812A Laceration without foreign body, left lower leg, initial encounter
CPT/HCPCS: 11042; 11045; G0463

== ENCOUNTER → 2021-07-17 | Outpatient (CLI) | payer OTHER, BC | LOC: WOUNDCARE 11:07 | PROVIDERS: ATTEND Family Medicine | DX: I96 Gangrene, not elsewhere classified (principal); L97.222 Non-pressure chronic ulcer of left calf with fat layer exposed; S81.812A Laceration without foreign body, left lower leg, initial encounter; L03.116 Cellulitis of left lower limb; E66.01 Morbid (severe) obesity due to excess calories; I89.0 Lymphedema, not elsewhere classified; Z68.43 Body mass index [BMI] 50.0-59.9, adult | CPT/HCPCS: 11043; 11046; 87070; 87205; G0463; 87077 ==

== ENCOUNTER → 2021-07-17 | Outpatient (CLI) | payer OTHER, BC | LOC: LAB 11:44 | PROVIDERS: ATTEND Family Medicine | DX: L97.222 Non-pressure chronic ulcer of left calf with fat layer exposed (principal) | CPT/HCPCS: 36415; 83036 ==

== ENCOUNTER → 2021-07-25 | Outpatient (CLI) | payer OTHER | LOC: WOUNDCARE 10:24 | PROVIDERS: ATTEND Family Medicine | DX: L97.222 Non-pressure chronic ulcer of left calf with fat layer exposed (principal); L03.116 Cellulitis of left lower limb; E66.01 Morbid (severe) obesity due to excess calories; I89.0 Lymphedema, not elsewhere classified; S81.812A Laceration without foreign body, left lower leg, initial encounter; B95.61 Methicillin susceptible Staphylococcus aureus infection as the cause of diseases classified elsewhere; I96 Gangrene, not elsewhere classified | CPT/HCPCS: 11042; G0463 ==

== ENCOUNTER → 2021-07-31 | Outpatient (CLI) | payer OTHER | LOC: WOUNDCARE 10:56 | PROVIDERS: ATTEND Family Medicine | DX: I96 Gangrene, not elsewhere classified (principal); L97.222 Non-pressure chronic ulcer of left calf with fat layer exposed; L03.116 Cellulitis of left lower limb; E66.01 Morbid (severe) obesity due to excess calories; I89.0 Lymphedema, not elsewhere classified; S81.812A Laceration without foreign body, left lower leg, initial encounter; B95.62 Methicillin resistant Staphylococcus aureus infection as the cause of diseases classified elsewhere; Z68.43 Body mass index [BMI] 50.0-59.9, adult | CPT/HCPCS: 11042; G0463 ==

== ENCOUNTER → 2021-08-07 | Outpatient (CLI) | payer OTHER | LOC: WOUNDCARE 10:55 | PROVIDERS: ATTEND Family Medicine | DX: L97.222 Non-pressure chronic ulcer of left calf with fat layer exposed (principal); E66.01 Morbid (severe) obesity due to excess calories; I89.0 Lymphedema, not elsewhere classified; S81.812A Laceration without foreign body, left lower leg, initial encounter; B95.61 Methicillin susceptible Staphylococcus aureus infection as the cause of diseases classified elsewhere; I96 Gangrene, not elsewhere classified | CPT/HCPCS: 11042; G0463 ==

== ENCOUNTER → 2021-08-14 | Outpatient (CLI) | payer OTHER | LOC: WOUNDCARE 10:57 | PROVIDERS: ATTEND Family Medicine | DX: L97.222 Non-pressure chronic ulcer of left calf with fat layer exposed (principal); E66.01 Morbid (severe) obesity due to excess calories; I89.0 Lymphedema, not elsewhere classified; S81.812A Laceration without foreign body, left lower leg, initial encounter; I96 Gangrene, not elsewhere classified | CPT/HCPCS: 11042; G0463 ==

== ENCOUNTER → 2021-08-19 | Outpatient (RCR) | payer BC, OTHER | END | disposition home or self-care (01) | PROVIDERS: ATTEND Nurse Practitioner Family | DX: S72.91XD Unspecified fracture of right femur, subsequent encounter for closed fracture with routine healing (principal); S83.522D Sprain of posterior cruciate ligament of left knee, subsequent encounter; V89.2XXD Person injured in unspecified motor-vehicle accident, traffic, subsequent encounter ==

== ENCOUNTER → 2021-08-20 | Outpatient (CLI) | payer OTHER | LOC: WOUNDCARE 13:10 | PROVIDERS: ATTEND Family Medicine | DX: L97.222 Non-pressure chronic ulcer of left calf with fat layer exposed (principal); E66.01 Morbid (severe) obesity due to excess calories; I89.0 Lymphedema, not elsewhere classified; S81.812A Laceration without foreign body, left lower leg, initial encounter; I96 Gangrene, not elsewhere classified | CPT/HCPCS: 11042; A6021; A6212; G0463 ==

== ENCOUNTER → 2021-08-28 | Outpatient (CLI) | payer OTHER | LOC: WOUNDCARE 10:57 | PROVIDERS: ATTEND Family Medicine | DX: L97.222 Non-pressure chronic ulcer of left calf with fat layer exposed (principal); E66.01 Morbid (severe) obesity due to excess calories; I89.0 Lymphedema, not elsewhere classified; S81.812A Laceration without foreign body, left lower leg, initial encounter; I96 Gangrene, not elsewhere classified | CPT/HCPCS: 11042; A6021; A6212; G0463 ==

== ENCOUNTER → 2021-09-04 | Outpatient (CLI) | payer OTHER | LOC: WOUNDCARE 10:53 | PROVIDERS: ATTEND Family Medicine | DX: L97.222 Non-pressure chronic ulcer of left calf with fat layer exposed (principal); E66.01 Morbid (severe) obesity due to excess calories; I89.0 Lymphedema, not elsewhere classified; S81.812A Laceration without foreign body, left lower leg, initial encounter; I96 Gangrene, not elsewhere classified | CPT/HCPCS: 11042; A6212; G0463 ==

== ENCOUNTER → 2021-09-11 | Outpatient (CLI) | payer OTHER | LOC: WOUNDCARE 10:46 | PROVIDERS: ATTEND Family Medicine | DX: I96 Gangrene, not elsewhere classified (principal); L97.222 Non-pressure chronic ulcer of left calf with fat layer exposed; E66.01 Morbid (severe) obesity due to excess calories; I89.0 Lymphedema, not elsewhere classified; S81.812A Laceration without foreign body, left lower leg, initial encounter; Z68.43 Body mass index [BMI] 50.0-59.9, adult | CPT/HCPCS: 11042; G0463 ==

== ENCOUNTER 2021-09-13 12:53 | Outpatient (RCR) | payer OTHER | END 2021-09-16 | disposition home or self-care (01) | PROVIDERS: ATTEND Nurse Practitioner Family | DX: S72.91XD Unspecified fracture of right femur, subsequent encounter for closed fracture with routine healing (principal); S83.522D Sprain of posterior cruciate ligament of left knee, subsequent encounter; V89.2XXD Person injured in unspecified motor-vehicle accident, traffic, subsequent encounter ==

== ENCOUNTER 2021-09-17 08:55 | Outpatient (RCR) | payer OTHER ==
[2021-09-23] MEDS ORDERED: RIVA15TA2 PO (14:14)
== END 2021-10-17 | disposition home or self-care (01) ==
PROVIDERS: ATTEND Nurse Practitioner Family
DX: S72.91XD Unspecified fracture of right femur, subsequent encounter for closed fracture with routine healing (principal); S83.522D Sprain of posterior cruciate ligament of left knee, subsequent encounter; I10 Essential (primary) hypertension; V89.2XXD Person injured in unspecified motor-vehicle accident, traffic, subsequent encounter

== ENCOUNTER → 2021-09-18 | Outpatient (CLI) | payer OTHER | LOC: WOUNDCARE 10:52 | PROVIDERS: ATTEND Family Medicine | DX: L97.222 Non-pressure chronic ulcer of left calf with fat layer exposed (principal); E66.01 Morbid (severe) obesity due to excess calories; I89.0 Lymphedema, not elsewhere classified; S81.812A Laceration without foreign body, left lower leg, initial encounter; I96 Gangrene, not elsewhere classified | CPT/HCPCS: 99212 ==

== ENCOUNTER 2021-09-22 20:17 | Emergency (ER) | payer OTHER, BC ==
[~2021-09-22] VITALS: Ht 178 cm; Wt 167.8 kg
[2021-09-22 20:28] VITALS: BP 185/129
[2021-09-22 20:44] LABS: BASOPHILS # (AUTO) 0.1 10^3/uL (0.0-0.1); BASOPHILS % (AUTO) 1 % (0-10); EOSINOPHILS # (AUTO) 0.1 10^3/uL (0.0-0.3); EOSINOPHILS % (AUTO) 1 % (0-10); HEMATOCRIT 44 % (40-54); HEMOGLOBIN 14.1 g/dL (13.3-17.7); LYMPHOCYTES # (AUTO) 1.7 10^3/uL (1.0-4.0); LYMPHOCYTES % (AUTO) 16 % (12-44); MEAN CORPUSCULAR HEMOGLOBIN 28 pg (25-34); MEAN CORPUSCULAR HGB CONC 32 g/dL (32-36); MEAN CORPUSCULAR VOLUME 87 fL (80-99); MEAN PLATELET VOLUME 10.5 fL (9.0-12.2); MONOCYTES # (AUTO) 0.7 10^3/uL (0.0-1.0); MONOCYTES % (AUTO) 6 % (0-12); NEUTROPHILS % (AUTO) 75 % (42-75); PLATELET COUNT 329 10^3/uL (130-400); WHITE BLOOD COUNT 10.6 10^3/uL (4.3-11.0)
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
[2021-09-22 20:54] LABS: POTASSIUM 3.6 MMOL/L (3.6-5.0)
[2021-09-22 20:55] LABS: CALCIUM 9.4 MG/DL (8.5-10.1)
[2021-09-22 20:56] LABS: TOTAL PROTEIN 7.6 GM/DL (6.4-8.2)
[2021-09-22 20:58] LABS: BILIRUBIN,TOTAL 0.6 MG/DL (0.1-1.0)
[2021-09-22 21:00] LABS: CREATININE SERUM 0.84 MG/DL (0.60-1.30)
[2021-09-22 21:09] LABS: PROTHROMBIN TIME PATIENT 13.3 SEC (12.2-14.7)
[2021-09-22] MEDS ORDERED: ENOXAPARIN 40 MG/0.4 ML (LOVENOX) SYR SC ONE (21:15)
[2021-09-23] MEDS ORDERED: RIVA15TA2 PO (14:14)
== END 2021-09-22 21:25 | disposition home or self-care (01) ==
LOC: EDUNIT# 20:17 → ER 20:21
DX: M79.661 Pain in right lower leg (principal)
CPT/HCPCS: 36415; 80053; 85025; 85610; 85730; 99281

== ENCOUNTER → 2021-09-23 | Outpatient (CLI) | payer OTHER, BC ==
[~2021-09-23] MED LIST changes: +RIVA15TA2 PO
--- NOTE | 2021-09-23 15:24 | Diagnostic Imaging Report ---
PROCEDURE: US right lower extremity venous. TECHNIQUE: Multiple real-time grayscale images were obtained over the right lower extremity in various projections. Additional spectral analysis and color Doppler duplex images were also obtained. INDICATION: Pain and swelling. FINDINGS: There is deep venous thrombosis in the distal superficial femoral vein and popliteal vein. The remainder of the right lower extremity venous system is widely patent. There are no abnormal fluid collections or masses. IMPRESSION: Deep venous thrombosis in the distal superficial femoral vein extending into the popliteal vein. Dictated by: Dictated on workstation # [id number]
== END ==
LOC: RAD 13:28
PROVIDERS: ATTEND Physician Assistant
DX: I82.411 Acute embolism and thrombosis of right femoral vein (principal)

== ENCOUNTER → 2021-09-25 | Outpatient (CLI) | payer OTHER, BC | LOC: WOUNDCARE 13:27 | PROVIDERS: ATTEND Family Medicine | DX: I96 Gangrene, not elsewhere classified (principal); L97.222 Non-pressure chronic ulcer of left calf with fat layer exposed; E66.01 Morbid (severe) obesity due to excess calories; I89.0 Lymphedema, not elsewhere classified; S81.812A Laceration without foreign body, left lower leg, initial encounter; Z68.43 Body mass index [BMI] 50.0-59.9, adult | CPT/HCPCS: 99212 ==

== ENCOUNTER → 2021-11-01 | Outpatient (CLI) | payer OTHER, BC ==
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
== END ==
LOC: RAD 08:47
PROVIDERS: ATTEND Nurse Practitioner Family
DX: S22.39XD Fracture of one rib, unspecified side, subsequent encounter for fracture with routine healing (principal); S22.20XD Unspecified fracture of sternum, subsequent encounter for fracture with routine healing; V89.2XXD Person injured in unspecified motor-vehicle accident, traffic, subsequent encounter
CPT/HCPCS: 71110; 71120